=== PATIENT | male | born 1980 | race African-American/Black ===

== ENCOUNTER 2023-07-24 14:29 | Emergency (ER) | payer BC, SELFPAY ==
[2023-07-24] VITALS (12 sets, daily range): BP systolic 141–179; BP diastolic 85–114; PULSE 85–104; RESP 13–25; TEMP 37; O2SAT 91–99
--- NOTE | ~2023-07-24 | CT_ITS ---
EXAMINATION: CT abdomen pelvis w con DATE: 07/24/2023 15:36 INDICATION: Epigastric tenderness TECHNIQUE: Computed tomography (CT) of the abdomen and pelvis was performed with 100 mL Omnipaque-350 intravenous contrast. Automated exposure control and iterative reconstruction technique were employe d. The dose-length product was 1716.12 mGy-cm. COMPARISON: CT dated 10/09/2013 FINDINGS: Aside nodules in the right lower lobe along with calcified right hilar and mediastinal lymph nodes co nsistent with old granulomatous disease. Heart size is normal. No pericardial or pleural effusion. Li frank, gallbladder, spleen, pancreas, bilateral adrenal glands and kidneys are normal. Normal appendix. Postoperative change of interval ventral hernia repair. Multiple loops extend along the undulating c ontour of a likely mesh at the site of repair. A small loop of small bowel appears to extend to a res idual hernia to the left of midline at the site of prior repair, unclear whether this extends through a defect in the mass or at the margin of the mesh. No bowel obstruction. Bladder is normal. No free intraperitoneal gas or fluid. No pathologically enlarged abdominal or pelvic lymphadenopathy. Mild t horacic spondylosis. IMPRESSION: 1. Interval ventral hernia repair, likely with mesh persistent herniation of a nonobstructed small lo op of small bowel at the site of repair, unclear whether this is a defect in the mesh or peripheral t o the mass. Reviewed, dictated and finalized at location A. IMPRESSION: 1. Interval ventral hernia repair, likely with mesh persistent herniation of a nonobstructed small loop of small bowel at the site of repair, unclear whether this is a defect in the mesh or peripheral to the mass.
[2023-07-24 14:59] LABS: Basophils Absolute Auto 0.1 K/mm3 (0.0-0.1); Basophils Percent Auto 0.4 % (0.2-1.2); Eosinophils Absolute Auto 0.2 K/mm3 (0-0.3); Eosinophils Percent Auto 1.4 % (0-4.4); Hemoglobin 16.4 g/dL (14.0-18.0); Immature Granulocyte Absolute 0.05 K/mm3 (0.00-0.031); Immature Granulocyte Percent A 0.4 % (0-0.5); Lymphocytes Absolute Auto 4.75 K/mm3 (0.9-3.2); Mean Corpuscular HGB Conc 33.5 g/dl (32-36); Mean Corpuscular Hemoglobin 29.1 pg (26-34); Mean Corpuscular Volume 86.9 fl (80-100); Mean Platelet Volume 10.3 fl (7.4-10.4); Monocytes Absolute Auto 0.7 K/mm3 (0.1-0.6); Monocytes Percent Auto 5.6 % (2.6-8.5); Neutrophils Absolute Auto 6.5 K/mm3 (1.3-6.7); Neutrophils Percent Auto 53.2 % (45.5-73.1); Platelet Count Result 382 k/mm3 (150-375); Red Blood Count 5.64 M/mm3 (4.6-6.20); Red Cell Distribution Width 12.2 % (11.5-14.5); White Blood Count 12.2 K/mm3 (4.5-10.0)
[2023-07-24 15:05] LABS: Alanine Aminotransferase 28 U/L (6-50); Albumin Level 4.4 g/dL (3.5-5.1); Alkaline Phosphatase 95 U/L (38-126); Anion Gap 10 mmol/L (4-12); Aspartate Amino Transferase 26 U/L (17-59); Bilirubin,Total 0.6 mg/dL (0.2-1.3); Blood Urea Nitrogen 12 mg/dL (9-20); Calcium 9.3 mg/dL (8.4-10.2); Carbon Dioxide 25 mmol/L (22-30); Chloride 101 mmol/L (98-107); Estimated CRCL calculation 176 ml/min; Estimated Glomerular Filt Rate > 60; Glucose 384 mg/dL (65-110); Lipase 81 U/L (23-300); Potassium 4.1 mmol/L (3.4-5.0); Sodium 136 mmol/L (137-145)
--- NOTE | 2023-07-24 15:16 | ED.ABDPAIN ---
HPI - Abdominal Pain General Chief Complaint: Abdominal Pain Stated Complaint: abd pain Time Seen by Provider: 07/24/23 14:37 Source: patient Mode of arrival: ambulatory Limitations: no limitations History of Present Illness HPI narrative: this is a 43-year-old male who presents to the ED with chief complaint of abdominal pain ongoing for the past several weeks. It is intermittent in nature. Unsure of exact exacerbating factors but does note worsening with certain movements or positions. He also states sometimes food makes it worse. Located primarily in the epigastrium but has been described as diffuse as well. Reports history of multiple hernia repairs in the past. He has had SBO in the past but does not feel the same today. Endorses regular bowel movements and regular urination. Denies fevers, chills, nausea, vomiting Related Data Allergies Allergy/AdvReac Type Severity Reaction Status Date / Time No Known Allergies Allergy Verified 07/24/23 14:44 [facility] Social History Social History (System 06/24/20 @ 09:41 by Alan Grande) Smoking status: Never smoker Alcohol intake: never Course Vital Signs Vital signs: Vital Signs Temperature 98.6 F 07/24/23 14:33 Pulse Rate 95 07/24/23 14:33 Respiratory Rate 14 07/24/23 14:33 Blood Pressure 141/89 H 07/24/23 14:33 Pulse Oximetry 98 07/24/23 14:33 Oxygen Delivery Room Air 07/24/23 14:33 Temperature 98.6 F 07/24/23 14:33 Pulse Rate 89 07/24/23 16:37 Respiratory Rate 16 07/24/23 16:37 Blood Pressure 144/90 H 07/24/23 16:37 Pulse Oximetry 94 07/24/23 16:37 Oxygen Delivery Room Air 07/24/23 14:33 MDM - Abdominal Pain MDM Narrative Medical decision making narrative: This is a 43-year-old male who presents to the ED with chief complaint of generalized abdominal pain for the past month. Vitals are normal. Exam is remarkable for the above. No peritoneal signs. He is not toxic appearing. Lab work shows mildly elevated white count of 12.2, consistent with acute phase reaction. Glucose is 384. He has also had symptoms of diabetes And has only been taking metformin 500 once daily. Urinalysis unremarkable, aside from glucose CT abdomen and pelvis with IV contrast: IMPRESSION: 1. Interval ventral hernia repair, likely with mesh persistent herniation of a nonobstructed small loop of small bowel at the site of repair, unclear whether this is a defect in the mesh or peripheral to the mass.. Overall presentation is consistent with uncomplicated hernia. Pain is controlled here. Follow-up given for surgery. We also discussed that he needs to increase his metformin to twice daily and talk to his PCP about his elevated sugars. He was given 2 L of fluids here. Pt will be discharged in stable condition. Return precautions given and supportive measures discussed. Pt is understanding and agreeable with plan for discharge and follow-up with PCP. Lab Data 07/24/23 14:45 07/24/23 14:45 Labs: Lab Results 07/24/23 Range/Units 14:45 WBC 12.2 H (4.5-10.0) K/mm3 RBC 5.64 (4.6-6.20) M/mm3 Hgb 16.4 (14.0-18.0) g/dL Hct 49.0 (42.0-52.0) % MCV 86.9 (80-100) fl MCH 29.1 (26-34) pg MCHC 33.5 (32-36) g/dl RDW 12.2 (11.5-14.5) % Plt Count 382 H (150-375) k/mm3 MPV 10.3 (7.4-10.4) fl Immature Gran % (Auto) 0.4 (0-0.5) % Neut % (Auto) 53.2 (45.5-73.1) % Lymph % (Auto) 39.0 (18.3-44.2) % [place] % (Auto) 5.6 (2.6-8.5) % Eos % (Auto) 1.4 (0-4.4) % Baso % (Auto) 0.4 (0.2-1.2) % Lymph # (Auto) 4.75 H (0.9-3.2) K/mm3 [place] # (Auto) 0.7 H (0.1-0.6) K/mm3 Eos # (Auto) 0.2 (0-0.3) K/mm3 Baso # (Auto) 0.1 (0.0-0.1) K/mm3 Abs Immat Gran (auto) 0.05 H (0.00-0.031) K/mm3 Absolute Neuts (auto) 6.5 (1.3-6.7) K/mm3 Absolute Nucleated RBC 0.000 (0.0-0.012) K/mm3 Nucleated RBC % 0.0 (0.0-0.2) % Sodium 136 L (137-145) mmol/L Potassium 4.1 (3.4-5
[2023-07-24 15:26] LABS: Add Urine Microscopic? YES; Appearance Urine Clear (Clear); Bacteria Urine None Seen /hpf; Bilirubin Urine Negative (Negative); Blood Urine 1+ (Negative); Color Urine Yellow (Yellow); Glucose Urine UA 3+ mg/dL (Negative); Ketones Urine Negative (Negative); Leukocyte Esterase Ur Negative LEU/UL (Negative); Need Manual Microscopic Reviewed; Nitrate Urine Negative (Negative); Non Pathogenic Casts 0-2; Protein Urine Negative (Negative); RBC Urine 0-2 /hpf (0-2); Specific Grav Ur 1.038 (1.001-1.035); Squamous Epithelial Cell Urine None Seen /hpf (Few); Urobilinogen Urine 0.2 mg/dL (<2.0); pH Urine 5.5 (5.0-9.0)
--- NOTE | 2023-07-24 15:36 | PC.NURSE ---
Pt to CT scan via stretcher at this time.
[2023-07-24] MEDS: SODIUM CHLORIDE 0.9% IV 1,000 ML 999 ML IV CONT ×2 (15:42→15:43)
[2023-07-24] MEDS: ONDANSETRON INJ 4 MG/2 ML VIAL IV PUSH (15:43)
[2023-07-24] MEDS: MORPHINE SULFATE (*CRX) 4 MG/ML INJ IV PUSH (15:43)
== END 2023-07-24 16:55 | disposition home or self-care (01) ==
PROVIDERS: Emergency Medicine; Emergency Provider Physician Assistant; PCP Family Medicine
DX: K46.9 Unspecified abdominal hernia without obstruction or gangrene (principal); R73.9 Hyperglycemia, unspecified
CPT/HCPCS: 36415; 74177; 80053; 81001; 83690; 85025; 87086; 87088; 96361; 96374; 96375; 99284; J2270; J2405; J7030; Q9967

== ENCOUNTER 2024-10-27 11:06 | Inpatient (IN) | payer SELFPAY ==
[2024-10-27] VITALS (17 sets, daily range): BP systolic 125–187; BP diastolic 72–106; PULSE 127–144; RESP 21–49; TEMP 37.3–40.3; O2SAT 92–97; BMI 45.6
--- NOTE | ~2024-10-27 | CT_ITS ---
EXAMINATION: CT chest abdomen pelvis w con DATE: 10/27/2024 14:30 INDICATION: Sepsis. TECHNIQUE: Computed tomography (CT) of the chest, abdomen, and pelvis was performed with 100 mL Omnipaque 350 intravenous contrast. Automated exposure control and iterative reconstruction technique were employed. The dose-length product was 3955.72 mGy-cm. COMPARISON: CT abdomen and pelvis 07/24/2023 FINDINGS: CHEST CT: The lungs demonstrate mild atelectasis. Calcified right hilar lymph nodes are consistent with old granulomatous disease. No pleural effusion. The heart size is normal. No pericardial effusion. There is wall thickening of the esophagus. There is mild thoracic spondylosis. ABDOMEN/PELVIS CT: The liver, gallbladder, spleen, pancreas, adrenal glands, and kidneys are normal. There is a ventral hernia containing nonobstructed small and large bowel. The appendix is normal. There are no pathologically enlarged lymph nodes. There is no free intraperitoneal fluid. There is mild lumbar spondylosis. IMPRESSION: 1. Wall thickening of the esophagus, which may be edema or esophagitis. 2. Ventral hernia containing nonobstructed small and large bowel. Reviewed, dictated and finalized at location E.
--- NOTE | ~2024-10-27 | US_ITS ---
BILATERAL LOWER EXTREMITY VENOUS DUPLEX Clinical History: edema, immobility . Comparison: None. Technique: Grayscale, color, duplex/spectral Doppler sonography bilateral lower extremities. Findings: Bilateral common femoral, femoral, popliteal, and calf veins compressible and color Doppler patent. Normal augmentation with distal compression. No internal echoes. Bilateral Klein's cysts. IMPRESSION: 1. No DVT either leg. 2. Bilateral Klein's cysts. Reviewed, dictated and finalized at location R.
--- NOTE | ~2024-10-27 | XR_ITS ---
Examination: XR chest 2V Clinical History: weakness, SOB, NUMBNESS IN LEGS Comparison: None Technique: PA and Lateral Findings: Cardiomediastinal silhouette normal size and configuration. Lungs clear. No acute bony abnormality. IMPRESSION: 1. No acute cardiopulmonary findings. Reviewed, dictated and finalized at location R.
--- NOTE | ~2024-10-27 | CT_ITS ---
EXAMINATION: CT hip RT wo con DATE: 10/30/2024 11:58 INDICATION: Right hip pain TECHNIQUE: High resolution computed tomography (CT) of the right hip was performed without intravenous contrast. Additional sagittal and coronal reconstructions were performed. Automated exposure control and iterative reconstruction technique were employed. The dose-length product was 1055.12 mGy-cm. COMPARISON: 10/27/2024 FINDINGS: Alignment is normal. No fracture or suspected osteonecrosis. 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 There is anterior right acetabular over coverage which could predispose towards pincer-type femoral acetabular impingement. No right hip joint effusion or other abnormal fluid collections. Visualized portions of bowels including the appendix are normal. Minimal lower lumbar spondylosis. IMPRESSION: 1. Mild degenerative skeletal changes the right hip, bilateral sacralized joints and visualized lower lumbar spine. No acute osseous abnormality. Reviewed, dictated and finalized at location A. IMPRESSION: 1. Mild degenerative skeletal changes the right hip, bilateral sacralized joint s and visualized lower lumbar spine. No acute osseous abnormality.
--- NOTE | ~2024-10-27 | CT_ITS ---
EXAMINATION: CT cervical spine w con DATE: 10/28/2024 16:56 INDICATION: Bacteremia. Muscle weakness. TECHNIQUE: Computed tomography (CT) of the cervical spine was performed with 100 mL Omnipaque 350 intravenous contrast. Automated exposure control and iterative reconstruction technique were employed. The dose-length product was 570.44 mGy-cm. COMPARISON: None FINDINGS: There is kyphosis of cervical spine. There is 3 mm dextrocurvature of cervical spine. Vertebral body heights are normal. There is mildly decreased disc height at C4-C5 and C5-C6 and severely decreased disc height at C6-C7. The following disc levels are specifically discussed: C2-C3: There is mild right uncovertebral joint osteoarthritis. There is no facet joint osteoarthritis. There is no neural foraminal stenosis. There is no central canal stenosis. C3-C4: There is no uncovertebral joint osteoarthritis. There is no facet joint osteoarthritis. There is no neural foraminal stenosis. There is no central canal stenosis. C4-C5: There is no uncovertebral joint osteoarthritis. There is mild bilateral facet joint osteoarthritis. There is no neural foraminal stenosis. There is no central canal stenosis. C5-C6: There is mild bilateral uncovertebral joint osteoarthritis. There is mild bilateral facet joint osteoarthritis. There is mild bilateral neural foraminal stenosis. There is mild central canal stenosis. C6-C7: There is severe bilateral uncovertebral joint osteoarthritis. There is moderate right and mild left facet joint osteoarthritis. There is mild right neural foraminal stenosis. There is mild central canal stenosis. C7-T1: There is no uncovertebral joint osteoarthritis. There is no facet joint osteoarthritis. There is moderate bilateral neural foraminal stenosis. There is no central canal stenosis. IMPRESSION: 1. Severe cervical spondylosis. Reviewed, dictated and finalized at location E.
--- NOTE | ~2024-10-27 | CT_ITS ---
EXAMINATION: CT thoracic lumbar w con DATE: 10/28/2024 16:57 INDICATION: Bacteremia. Muscle weakness. TECHNIQUE: Computed tomography (CT) of the thoracic and lumbar spine was performed with 100 mL Omnipaque 350 intravenous contrast. Automated exposure control and iterative reconstruction technique were employed. The dose-length product was 2216.34 mGy-cm. COMPARISON: None FINDINGS: CT THORACIC SPINE: There is 5 degrees dextrocurvature of thoracic spine. Vertebral body heights are normal. There is mildly decreased disc height from T3-T4 through T6-T7 and at T9-T10. There is multilevel severe facet joint osteoarthritis. There is mild neural foraminal stenosis at multiple levels on either side. On the right, there is moderate neural foraminal stenosis at T1-T2. On the left, there is moderate neural foraminal stenosis at T6-T7. There is mild central canal stenosis at T4-T5 and T5-T6. CT LUMBAR SPINE: Alignment is normal. Vertebral body heights are normal. There is mildly decreased disc height at L4-L5. There is multilevel [id number] facet joint osteoarthritis. The discs are bulging from L3-L4 through L5-S1. There is mild bilateral neural foraminal stenosis from L3-L4 through L5-S1. There is mild central canal stenosis at the disc levels from L3-L4 through L5- S1. IMPRESSION: 1. Mild thoracic and lumbar spondylosis. Reviewed, dictated and finalized at location E.
--- NOTE | 2024-10-27 11:21 | ECG_ITS ---
Test Date: 2024-10-27 11:46:24 Measurements Intervals [place] Rate: 141 P: 63 KS: 144 QRS: 10 QRSD: 101 T: 15 QT: 276 QTc: 423 Interpretive Statements SINUS TACHYCARDIA LOW VOLTAGE POOR R-WAVE PROGRESSION ABNORMAL RHYTHM ECG No previous ECG available for comparison Electronically Signed On 10-27-2024 12:12:51 CDT by Umer Feliciano M.D.
[2024-10-27 12:27] LABS: Alanine Aminotransferase 41 U/L (6-50); Albumin Level 3.0 g/dL (3.5-5.1); Alkaline Phosphatase 254 U/L (38-126); Anion Gap 12 mmol/L (4-12); Aspartate Amino Transferase 52 U/L (17-59); Bilirubin,Total 1.9 mg/dL (0.2-1.3); Blood Urea Nitrogen 23 mg/dL (9-20); Calcium 9.4 mg/dL (8.4-10.2); Carbon Dioxide 20 mmol/L (22-30); Chloride 88 mmol/L (98-107); Estimated CRCL calculation 145 ml/min; Estimated Glomerular Filt Rate > 60; Glucose 348 mg/dL (65-110); Potassium 5.1 mmol/L (3.4-5.0); Sodium 120 mmol/L (137-145); Total Protein 8.0 g/dL (6.3-8.2)
[2024-10-27 12:30] LABS: Hematocrit 39.3 % (42.0-52.0); Hemoglobin 13.2 g/dL (14.0-18.0); Immature Granulocyte Percent A 2.8 % (0-0.5); Lymphocytes Absolute Auto 1.09 K/mm3 (0.9-3.2); Mean Corpuscular HGB Conc 33.6 g/dl (32-36); Mean Corpuscular Hemoglobin 28.9 pg (26-34); Mean Corpuscular Volume 86.0 fl (80-100); Nucleated Red Blood Cells Absolute Auto 0.000 K/mm3 (0.0-0.012); Nucleated Red Blood Cells Perc 0.0 % (0.0-0.2); Platelet Count Result 259 k/mm3 (150-375); Red Blood Count 4.57 M/mm3 (4.6-6.20); White Blood Count 23.6 K/mm3 (4.5-10.0)
[2024-10-27 12:47] LABS: Schistocytes None Seen
[2024-10-27 13:05] LABS: Influenza A QL RT-PCR Negative (Negative); Influenza B QL RT-PCR Negative (Negative); RSV RNA, RT-PCR Negative (Negative); SARS-CoV-2 RNA PCR Negative (Negative)
[2024-10-27 13:26] LABS: INR 1.8; Partial Thromboplastin Time 31.0 Seconds (22.3-36.8); Prothrombin Time 20.4 Seconds (11.1-14.7)
--- NOTE | 2024-10-27 13:30 | PC.NURSE ---
ICE BAGS PLACED TO AXILLA AND BEHIND NECK DUE TO NOTED ELEVATED TEMP
[2024-10-27 13:40] LABS: Troponin I < 0.012 ng/mL (0.000-0.034)
--- NOTE | 2024-10-27 13:43 | PC.NURSE ---
attempt to place FC without success. attempted straight cath without success. patient was incontinent of urine.
[2024-10-27] MEDS: SODIUM CHLORIDE 0.9% IV 1,000 ML 999 ML IV CONT ×2 (13:55→13:56)
[2024-10-27] MEDS: SODIUM CHLORIDE 0.9% IV 500 ML 999 ML IV CONT (13:56)
[2024-10-27 13:59] LABS: Add Urine Microscopic? YES; Appearance Urine Cloudy (Clear); Glucose Urine UA 3+ mg/dL (Negative); Leukocyte Esterase Ur Negative LEU/UL (Negative); Need Manual Microscopic Reviewed; Nitrate Urine Negative (Negative); Non Pathogenic Casts >20; Specific Grav Ur 1.028 (1.001-1.035)
[2024-10-27 14:04] LABS: CRP 42.4 mg/dL (<1.0)
--- OUTSIDE RECORDS SUMMARY | 2024-10-27 14:54 | XMS_ITS | Clinical Summary ---
Author Organization [facility] Address [address] [place] [address] Phone Care Team Providers Care Cctv Technician Name Role Phone Herrera Morse MD Primary Care Provider [phone] Social History Tobacco Use Types Packs/Day Years Used Date Smoking Tobacco: Never Assessed Sex and Gender Information Value Date Recorded Sex Assigned at Not on file Legal Sex Male 8:20 AM CDT Gender Identity Not on file Sexual Orientation Not on file Plan of Treatment Upcoming Encounters Date Type Department Care Team (Late st Contact Info) Description 11/23/2024 3:00 PM CDT Office Visit [facility] - Endocrinology [facility] [address] [place] [address] Carmelo Otero MD [address] [facility] [address] [address] Health Maintenance Due Date Last Done Comments Hepatitis C Virus (HCV) Screening 1982 Hepatitis B Immunization (1 of 3 - 19+ 3-dose series) 2001 Human Papillomavirus (HPV) Immunization (1 - 3-dose SCDM series) 2009 SARS-COV-2 Immunization ( season) 2023 04/25/2020 Influenza Immunization (#1) 2024 01/15/2024 Respiratory Syncytial Virus (RSV) Immunization (Adult) (1 - 1-dose 75+ series) 2057 TdaP Immunization Completed 10/18/2022 Meningococcal Immunization (ACWY) Aged Out No longer eligible based on patient's age to complete this topic Pneumococcal Immunization Combined Aged Out No longer eligible based on patient's age to complete this topic Rotavirus Immunization Aged Out No lo nger eligible based on patient's age to complete this topic Care Teams Cctv Technician Relationship Specialty Start Date End Date Herrera Morse MD [address] [id number] PCP - General Internal Medicine 09/04/24
[2024-10-27] MEDS: CEFEPIME 1 GM in SODIUM CHLORIDE 0.9% IV 50 ML 100 ML IVPB ×2 (15:21→18:46)
--- NOTE | 2024-10-27 15:22 | P.HP_ITS ---
H&P: HPI History of Present Illness Date/Time: 10/27/24 15:22 Chief Complaint: Weakness Narrative: 44-year-old male presents the hospital with complaints of weakness. Due to patient's severe tachypnea he is unable to talk in complete sentences and is unable to give any details. No soft tissue infection found. Scrotal irritation present however the patient has been urinating on himself. According to nursing patient has been sitting in a recliner for some time due to feeling extremely ill. Patient states that we can give his brother medical information. And that he would want to be intubated for respiratory distress. Patient has a temperature 104.5? the emergency room, heart rate 144, 32 respirations per minute pulse ox at 95, on room air blood pressure of 143/90. His lab work shows leukocytosis at 23.6 hemoglobin of 13.2, sodium of 120 potassium of 5.1, chloride of 88, carbon dioxide 20, him BUN of 23, glucose of 348, lactic acid 2.8 followed by 1.9, alkaline phos of 254, total bili of 1.9, troponin negative, CRP 42.2 UA is cloudy with 2+ bilirubin, 21-50 rbc's negative for leukocyte esterase, negative for nitrates, chest x-ray shows no acute cardiopulmonary process. CT chest abdomen and pelvis show thickening of the esophagus edema versus esophagitis and ventricle hernia containing nonobstructive small bowel and large bowel. EKG shows sinus tachycardia at 141. Blood cultures have been taken. However there is no definitive infective source will admit to ICU. Patient started on IV fluids and cefepime with repeat labs at 6:00 p.m.. Review of Systems Review of Systems: ROS unobtainable: Yes unobtainable due to medical condition [facility] Past Medical History Medical History Diabetes Surgical History Surgical History History of incisional hernia repair Laparoscopic w mesh-2012 Open w mesh-2013 Family History Family History (Updated 10/27/24 @ 17:11 by Brandi Nino RN) Other Unknown family medical history Social History Social History Smoking status: Never smoker Alcohol intake: never Lack of Transportation: No Lack of Food: Never True Current Housing: I Have Housing Concerned About Future Housing: No Difficulty Paying Gas/Electric Bills: No Difficulty Paying for Meds: No Currently Unemployed: No Education: Decline to Answer Difficulty w/ Childcare or Family Care: No Spiritual care concerns: No Meds Home Medications and Allergies Home Medications ?Medication ?Instructions ?Recorded ?Confirmed ?Type ibuprofen 200 mg tablet 200 mg PO Q6H PRN fever or p ain 07/30/23 10/27/24 History metformin 500 mg tablet 500 mg PO DAILY 07/30/23 History Allergies Allergy/AdvReac Type Severity Reaction Status Date / Time No Known Allergies Allergy Verified 10/27/24 13:22 Vital Signs Vital Signs - 24 hr 10/27/24 11:08 10/27/24 11:25 10/27/24 13:37 Temperature 99.9 F H Pulse Rate 143 H 132 H 140 H Respiratory Rate 38 H 28 H Blood Pressure 187/106 H Pulse Oximetry 97 Oxygen Delivery Room Air 10/27/24 13:46 10/27/24 14:34 Temperature 104.5 F H Pulse Rate 144 H 137 H Respiratory Rate 32 H 35 H Blood Pressure 143/90 H 146/85 H Pulse Oximetry 95 93 Oxygen Delivery Exam Narrative: General: Mild distress HEENT: normocephalic, atraumatic. Mucous membranes moist. EOMI, PERRLA, bilateral sclera anicteric, no conjunctival injection. Neck supple without JVD, lymphadenopathy, or bruit. Respiratory: Diminished, tachypneic Cardiovascular: Tachycardic, Regular rate and rhythm, normal S1-S2 upon ascultation. No murmurs, rubs, or clicks. PMI is nondisplaced, capillary refill less than 3 second. Abdomen: Soft, round, no pulsatile masses, nondistended and nontender. No rebound, no guarding. Bowel sounds present to all four quadrants. No high pitch or tinkling sounds, resonant to percussion. Extremities: No cyanosis, clubbing,. Pulses are palpable 2/2. Weak in all 4 extremities Neuro: Alert and orientated x 4. PERRLA. Cranial nerves 2-12 intact without focal deficit. Skin: Diaphoretic Psych: pleasant, cooperative, normal speech, normal affect, no hallucinations, no dysarthia H&P: Results Labs Labs: Short CBC 10/27/24 Range/Units 12:06 WBC 23.6 H (4.5-10.0) K/mm3 Hgb 13.2 L D (14.0-18.0) g/dL Hct 39.3 L (42.0-52.0) % Plt Count 259 (150-375) k/mm3 BMP 10/27/24 12:06 Sodium 120 L Potassium 5.1 H Chloride 88 L Carbon Dioxide 20 L BUN 23 H D Creatinine 0.89 Glucose 348 H Calcium 9.4 Cardiac Enzymes 10/27/24 Range/Units 12:06 Troponin I < 0.012 (0.000-0.034) ng/mL Liver Function 10/27/24 Range/Units 12:06 Total Bilirubin 1.9 H (0.2-1.3) mg/dL AST 52 (17-59) U/L ALT 41 (6-50) U/L Alkaline Phosphatase 254 H (38-126) U/L Albumin 3.0 L (3.5-5.1) g/dL Urine 10/27/24 Range/Units 13:42 Urine Color Dark yellow (Yellow) Urine Appearance Cloudy H (Clear) Urine pH 6.0 (5.0-9.0) Ur Specific [place] 1.028 (1.001-1.035) Urine Protein 2+ H (Negative) mg/dL Urine Glucose (UA) 3+ H (Negative) mg/dL Assessment and Plan Assessment and plan (1) Acute respiratory failure: Code(s): J96.00 - Acute respiratory failure, unspecified whether with hypoxia or hypercapnia Status: Acute Assessment and Plan: Patient is severely tachypneic 30-50 breaths per minute ABG Holding off on intubation for now per ICU attending (2) Sepsis: Qualifiers: Sepsis acute organ dysfunction status: without acute organ dysfunction Sepsis type: sepsis due to unspecified organism Qualified Code(s): A41.9 - Sepsis, unspecified organism Code(s): A41.9 - Sepsis, unspecified organism Status: Acute Assessment and Plan: Patient with leukocytosis, fever, tachypnea, tachycardia on presentation with elevated lactic acid UA negative for infection, CT abdomen pelvis negative for infection, no soft tissue infection found unknown source Blood cultures pending Repeat labs at 6 pm Cefepime Fluid bolus in IVF aggressive fluid hydration Urine drug screen (3) DKA (diabetic ketoacidosis): Code(s): E11.10 - Type 2 diabetes mellitus with ketoacidosis without coma Status: Acute Assessment and Plan: Insulin drip per protocol Accu-Cheks q.1 hour BMP q.4 IVF (4) Acute hyponatremia: Code(s): E87.1 - Hypo-osmolality and hyponatremia Status: Acute Assessment and Plan: Nephrology consult BMP q.4 (5) Diabetes: Code(s): E11.9 - Type 2 diabetes mellitus without complications Status: Acute Assessment and Plan: Hold home diabetic medications Plan Contact phone number for patient's brother is not working. Patient does not have his cell phone with him and does not know his mother's phone number. When asked if anybody knows that the patient is in the hospital. He states that he put it on is [employer] an several people like it. Will contact nursing and warehouse technician to find contact information for family. Was able to get a Hold brother and he was able to come up to the ICU Quality VTE Prophylaxis VTE prophylaxis: mechanical ordered and pharmacologic ordered Hospitalist [facility] Advance Care Plan I have confirmed that the patient's Advanced Care Plan is present, code status is documented, or surrogate decision maker is listed in patient medical record.: Yes Medication Reconciliation I have utilized all available resources to obtain, update and review the patients current medications (includes all prescriptions, OTC, herbals, cannabis, and nutritional supplements).: Yes
--- NOTE | 2024-10-27 15:27 | ED.GENADULT ---
HPI - General Adult General Chief complaint: Weakness Stated complaint: unable to ambulate Time Seen by Provider: 10/27/24 12:27 Source: patient Mode of arrival: EMS Limitations: no limitations History of Present Illness HPI narrative: A 44-year-old with a history of morbid obesity, diabetes was brought in from home by EMS with complaints of generalized weakness associated with lower extremity pain. As per the EMS patient is being sitting in his recliner for unknown period of time. Upon EMS arrival patient was found to be soaking in his urine. Patient states that he is unable to walk secondary to pain in his lower extremities. He denies any fall. No history of fever or chills. Denies any nausea, vomiting or diarrhea. Patient states that he has not been taking his medication as well. Denies alcohol use. Related Data Home Medications ?Medication ?Instructions ?Recorded ?Confirmed ?Last Taken ?Type ibuprofen 200 mg tablet 200 mg PO Q6H PRN 07/30/23 08/02/23 Unknown History metformin 500 mg tablet 500 mg PO DAILY 07/30/23 08/02/23 Unknown History Allergies Allergy/AdvReac Type Severity Reaction Status Date / Time No Known Allergies Allergy Verified 10/27/24 13:22 Review of Systems Review of Systems: All systems reviewed & are unremarkable except as noted in HPI and below Constitutional: Constitutional: Reports no additional constitutional complaints Eyes: Eyes: Reports no additional eye complaints ENT: Reports system reviewed and no additional complaints, except as documented Cardiovascular: Cardiovascular: Reports no additional cardiovascular complaints Respiratory: Respiratory: Reports no additional respiratory complaints Gastrointestinal: Gastrointestinal: Reports no additional gastrointestinal complaints Genitourinary: Genitourinary: Reports no additional male genitourinary complaints Musculoskeletal: Musculoskeletal: Reports as per HPI Neurologic: Reports system reviewed and no additional complaints, except as documented [facility] Past Medical History Medical History Diabetes Surgical History Surgical History History of incisional hernia repair Laparoscopic w mesh-2012 Open w mesh-2013 Social History Social History Smoking status: Never smoker Alcohol intake: never Exam Narrative: GENERAL: Ill appearing,morbidly obese HEAD: Normocephalic, atraumatic. EYES: PERRLA and EOMI. ENT: Nares clear, no rhinorrhea or epistaxis. Mucous membranes moist. NECK: Supple. CHEST: Clear to auscultation. No respiratory distress. HEART: Tachycardic No murmur heard. Normal peripheral pulses. ABDOMEN: Soft, nontender, nondistended, normal active bowel sounds. EXTREMITIES: Normal range of motion. No edema. SKIN: Warm, dry, no rash. NEURO: No focal deficits. Alert and oriented x3. PSYCH: Normal mood and affect. Course Course Emergency Course: Patient upon arrival with a. The extremely ill he had a dry oral mucosa, tachycardic, tachypneic. Did order a sepsis workup on him did give him 2.5 L of normal saline bolus. Obtained lab work and CT of chest abdomen and pelvis. He is found to have elevated WBC count, sodium of 120 and a sepsis lactate of 2.9. his till remained tachycardic even after hydration . Discussed the findings with Dr. Barney advised to hydrate , continue Cefepime and consult Nephro . Vital Signs Vital signs: Vital Signs Temperature 37.7 C H 10/27/24 11:08 Pulse Rate 143 H 10/27/24 11:08 Respiratory Rate 38 H 10/27/24 11:08 Blood Pressure 187/106 H 10/27/24 11:08 Pulse Oximetry 97 10/27/24 11:08 Oxygen Delivery Room Air 10/27/24 11:08 Temperature 40.3 C H 10/27/24 13:46 Pulse Rate 137 H 10/27/24 14:34 Respiratory Rate 35 H 10/27/24 14:34 Blood Pressure 146/85 H 10/27/24 14:34 Pulse Oximetry 93 10/27/24 14:34 Oxygen Delivery Room Air 10/27/24 11:08 Medical Decision Making MDM Narrative Medical decision making narrative: 44-year-old with morbid, measures area of pain just not feeling well, generalized weakness. Upon arrival he is tachypneic started will do septic workup. Differential Diagnosis Differential Diagnosis: sepsis, pneumonia , dehydration , DKA .electrolyte abnormality Medical Records Medical records reviewed: Yes I reviewed the external patient's medical records. Vital Signs Vital Signs: Vital Signs Temperature 37.7 C H 10/27/24 11:08 Pulse Rate 143 H 10/27/24 11:08 Respiratory Rate 38 H 10/27/24 11:08 Blood Pressure 187/106 H 10/27/24 11:08 Pulse Oximetry 97 10/27/24 11:08 Oxygen Delivery Room Air 10/27/24 11:08 Temperature 40.3 C H 10/27/24 13:46 Pulse Rate 137 H 10/27/24 14:34 Respiratory Rate 35 H 10/27/24 14:34 Blood Pressure 146/85 H 10/27/24 14:34 Pulse Oximetry 93 10/27/24 14:34 Oxygen Delivery Room Air 10/27/24 11:08 Lab Data Lab results reviewed: Yes I reviewed the patient's lab results. 10/27/24 12:06 10/27/24 12:06 Labs: Lab Results 10/27/24 10/27/24 10/27/24 Range/Units 12:06 12:09 13:42 WBC 23.6 H (4.5-10.0) K/mm3 RBC 4.57 L (4.6-6.20) M/mm3 Hgb 13.2 L D (14.0-18.0) g/dL Hct 39.3 L (42.0-52.0) % MCV 86.0 (80-100) fl MCH 28.9 (26-34) pg MCHC 33.6 (32-36) g/dl RDW 13.8 (11.5-14.5) % Plt Count 259 (150-375) k/mm3 MPV 9.8 (7.4-10.4) fl Immature Gran % (Auto) 2.8 H (0-0.5) % Neut % (Auto) 88.0 H (45.5-73.1) % Lymph % (Auto) 4.6 L (18.3-44.2) % [place] % (Auto) 4.0 (2.6-8.5) % Eos % (Auto) 0.0 (0-4.4) % Baso % (Auto) 0.6 (0.2-1.2) % Lymph # (Auto) 1.09 (0.9-3.2) K/mm3 [place] # (Auto) 0.9 H (0.1-0.6) K/mm3 Eos # (Auto) 0.0 (0-0.3) K/mm3 Baso # (Auto) 0.2 H (0.0-0.1) K/mm3 Abs Immat Gran (auto) 0.65 H (0.00-0.031) K/mm3 Absolute Neuts (auto) 20.8 H (1.3-6.7) K/mm3 Absolute Nucleated RBC 0.000 (0.0-0.012) K/mm3 Band Neutrophils % Not Reportable Nucleated RBC % 0.0 (0.0-0.2) % Platelet Estimate Adequate (Adequate) Large Platelets Present Schistocytes None seen PT 20.4 H (11.1-14.7) Seconds INR 1.8 APTT 31.0 (22.3-36.8) Seconds Sodium 120 L (137-145) mmol/L Potassium 5.1 H (3.4-5.0) mmol/L Chloride 88 L (98-107) mmol/L Carbon Dioxide 20 L (22-30) mmol/L Anion Gap 12 (4-12) mmol/L BUN 23 H D (9-20) mg/dL Creatinine 0.89 (0.7-1.3) mg/dL Estim Creat Clear Calc 145 ml/min Estimated GFR > 60 (59 - ) Glucose 348 H (65-110) mg/dL Lactic Acid 2.9 H (0.7-2.0) mmol/L Calcium 9.4 (8.4-10.2) mg/dL Total Bilirubin 1.9 H (0.2-1.3) mg/dL AST 52 (17-59) U/L ALT 41 (6-50) U/L Alkaline Phosphatase 254 H (38-126) U/L Troponin I < 0.012 (0.000-0.034) ng/mL C-Reactive Protein 42.4 H (<1.0) mg/dL Total Protein 8.0 (6.3-8.2) g/dL Albumin 3.0 L (3.5-5.1) g/dL Urine Color Dark yellow (Yellow) Urine Appearance Cloudy H (Clear) Urine pH 6.0 (5.0-9.0) Ur Specific [place] 1.028 (1.001-1.035) Urine Protein 2+ H (Negative) mg/dL Urine Glucose (UA) 3+ H (Negative) mg/dL Urine Ketones 2+ H (Negative) mg/dL Ur Blood (Man) 2+ H (Negative) Urine Nitrate Negative (Negative) Urine Bilirubin 2+ H (Negative) Urine Urobilinogen 4.0 H (<2.0) mg/dL Add Ur Microanalysis Reviewed Leukocyte Esterase Rfl Negative (Negative) LINDA/UL Urine RBC 21-50 H (0-2) /hpf Urine WBC 0-5 (0-3) /hpf Ur Squamous Epith Cells Few (Few) /hpf Urine Bacteria None seen /hpf Urine Casts >20 Granular Casts 1-2 H (None) /lpf Influenza A (RT-PCR) Negative (Negative) Influenza B (RT-PCR) Negative (Negative) RSV (RT-PCR) Negative (Negative) SARS-CoV-2 RNA (RT-PCR) Negative (Negative) 10/27/24 Range/Units 15:06 WBC (4.5-10.0) K/mm3 RBC (4.6-6.20) M/mm3 Hgb (14.0-18.0) g/dL Hct (42.0-52.0) % MCV (80-100) fl MCH (26-34) pg MCHC (32-36) g/dl RDW (11.5-14.5) % Plt Count (150-375) k/mm3 MPV (7.4-10.4) fl Immature Gran % (Auto) (0-0.5) % Neut % (Auto) (45.5-73.1) % Lymph % (Auto) (18.3-44.2) % [place] % (Auto) (2.6-8.5) % Eos % (Auto) (0-4.4) % Baso % (Auto) (0.2-1.2) % Lymph # (Auto) (0.9-3.2) K/mm3 [place] # (Auto) (0.1-0.6) K/mm3 Eos # (Auto) (0-0.3) K/mm3 Baso # (Auto) (0.0-0.1) K/mm3 Abs Immat Gran (auto) (0.00-0.031) K/mm3 Absolute Neuts (auto) (1.3-6.7) K/mm3 Absolute Nucleated RBC (0.0-0.012) K/mm3 Band Neutrophils % Nucleated RBC % (0.0-0.2) % Platelet Estimate (Adequate) Large Platelets Schistocytes PT (11.1-14.7) Seconds INR APTT (22.3-36.8) Seconds Sodium (137-145) mmol/L Potassium (3.4-5.0) mmol/L Chloride (98-107) mmol/L Carbon Dioxide (22-30) mmol/L Anion Gap (4-12) mmol/L BUN (9-20) mg/dL Creatinine (0.7-1.3) mg/dL Estim Creat Clear Calc ml/min Estimated GFR (59 - ) Glucose (65-110) mg/dL Lactic Acid 1.9 (0.7-2.0) mmol/L Calcium (8.4-10.2) mg/dL Total Bilirubin (0.2-1.3) mg/dL AST (17-59) U/L ALT (6-50) U/L Alkaline Phosphatase (38-126) U/L Troponin I (0.000-0.034) ng/mL C-Reactive Protein (<1.0) mg/dL Total Protein (6.3-8.2) g/dL Albumin (3.5-5.1) g/dL Urine Color (Yellow) Urine Appearance (Clear) Urine pH (5.0-9.0) Ur Specific [place] (1.001-1.035) Urine Protein (Negative) mg/dL Urine Glucose (UA) (Negative) mg/dL Urine Ketones (Negative) mg/dL Ur Blood (Man) (Negative) Urine Nitrate (Negative) Urine Bilirubin (Negative) Urine Urobilinogen (<2.0) mg/dL Add Ur Microanalysis Leukocyte Esterase Rfl (Negative) LINDA/UL Urine RBC (0-2) /hpf Urine WBC (0-3) /hpf Ur Squamous Epith Cells (Few) /hpf Urine Bacteria /hpf Urine Casts Granular Casts (None) /lpf Influenza A (RT-PCR) (Negative) Influenza B (RT-PCR) (Negative) RSV (RT-PCR) (Negative) SARS-CoV-2 RNA (RT-PCR) (Negative) ABG Data Attestation: I personally reviewed and interpreted this ABG as follows: Interpretation: Normal Imaging Data Radiologist's impression: ITS Impressions Chest X-Ray 10/27/24 12:54 IMPRESSION: 1. No acute cardiopulmonary findings. Chest/Abdomen/Pelvis CT 10/27/24 14:37 IMPRESSION: 1. Wall thickening of the esophagus, which may be edema or esophagitis. 2. Ventral hernia containing nonobstructed small and large bowel. ECG Data EKG #1: ECG completion date: 10/27/24 ECG completion time: 11:46 EKG Interpretation: tachycardia (141), no ST changes and normal QRS Critical Care Time Critical Care Time Total Critical Care Time: 60 Discharge Plan Discharge Clinical Impression: Acute hyponatremia, Morbid obesity with BMI of 45.0-49.9, adult Sepsis Qualifiers: Sepsis type: sepsis due to unspecified organism Sepsis acute organ dysfunction status: without acute organ dysfunction Qualified Code(s): A41.9 - Sepsis, unspecified organism Patient Disposition: Still a Patient Condition: Critical Time of Disposition: 15:29
[2024-10-27] MEDS: ONDANSETRON INJ 4 MG/2 ML VIAL IV PUSH (15:50)
[2024-10-27 16:11] LABS: Alveolar/Arterial O2 Gradient 57.1 mmHg; Fractional Inspired Oxygen 21 %; HCO3 ABG 19.1 mEq/l (22.0-26.0); Oxygen Content ABG 16.4 %vol (16.0-22.0); Oxygen Saturation ABG 91.0 % (95.0-100.0); PCO2 ABG 29.5 mmHg (35.0-45.0); PO2 ABG 57.3 mmHg (80.0-100.0); PO2 FiO2 Ratio Arterial Blood 2.73 %
[2024-10-27] MEDS: ACETAMINOPHEN 650 MG SUPPOSITORY RECTAL (16:11)
[2024-10-27 16:12] LABS: Modified Allen's Test Pass; Site Drawn RIGHT RADIAL
[2024-10-27 16:17] LABS: Procalcitonin 9.1 ng/mL
--- NOTE | 2024-10-27 16:38 | ADMGEN ---
This patient, Pillo Bullard, was admitted to Intensive Care Unit-7. Patient/family oriented to hospital policies and general routines including ID bracelet, bed and alarms, visiting hours, pain management, procedures, bathroom and other care routines, personal items, smoking policy, room service/diet, and visiting hours. Information on how to activate the Rapid Response Team has been discussed. Patient/Family are encouraged to report perceived risks to care and to ask questions if they do not understand what they are told or what they should do.
[2024-10-27 16:39] LABS: Thyroid Stimulating Hormone Reflex 0.478 uIU/mL (0.465-4.68)
[2024-10-27 17:06] LABS: MRSA (PCR) DETECTED (NOT DETECTE)
--- NOTE | 2024-10-27 17:21 | PCCCNOTE ---
Asked by the Heating Technician to attempt to contact family. Stated the pt does not have his cell phone to contact his brother. No current record noted in the pt's chart. Spoke with the pt's nurse in ICU and heard the pt give verbal permission to speak with the brother Alfredo Torres? Pt was unable to spell his last name. Called [employer] at [phone] and spoke with dispatch #[id number] and requested a wellness check to share the pt's status and have him please call the hospital in which they are agreeable to do so.-sierra
--- NOTE | 2024-10-27 17:25 | PC.NURSE ---
Called Maryan Bang, asked to come assess patient at bedside. Spoke to her about patient's respirations being anywhere from high 30's-50's. Stated patient is very sweaty and color is off. Patient is still tachycardiac but it is improving.
[2024-10-27 17:26] LABS: Hematocrit 37.0 % (42.0-52.0); Hemoglobin 12.4 g/dL (14.0-18.0); Immature Granulocyte Percent A 2.9 % (0-0.5); Lymphocytes Absolute Auto 0.84 K/mm3 (0.9-3.2); Mean Corpuscular HGB Conc 33.5 g/dl (32-36); Mean Corpuscular Hemoglobin 28.9 pg (26-34); Mean Corpuscular Volume 86.2 fl (80-100); Nucleated Red Blood Cells Absolute Auto 0.000 K/mm3 (0.0-0.012); Nucleated Red Blood Cells Perc 0.0 % (0.0-0.2); Platelet Count Result 214 k/mm3 (150-375); Red Blood Count 4.29 M/mm3 (4.6-6.20); White Blood Count 19.8 K/mm3 (4.5-10.0)
[2024-10-27 17:39] LABS: Alanine Aminotransferase 31 U/L (6-50); Albumin Level 2.6 g/dL (3.5-5.1); Alkaline Phosphatase 234 U/L (38-126); Anion Gap 9 mmol/L (4-12); Aspartate Amino Transferase 46 U/L (17-59); Bilirubin,Total 1.4 mg/dL (0.2-1.3); Blood Urea Nitrogen 26 mg/dL (9-20); Calcium 8.6 mg/dL (8.4-10.2); Carbon Dioxide 17 mmol/L (22-30); Chloride 95 mmol/L (98-107); Creatine Kinase 118 U/L (55-170); Estimated CRCL calculation 151 ml/min; Estimated Glomerular Filt Rate > 60; Glucose 325 mg/dL (65-110); Potassium 4.6 mmol/L (3.4-5.0); Sodium 121 mmol/L (137-145); Total Protein 6.6 g/dL (6.3-8.2)
[2024-10-27 17:44] LABS: Hemoglobin A1C 10.8 % (<5.7)
[2024-10-27 17:56] LABS: Beta-Hydroxybutyrate/Acetoace. 1.29 mmol/L (0.02-0.27)
[2024-10-27] MEDS: LACTATED RINGERS 1,000 ML 999 ML IV CONT (18:49)
[2024-10-27] MEDS: INSULIN HUMAN REGULAR (*BKC) 100 UNITS in SODIUM CHLORIDE 0.9% IV 99 ML 15 UNITS IV CONT (20:52)
[2024-10-27] MEDS: SODIUM CHLORIDE 0.9% IV 1,000 ML 150 ML IV CONT (20:52)
--- NOTE | 2024-10-27 21:10 | PC.NURSE ---
Spoke with patient's brother, Aflredo, over the phone. Alfredo does not have a phone, but will have the patient's phone to be contacted. Patient's number is [phone].
[2024-10-27] MEDS: KCL 20 MEQ/D5/0.45% SOD CHL 1,000 ML 150 ML IV CONT (22:05)
[2024-10-27 22:14] LABS: Anion Gap 11 mmol/L (4-12); Blood Urea Nitrogen 25 mg/dL (9-20); Calcium 8.7 mg/dL (8.4-10.2); Carbon Dioxide 16 mmol/L (22-30); Chloride 96 mmol/L (98-107); Estimated CRCL calculation 165 ml/min; Estimated Glomerular Filt Rate > 60; Glucose 331 mg/dL (65-110); Potassium 4.5 mmol/L (3.4-5.0); Sodium 123 mmol/L (137-145)
[2024-10-27 22:42] LABS: Alveolar/Arterial O2 Gradient 62.9 mmHg; Carboxyhemoglobin 0.9 % THb (0-2.0); Fractional Inspired Oxygen 24 %; HCO3 ABG 21.4 mEq/l (22.0-26.0); Methemoglobin ABG 0.1 %THb (0-1.5); Oxygen Content ABG 16.7 %vol (16.0-22.0); Oxygen Saturation ABG 93.7 % (95.0-100.0); PCO2 ABG 34.5 mmHg (35.0-45.0); PO2 ABG 67.2 mmHg (80.0-100.0); PO2 FiO2 Ratio Arterial Blood 2.80 %; Reduced Hemoglobin 6.6 %THb (0-5.0)
[2024-10-27 22:44] LABS: Site Drawn RIGHT RADIAL
[2024-10-27 22:45] LABS: Liters per Minute 1.0 LPM; Modified Allen's Test Pass
[2024-10-27] MEDS: CEFEPIME 2 GM in SODIUM CHLORIDE 0.9% IV 50 ML 100 ML IVPB (22:57)
[2024-10-27 23:31] LABS: Cannabinoid Screen Urine Negative (Negative)
[2024-10-27] MEDS: IBUPROFEN IV 800 MG/200 ML 800 MG/200 ML BAG 400 MG IVPB (23:35)
[2024-10-28] VITALS (19 sets, daily range): BP systolic 108–144; BP diastolic 69–110; PULSE 102–130; RESP 16–36; TEMP 36.4–38.8; O2SAT 90–100
--- NOTE | 2024-10-28 | ECHO_ITS ---
Patient Info Name: Pillo Bullard Age: 44 years : 1980 Gender: Male Ht: 72 in Wt: 337 lbs BSA: 2.86 m2 HR: 106 bpm BP: 144 / 87 mmHg Heart Rhythm: Sinus Rhythm Technical Quality: Good Exam Date: 10/28/2024 3:18 PM Patient Status: I Admit Date: 10/27/2024 Exam Type: CA echo dop color flow w con Complete two-dimensional, color flow and Doppler transthoracic echocardiogram is performed with contrast to opacify the left ventricle and to improve the deliniation of the left ventricle endocardial borders. Staff Referring Physician: Radha Rucker Collator Hand: Micheline Isbell Attending Provider: Radha Rucker Contrast/Agitated Saline Contrast/Ag. Saline: Definity Amount: 2.00 ml Summary 1. Left ventricular chamber dimension is normal. 2. Left ventricular systolic function is normal, estimated at 65-70. 3. There is moderately increased left ventricular wall thickness. 4. The left ventricular diastolic function is normal. 5. There is mild tricuspid valve regurgitation. 6. No vegetations are seen, but this is not a definitive study for analysis of endocarditis. Left Ventricle Left ventricular chamber dimension is normal. Left ventricular systolic function is normal, estimated at 65-70. There is moderately increased left ventricular wall thickness. The left ventricular diastolic function is normal. Right Ventricle Right ventricular chamber dimension is normal. Right ventricular systolic function is normal. Left Atria Left atrial chamber dimension is normal. Right Atria Right atrial chamber dimension is normal. Atrial Septum Intact interatrial septum visualized by color flow imaging. Aortic Valve The aortic valve is trileaflet. There is no aortic valve sclerosis. There is no aortic valve stenosis. There is trace aortic valve regurgitation. Pulmonic Valve The pulmonic valve is normal. There is no pulmonic valve stenosis. There is trace pulmonic regurgitation. Mitral Valve The mitral valve has normal leaflets. There is no mitral valve stenosis. There is trace mitral valve regurgitation. Tricuspid Valve The tricuspid valve leaflets are normal. There is no significant tricuspid valve stenosis. There is mild tricuspid valve regurgitation. No pulmonary hypertension, estimated pulmonary arterial systolic pressure is 29 mmHg. Pericardium/Pleural The pericardium appears normal. There is no pericardial effusion. Inferior Vena Cava Normal inferior vena cava with >50% collapse upon inspiration consistent with normal right atrial pressure, 5 mmHg. Aorta The aortic root size at the sinus of Valsalva is normal. Left Ventricular Outflow Tract Name Value Normal LVOT 2D LVOT Diameter 2.2 cm LVOT Doppler LVOT Peak Velocity 130 cm/s LVOT Peak Gradient 7 mmHg LVOT Mean Gradient 3 mmHg LVOT VTI 22 cm LVOT Stroke Volume 88 ml LVOT CO 9.3 l/min LVOT CI 3.2 l/min/m2 Pulmonic Valve Name Value Normal RVOT Doppler RVOT Peak Velocity 95 cm/s RVOT Peak Gradient 4 mmHg PV Doppler PV Peak Velocity 142 cm/s PV Peak Gradient 8 mmHg Mitral Valve Name Value Normal MV Diastolic Function MV E Peak Velocity 109 cm/s MV A Peak Velocity 106 cm/s MV E/A 1.0 MV Decel Time (PW) 163 ms MV Annular TDI MV E/e' (Septal) 7.2 MV E/e' (Lateral) 6.8 MV E/e' (Average) 7.0 Tricuspid Valve Name Value Normal Estimated PAP/RSVP RA Pressure 5 mmHg <=5 PA Systolic Pressure 29 mmHg <36 Aortic Valve Name Value Normal AV Doppler AV Peak Velocity 161 cm/s AV Peak Gradient 10 mmHg AV Area (Cont Eq Krishan) 3.2 cm2 AV DI (Krishan) 0.81 AV Regurgitation 2D LVOT Area 3.9 cm2 Ventricles Name Value Normal LV Dimensions 2D/MM IVS Diastolic Thickness (2D) 1.3 cm 0.6-1.0 LVID Diastole (2D) 5.0 cm 4.2-5.8 LVIW Diastolic Thickness (2D) 1.4 cm 0.6-1.0 LVID Systole (2D) 3.1 cm 2.5-4.0 LVOT Diameter 2.2 cm LV Mass (2D Cubed) 272.01 g 88.00-224.00 LV Mass Index (2D Cubed) 95 g/m2 49-115 Relative Wall Thickness (2D) 0.56 <=0.42 LV Fractional Shortening/Ejection Fraction 2D/MM LV Fractional Shortening (2D) 38 % 25-43 LV EF (2D Teichholz) 68 % LV Diastolic Volume (4C MOD) 124 ml LV EF (4C MOD) 69 % LV Diastolic Volume (2C MOD) 109 ml LV EF (2C MOD) 66 % LV Diastolic Volume (BP MOD) 121 ml 62-150 LV Diastolic Volume Index (BP MOD) 42 ml/m2 34-74 LV Systolic Volume (BP MOD) 37 ml 21-61 LV Systolic Volume Index (BP MOD) 13 ml/m2 11-31 LV EF (BP MOD) 69 % 52-72 LV Diastolic Length (4C) 8.9 cm LV Systolic Length (4C) 7.4 cm LV Stroke Volume (4C MOD) 86 ml Atria Name Value Normal LA Dimensions LA Volume (4C A-L) 62 ml LA Volume (BP A-L) 83 ml RA Dimensions RA Systolic Major [place] Length (4C) 5.0 cm 2.1-2.7 RA Area (4C) 14.0 cm2 <=18.0 Report Signatures
[2024-10-28 01:08] LABS: Anion Gap 7 mmol/L (4-12); Blood Urea Nitrogen 24 mg/dL (9-20); Calcium 8.8 mg/dL (8.4-10.2); Carbon Dioxide 20 mmol/L (22-30); Chloride 100 mmol/L (98-107); Estimated CRCL calculation 159 ml/min; Estimated Glomerular Filt Rate > 60; Glucose 182 mg/dL (65-110); Potassium 3.9 mmol/L (3.4-5.0); Sodium 127 mmol/L (137-145)
[2024-10-28] MEDS: KCL 20 MEQ/D5/0.45% SOD CHL 1,000 ML 150 ML IV CONT (04:47)
[2024-10-28] MEDS: CEFEPIME 2 GM in SODIUM CHLORIDE 0.9% IV 50 ML 100 ML IVPB ×3 (05:03→21:26)
[2024-10-28 05:10] LABS: Anion Gap 4 mmol/L (4-12); Blood Urea Nitrogen 27 mg/dL (9-20); Calcium 8.6 mg/dL (8.4-10.2); Carbon Dioxide 22 mmol/L (22-30); Chloride 101 mmol/L (98-107); Estimated CRCL calculation 165 ml/min; Estimated Glomerular Filt Rate > 60; Glucose 223 mg/dL (65-110); Potassium 4.2 mmol/L (3.4-5.0); Sodium 127 mmol/L (137-145)
[2024-10-28 07:11] LABS: Hematocrit 35.4 % (42.0-52.0); Hemoglobin 11.5 g/dL (14.0-18.0); Immature Granulocyte Percent A 4.3 % (0-0.5); Lymphocytes Absolute Auto 1.23 K/mm3 (0.9-3.2); Mean Corpuscular HGB Conc 32.5 g/dl (32-36); Mean Corpuscular Hemoglobin 29.0 pg (26-34); Mean Corpuscular Volume 89.2 fl (80-100); Nucleated Red Blood Cells Absolute Auto 0.000 K/mm3 (0.0-0.012); Nucleated Red Blood Cells Perc 0.0 % (0.0-0.2); Platelet Count Result 166 k/mm3 (150-375); Red Blood Count 3.97 M/mm3 (4.6-6.20); White Blood Count 18.9 K/mm3 (4.5-10.0)
[2024-10-28 07:34] LABS: Anion Gap 5 mmol/L (4-12); Blood Urea Nitrogen 26 mg/dL (9-20); Calcium 8.6 mg/dL (8.4-10.2); Carbon Dioxide 21 mmol/L (22-30); Chloride 100 mmol/L (98-107); Estimated CRCL calculation 193 ml/min; Estimated Glomerular Filt Rate > 60; Glucose 248 mg/dL (65-110); Potassium 4.3 mmol/L (3.4-5.0); Sodium 126 mmol/L (137-145)
[2024-10-28 07:50] LABS: Schistocytes None Seen
[2024-10-28] MEDS: INSULIN GLARGINE (*BKC) 100 UNITS/ML 20 UNITS SUB-Q (08:20)
[2024-10-28] MEDS: PANTOPRAZOLE SODIUM IV 40 MG VIAL IV PUSH (08:21)
[2024-10-28] MEDS: SODIUM CHLORIDE 0.45% 1,000 ML 75 ML IV CONT (08:22)
--- NOTE | 2024-10-28 09:26 | P.CONIN_ITS ---
Assessment and Plan Assessment and plan (1) DKA (diabetic ketoacidosis): Code(s): E11.10 - Type 2 diabetes mellitus with ketoacidosis without coma Status: Acute (2) Diabetes: Code(s): E11.9 - Type 2 diabetes mellitus without complications Status: Acute (3) Morbid obesity with BMI of 45.0-49.9, adult: Code(s): E66.01 - Morbid (severe) obesity due to excess calories; Z68.42 - Body mass index [BMI] 45.0-49.9, adult Status: Acute (4) Hyponatremia: Code(s): E87.1 - Hypo-osmolality and hyponatremia Status: Acute (5) Sepsis: Qualifiers: Sepsis acute organ dysfunction status: without acute organ dysfunction Sepsis type: sepsis due to unspecified organism Qualified Code(s): A41.9 - Sepsis, unspecified organism Code(s): A41.9 - Sepsis, unspecified organism Status: Acute (6) Metabolic acidosis: Code(s): E87.20 - Acidosis, unspecified Status: Acute (7) Hyperkalemia: Code(s): E87.5 - Hyperkalemia Status: Acute (8) UTI (urinary tract infection): Code(s): N39.0 - Urinary tract infection, site not specified Status: Acute Plan Patient presented with this picture of tachycardia tachypnea dehydration fever consistent with SIRS vs sepsis. He had mildly elevated lactic acidosis but elevated procalcitonin and WBC. He also had labs consistent with DKA. He had hyponatremia although not as severe after correction for elevated blood glucose. His imaging does not suggest any focus of infection except abnormal UA. Patient also complained of dysuria during history which would fit with UTI. Patient was started on DKA protocol. Symptoms have improved and his mental status has improved along with acidosis. I will transition him to subcutaneous insulin with Lantus and with meal insulin Start diabetic diet Consult dietitian and hard candy batch mixer Patient was started on cefepime which will be continued Blood and urine cultures have been sent and are pending His acidosis improving and renal function is stable His tachycardia has improved His UDS did test positive for cocaine which may have contributed to some of the symptoms although patient denied drug use to me With regard to hyponatremia patient sodium was low but after correction for glucose it was 126 and has improved to 130. Nephrology is following and managing. I will continue fluids at half-normal saline at 75 mL/hours for now Lovenox for DVT prophylaxis Incentive spirometry Consult PT OT Poultry Picking Machine Tender Consult Note Consult date: 10/28/24 Reason for consult: Sepsis, hyponatremia, DKA HPI: Pillo Bullard is a 44 year old male with past medical history of ? diabetes and hernia presented yesterday to ER with chief complaint of feeling sick and weak. Patient states that he thinks that he has hyper blood pressure and diabetes but has not sought any medical care. He is currently not on any treatment although he was supposed to be on metformin. From last few days he has been feeling sick with inability to eat. Feeling weak and tired and unable to get up. He was feeling dizzy on standing up. He denied any chest pain but felt short of breath. He denied any belly pain nausea vomiting but had diarrhea. He also had dysuria. He denies any hematuria hematochezia melena. He denies any blurred vision. All other systems were reviewed and were negative. In the ER patient was tachycardic afebrile and tachypneic. He was not very hypoxic and was maintaining his oxygenation on 2 L nasal cannula his blood pressure was elevated. Lab work showed leukocytosis at 23.6 hemoglobin of 13.2, sodium of 120 potassium of 5.1, chloride of 88, carbon dioxide 20, him BUN of 23, glucose of 348, lactic acid 2.8 followed by 1.9, alkaline phos of 254, total bili of 1.9, troponin negative, CRP 42.2 UA is cloudy with 2+ bilirubin, 21-50 rbc's negative for leukocyte esterase, negative for nitrates, chest x-ray shows no acute cardiopulmonary process. CT chest abdomen and pelvis show thickening of the esophagus edema versus esophagitis and ventricle hernia containing nonobstructive small bowel and large bowel. EKG shows sinus tachycardia at 141. Blood cultures were drawn. Patient was started on empiric broad-spectrum antibiotics and IV fluids. Patient was given IV fluid bolus and started infusion. Patient was admitted to ICU. Nephrology was consulted. On arrival to ICU I requested nurse to check a beta hydroxybutyrate which was elevated suggestive of mild DKA. His HbA1c was >10. Patient was started on DKA protocol. This morning when I see evaluate the patient he states he feels much better and denies any new complaints. He is now alert oriented x3. He is on a on insulin drip at 2 units along with IV fluids. His IV fluid rate with tested by manager molecular due to his sodium level. He denies any new complaints. He states he is hungry now and would like to eat food. Review of Systems 2 Review of Systems: All systems reviewed & are unremarkable except as noted in HPI and below (HPI) [facility] Past Medical History Medical History Diabetes Surgical History Surgical History History of incisional hernia repair Laparoscopic w mesh-2012 Open w mesh-2013 Family History Family History Other Unknown family medical history Social History Social History (Updated 10/28/24 @ 09:35 by Guzman Barney MD) Social History: Patient denies any smoking or drug use but admits to drinking 2 shots of vodka every day Smoking status: Never smoker Alcohol intake: never Lack of Transportation: No Lack of Food: Never True Current Housing: I Have Housing Concerned About Future Housing: No Difficulty Paying Gas/Electric Bills: No Difficulty Paying for Meds: No Currently Unemployed: No Education: Decline to Answer Difficulty w/ Childcare or Family Care: No Spiritual care concerns: No Meds Home Medications and Allergies Home Medications ?Medication ?Instructions ?Recorded ?Confirmed ?Type ibuprofen 200 mg tablet 200 mg PO Q6H PRN fever or p ain 07/30/23 10/27/24 History metformin 500 mg tablet 500 mg PO DAILY 07/30/23 History Allergies Allergy/AdvReac Type Severity Reaction Status Date / Time No Known Allergies Allergy Verified 10/27/24 13:22 Vital Signs Vital Signs - 24 hr 10/27/24 11:08 10/27/24 11:25 10/27/24 13:37 Temperature 37.7 C H Pulse Rate 143 H 132 H 140 H Respiratory Rate 38 H 28 H Blood Pressure 187/106 H Pulse Oximetry 97 Oxygen Delivery Room Air Oxygen Flow Rate 10/27/24 13:46 10/27/24 14:34 10/27/24 14:46 Temperature 40.3 C H Pulse Rate 144 H 137 H 139 H Respiratory Rate 32 H 35 H 31 H Blood Pressure 143/90 H 146/85 H 156/77 H Pulse Oximetry 95 93 96 Oxygen Delivery Oxygen Flow Rate 10/27/24 15:17 10/27/24 15:47 10/27/24 16:11 Temperature 38.8 C H Pulse Rate 139 H 139 H Respiratory Rate 49 H 30 H Blood Pressure 152/84 H 141/74 H Pulse Oximetry 95 96 Oxygen Delivery Oxygen Flow Rate 10/27/24 16:43 10/27/24 16:44 10/27/24 16:44 Temperature 37.7 C H Pulse Rate 138 H 140 H Respiratory Rate 44 H Blood Pressure 155/93 H Pulse Oximetry 94 Oxygen Delivery Room Air Oxygen Flow Rate 10/27/24 16:48 10/27/24 18:00 10/27/24 18:00 Temperature Pulse Rate 144 H 133 H 133 H Respiratory Rate 25 H 46 H Blood Pressure 125/72 Pulse Oximetry 96 93 Oxygen Delivery Oxygen Flow Rate 10/27/24 20:00 10/27/24 20:00 10/27/24 20:00 Temperature 37.3 C Pulse Rate 128 H 127 H Respiratory Rate 49 H Blood Pressure 142/85 H Pulse Oximetry 92 94 Oxygen Delivery Room Air Oxygen Flow Rate 10/27/24 22:00 10/27/24 22:00 10/27/24 22:46 Temperature Pulse Rate 129 H 129 H Respiratory Rate 21 H Blood Pressure 130/80 Pulse Oximetry 95 97 Oxygen Delivery Nasal Cannula Oxygen Flow Rate 3 10/27/24 23:24 10/27/24 23:35 10/28/24 00:00 Temperature 39.1 C H 39.1 C H Pulse Rate Respiratory Rate Blood Pressure Pulse Oximetry 98 Oxygen Delivery Nasal Cannula Oxygen Flow Rate 3 10/28/24 00:00 10/28/24 00:00 10/28/24 00:35 Temperature 37.3 C Pulse Rate 126 H 126 H Respiratory Rate 33 H Blood Pressure 131/73 Pulse Oximetry 97 Oxygen Delivery Oxygen Flow Rate 10/28/24 02:00 10/28/24 02:00 10/28/24 04:00 Temperature 37.2 C Pulse Rate 111 H 111 H 102 H Respiratory Rate 35 H 31 H Blood Pressure 116/76 121/69 Pulse Oximetry 96 97 Oxygen Delivery Oxygen Flow Rate 10/28/24 04:00 10/28/24 04:00 10/28/24 06:00 Temperature Pulse Rate 103 H 102 H Respiratory Rate Blood Pressure Pulse Oximetry 98 Oxygen Delivery Nasal Cannula Oxygen Flow Rate 3 10/28/24 06:00 10/28/24 08:00 10/28/24 08:00 Temperature 36.5 C Pulse Rate 102 H 107 H Respiratory Rate 30 H 29 H Blood Pressure 144/88 H 135/85 Pulse Oximetry 97 90 Oxygen Delivery Room Air Oxygen Flow Rate 10/28/24 08:00 10/28/24 08:20 10/28/24 08:40 Temperature Pulse Rate 105 H Respiratory Rate Blood Pressure Pulse Oximetry 100 90 Oxygen Delivery Nasal Cannula Oxygen Flow Rate 2 Exam 2 Narrative: General: Pt is alert awake and in NAD Lungs/Chest: Trachea central Clear BS B/L, No crackles or wheezing. Cardiac: RRR. Normal S1 S2. No murmurs Circulation: Pedal pulses are intact and symmetrical. Abdomen: Normal bowel sounds. Obese. Soft. NT. ND. Extremities: No clubbing, cyanosis or edema. Warm : Nick in place Neurologic: Follows commands. Moves all 4 extremities, he appears generalized weak but his strength is symmetric in all 4 extremities. No facial asymmetry. Cranial nerves2- 12 intact, extraocular muscles intact, PERRL AO x3, sensation to touch intact Skin: No Rash Results Labs 10/28/24 07:05 10/28/24 12:06 Labs: Short CBC 10/27/24 10/27/24 10/28/24 Range/Units 12:06 17:18 07:05 WBC 23.6 H 19.8 H 18.9 H (4.5-10.0) K/mm3 Hgb 13.2 L D 12.4 L 11.5 L (14.0-18.0) g/dL Hct 39.3 L 37.0 L 35.4 L (42.0-52.0) % Plt Count 259 214 166 (150-375) k/mm3 BMP 10/27/24 10/27/24 10/27/24 12:06 17:18 21:08 Sodium 120 L 121 L 123 L Potassium 5.1 H 4.6 4.5 Chloride 88 L 95 L 96 L Carbon Dioxide 20 L 17 L 16 L BUN 23 H D 26 H 25 H Creatinine 0.89 0.85 0.77 Glucose 348 H 325 H 331 H Calcium 9.4 8.6 8.7 10/28/24 10/28/24 10/28/24 00:51 04:50 07:05 Sodium 127 L 127 L 126 L Potassium 3.9 4.2 4.3 Chloride 100 101 100 Carbon Dioxide 20 L 22 21 L BUN 24 H 27 H 26 H Creatinine 0.80 0.77 0.65 L Glucose 182 H 223 H 248 H Calcium 8.8 8.6 8.6 Cardiac Enzymes 10/27/24 10/27/24 Range/Units 12:06 17:18 Total Creatine Kinase 118 (55-170) U/L Troponin I < 0.012 (0.000-0.034) ng/mL Liver Function 10/27/24 10/27/24 Range/Units 12:06 17:18 Total Bilirubin 1.9 H 1.4 H (0.2-1.3) mg/dL AST 52 46 (17-59) U/L ALT 41 31 (6-50) U/L Alkaline Phosphatase 254 H 234 H (38-126) U/L Albumin 3.0 L 2.6 L (3.5-5.1) g/dL Urine 10/27/24 Range/Units 13:42 Urine Color Dark yellow (Yellow) Urine Appearance Cloudy H (Clear) Urine pH 6.0 (5.0-9.0) Ur Specific [place] 1.028 (1.001-1.035) Urine Protein 2+ H (Negative) mg/dL Urine Glucose (UA) 3+ H (Negative) mg/dL Quality VTE Prophylaxis VTE prophylaxis: pharmacologic ordered Hospitalist MIPS Advance Care Plan I have confirmed that the patient's Advanced Care Plan is present, code status is documented, or surrogate decision maker is listed in patient medical record.: Yes Medication Reconciliation I have utilized all available resources to obtain, update and review the patients current medications (includes all prescriptions, OTC, herbals, cannabis, and nutritional supplements).: Yes
[2024-10-28] MEDS: INSULIN ASPART (*BKC) 100 UNITS/ML SUB-Q ×4 (09:53→20:22)
[2024-10-28 12:57] LABS: Anion Gap 3 mmol/L (4-12); Blood Urea Nitrogen 20 mg/dL (9-20); Calcium 8.7 mg/dL (8.4-10.2); Carbon Dioxide 28 mmol/L (22-30); Chloride 97 mmol/L (98-107); Estimated CRCL calculation 205 ml/min; Estimated Glomerular Filt Rate > 60; Glucose 227 mg/dL (65-110); Potassium 4.0 mmol/L (3.4-5.0); Sodium 128 mmol/L (137-145)
[2024-10-28] MEDS: SODIUM CHLORIDE 0.9% IV 1,000 ML 75 ML IV CONT (13:12)
--- NOTE | 2024-10-28 13:50 | P.CONNP_ITS ---
Assessment and Plan Assessment and plan (1) Hyponatremia: Code(s): E87.1 - Hypo-osmolality and hyponatremia Status: Acute Assessment and Plan: * acute versus acute on chronic versus chronic?? * last labs available are from July 2023 -- sodium 136mmol/L at that time * suspect hyperglycemia more to blame with regard to hyponatremia * corrected sodium on admission (with glucose of 348) is closer to 126mmol/L * most recent sodium of 128mmol/L corrects to 131mmol/L * hence. suspicion is he probably has chronic hyponatremia related to hyperglycemia/poor controlled diabetes * however, shilo had a contributing component of volume depletion/dehdyration on admission (prerenal with urine sodium < 5) * however, for completeness, check TSH, cortisol, SPEP, UPEP, and serum/urine osmolality * narcotics contributing?? -- urine drug screen + for cocaine * follow the trend of sodiums (in relation to blood sugars) (2) DKA (diabetic ketoacidosis): Code(s): E11.10 - Type 2 diabetes mellitus with ketoacidosis without coma Status: Acute Assessment and Plan: * resolving * plan transition to Lantus and SSI from insulin gtt * s/p aggressive IVF resuscitation (3) Sepsis: Qualifiers: Sepsis acute organ dysfunction status: without acute organ dysfunction Sepsis type: sepsis due to unspecified organism Qualified Code(s): A41.9 - Sepsis, unspecified organism Code(s): A41.9 - Sepsis, unspecified organism Status: Acute Assessment and Plan: * suggested by tachycardia, tachypnea, leukocytosis, lactic acidosis and elevated procalcitonin * only potential source = possible UTI * follow culture data * on antibiotics (4) Hypertension: Code(s): I10 - Essential (primary) hypertension Status: Acute Assessment and Plan: * elevated on admission * however, better control at this time * follow trend of hemodynamics (5) Weakness: Code(s): R53.1 - Weakness Status: Acute Assessment and Plan: * due to acute illness, deconditioning, and poor ambulation prior to admission * PT/OT evaluation (6) Diabetes: Code(s): E11.9 - Type 2 diabetes mellitus without complications Status: Acute Assessment and Plan: * poor control at baseline * HgbA1c 10.8 * glycemic control per field hockey and lacrosse coach/hospitalist I will continue to follow the patient with you while he remains hospitalized and make further recommendations as deemed necessary. Thank you for allowing me to participate in the care of this patient. L History of Present Illness Reason for Consult Consult date: 10/28/24 Reason for consult: hyponatremia Chief Complaint Chief complaint: Sepsis hyponatremia History of Present Illness Narrative: The patient is a 44-year-old male with a past medical history as outlined below who was transferred to [facility] Emergency Room via EMS from home due to complaints of generalized weakness and feeling sick. Apparently, according to EMS documentation, the patient has been seen in his recliner for a significant but unknown period of time. for last few days, he reports inability to eat or drink and a generalized sensation of feeling sick. Associated symptoms include generalized weakness and fatigue and inability to ambulate much less get up from his recliner. He is so C8-6 attempts at trying to get out of his recliner with dizziness resulting in him sitting back down in his recliner. There was no reported chest pain but he did admit some mild shortness of breath. No associated nausea, vomiting, or abdominal pain but there has been issues with diarrhea. Furthermore, he reports dysuria but no evidence of hematuria, hematochezia, or melena. He denies any palpitations, blurry vision, headaches, or syncope. By the time of EMS arrival, they found the patient sitting in his recliner soaked in urine. Because of the above symptoms, he apparently has not been taking any of his medications although on further assessment, the patient is not entirely clear on what medications he should be taking for his chronic medical issues/ problems as he has not seen any physician with regard to his reported history of hypertension diabetes for a significant period of time. Workup and evaluation emergency room demonstrated the patient to be tachycardic, tachypneic, and hypertensive but afebrile. Routine labs were done which were noteworthy for a white blood cell count of 23.6, hemoglobin 13.2, platelet count of 259, sodium 120, potassium 5.1, chloride 88, bicarb 20, BUN 23, creatinine 0.89, glucose 348, lactic acid 2.8, alkaline phosphatase 254, total bilirubin 1.9, negative troponin, and C reactive protein 42.2. His urinalysis was cloudy with 2+ protein, 3+ glucose, 2+ ketones, 2+ blood, 2+ bilirubin, 21-50 red blood cells, but negative nitrate and leukocyte esterase. Viral testing for influenza, RSV, and COVID were negative as well. Imaging included chest x-ray which demonstrated no acute cardiopulmonary process, and a CT scan of the chest/abdomen/pelvis showing thickening of the wall of the esophagus which may be edema or esophagitis as well as a ventral hernia containing nonobstructive small and large bowel. Due to concerns for sepsis, he received aggressive IV fluid resuscitation and was continued on maintenance IV fluids and after appropriate cultures were obtained, initiated on broad-spectrum antibiotic therapy. He was subsequently transferred to the intensive care unit for further evaluation and therapy. \44 year old male with past medical history of ? diabetes and hernia presented yesterday to ER with chief complaint of feeling sick and weak. Patient states that he thinks that he has hyper blood pressure and diabetes but has not sought any medical care. He is currently not on any treatment although he was supposed to be on metformin. From last few days he has been feeling sick with inability to eat. Feeling weak and tired and unable to get up. He was feeling dizzy on standing up. He denied any chest pain but felt short of breath. He denied any belly pain nausea vomiting but had diarrhea. He also had dysuria. He denies any hematuria hematochezia melena. He denies any blurred vision. All other systems were reviewed and were negative. Upon transfer to the ICU, a beta hydroxybutyrate level was checked which was elevated consistent/ concerning for mild diabetic ketoacidosis. He was started on DKA protocol with IV fluids, insulin drip, and serial chemistries. His insulin drip has been slowly weaned off since his anion gap has closed but he remains on IV fluids. Renal consultation was requested due to his hyponatremia on presentation. Since admission to the ICU, his sodium level has been slowly improving with ongoing interventions/therapy to date but his IV fluids have been adjusted to avoid over-correction. Upon further discussion with the patient, he does not recall ever being told that he ever had any issues or problems with hyponatremia in the past, but as already mentioned, he has not seen a physician for a significant period of time with regard to his chronic medical issues and problems much less any recent blood work done either. The last sodium level I have available to me is from about a year ago in July of 2023 where his sodium level was slightly low at 136 millimoles per L. it is difficult to say if his hyponatremia on presentation was causing any of the symptoms that he had on presentation to the ER but the suspicion is it was likely at least a contributing component. Currently, at the time my evaluation, the patient states he feels significantly better and is without acute complaints. Review of Systems 2 Review of Systems: As per HPI. [facility] Past Medical History Medical History Diabetes Surgical History Surgical History History of incisional hernia repair Laparoscopic w mesh-2012 Open w mesh-2013 Family History Family History Other Unknown family medical history Social History Social History (Updated 10/28/24 @ 09:35 by Guzman Barney MD) Social History: Patient denies any smoking or drug use but admits to drinking 2 shots of vodka every day Smoking status: Never smoker Alcohol intake: never Lack of Transportation: No Lack of Food: Never True Current Housing: I Have Housing Concerned About Future Housing: No Difficulty Paying Gas/Electric Bills: No Difficulty Paying for Meds: No Currently Unemployed: No Education: Decline to Answer Difficulty w/ Childcare or Family Care: No Spiritual care concerns: No Meds Home Medications and Allergies Home Medications ?Medication ?Instructions ?Recorded ?Confirmed ?Type ibuprofen 200 mg tablet 200 mg PO Q6H PRN fever or p ain 07/30/23 10/27/24 History metformin 500 mg tablet 500 mg PO DAILY 07/30/23 History Allergies Allergy/AdvReac Type Severity Reaction Status Date / Time No Known Allergies Allergy Verified 10/27/24 13:22 Vital Signs Vital Signs Temp Pulse Resp BP Pulse Ox O2 Del Method O2 Flow Rate 10/28/24 12:00 97.6 F 111 H 28 H 144/87 H 100 10/28/24 12:00 Room Air 10/28/24 10:00 106 H 25 H 126/94 H 100 10/28/24 10:00 106 H 10/28/24 08:40 90 10/28/24 08:20 100 Nasal Cannula 2 10/28/24 08:00 105 H 10/28/24 08:00 Room Air 10/28/24 08:00 97.7 F 107 H 29 H 135/85 90 10/28/24 06:00 102 H 30 H 144/88 H 97 10/28/24 06:00 102 H 10/28/24 04:00 103 H 10/28/24 04:00 98 Nasal Cannula 3 10/28/24 04:00 98.9 F 102 H 31 H 121/69 97 10/28/24 02:00 111 H 35 H 116/76 96 10/28/24 02:00 111 H Exam 2 Narrative: GENERAL APPEARANCE: large and well developed well nourished male in no acute distress HEENT: normocephalic, atraumatic, normal conjunctiva and sclera, nares patient NECK: no lymphadenopathy, thyromegaly, or JVD MOUTH: normal lips, teeth, and gums CARDIOVASCULAR: RRR, normal S1 and S2, no rub detected RESPIRATORY: clear to auscultation ABDOMEN: obese but soft, nontender, nondistended, positive bowel sounds present EXTREMITIES: no evidence of cyanosis, clubbing, or edema NEUROLOGICAL: alert and oriented x 3; CN II - XII intact bilaterally; + generalized weakness Results Lab Results 10/31/24 04:18 10/31/24 04:18 Lab results: Most recent lab results ABG pH 7.411 (7.350-7.450) 10/27/24 22:33 ABG pCO2 34.5 mmHg (35.0-45.0) L 10/27/24 22:33 ABG pO2 67.2 mmHg (80.0-100.0) L 10/27/24 22:33 ABG HCO3 21.4 mEq/l (22.0-26.0) L 10/27/24 22:33 ABG O2 Saturation 93.7 % (95.0-100.0) L 10/27/24 22:33 Calcium 8.5 mg/dL (8.4-10.2) 10/28/24 23:43
--- NOTE | 2024-10-28 14:06 | PCCDE ---
DM Consult Received 10/27/24 - attempted to see pt today. Providers in with patient - Admitted Sepsis, Hyponatremia, presents with tachypnea + MRSA Per RN pt is poor historian. H/O Type 2 DM - A1C: 0.8 ( ) Glu 348 POC: 10/27: [phone]- 10/28: [phone] - Home Meds: Metformin 500 mg/day - (reportedly not taking) Inpatient Meds: Lantus 20 U QAM (as of 10/28 @ 08:20) Novolog Correction 4-8 U TIDwm, + 2-4 U HS DC'd Human Insulin R IV Cont. - Social: Pt lives with brother - Pt currently with provider with various complaints, work up in progress. I will re-attempt Saturday. (per discussion with RN/MD RECOMMEND: Monitor POC's for potential insulin titration needs. (Discussed with RN) If fasting glu remains >200 Increase Lantus by 20% - > 24 U
[2024-10-28] MEDS: VANCOMYCIN 1,250 MG/NS 250 ML 1,250 MG/250 ML BAG 166.67 MG IVPB ×2 (14:37→17:19)
--- NOTE | 2024-10-28 15:28 | PCPTNOTE ---
PT consulted with nurse prior to going in the room for evaluation, per Nurse, MD ordered CAT scan and given instruction to hold PT at this time. -RR
[2024-10-28] MEDS: PERFLUTREN LIPID MICROSPHERES 1.5 ML VIAL DILUTED TO 10 ML TOTAL VOLUME IV PUSH (15:42)
--- NOTE | 2024-10-28 15:42 | IVDEFINITY ---
Prior to administration of IV Definity the patient was educated on the risks and benefits of the imaging enhancing agent including potential adverse side effects. The patient verbalized understanding. Allergies were verified. No exclusion criteria were identified and at least one of the following inclusion criteria were met: 1) physician request, 2) patient technically difficult to image (per the [place] [employer] guidelines of two or more segments not discernable within the apical view), or 3) questionable left ventricular function. ?
[2024-10-28 16:47] LABS: MRSA (PCR) DETECTED (NOT DETECTE)
[2024-10-28 18:09] LABS: Anion Gap 5 mmol/L (4-12); Blood Urea Nitrogen 16 mg/dL (9-20); Calcium 8.4 mg/dL (8.4-10.2); Carbon Dioxide 24 mmol/L (22-30); Chloride 95 mmol/L (98-107); Estimated CRCL calculation 221 ml/min; Estimated Glomerular Filt Rate > 60; Glucose 248 mg/dL (65-110); Potassium 4.3 mmol/L (3.4-5.0); Sodium 124 mmol/L (137-145)
--- NOTE | 2024-10-28 18:30 | PC.NURSE ---
Discussed current Na [address] Dent. Order received to d/c IVF, recheck BMP in am. Notified Dr. Rucker that CT scans were obtained, current Na level, and orders from Dr. Dent. Decision made to leave pt ICU overnight as scans have not been read and pt's HR is 130.
[2024-10-28] MEDS: ACETAMINOPHEN 325 MG TABLET 650 MG PO (18:53)
--- NOTE | 2024-10-28 22:46 | PM.IMPN ---
Progress Note: A&P Assessment and Plan (1) Non-insulin dependent diabetes mellitus: Status: Acute (2) Acidosis: Code(s): E87.20 - Acidosis, unspecified Status: Acute (3) Hyponatremia: Code(s): E87.1 - Hypo-osmolality and hyponatremia Status: Acute (4) Weakness: Code(s): R53.1 - Weakness Status: Acute (5) Sepsis: Qualifiers: Sepsis acute organ dysfunction status: without acute organ dysfunction Sepsis type: sepsis due to unspecified organism Qualified Code(s): A41.9 - Sepsis, unspecified organism Code(s): A41.9 - Sepsis, unspecified organism Status: Acute Plan he is a pleasan. he lives with his younger brother. reports for 4 weeks now he has felt ill with weakness and pain all over his body. denies diarrhea, cough, rash. presents with fever and acidosis with increased beta hydroxybutrate. he stopped taking his metformin months ago, states some insurance issues. 4 days prior to admission his pain was so bad he reports his younger brother crushed tylenol and oxycodone pills (4 of them) into water and added iqugmiut juice for flavor for him. when asked about cocaine found in his urine he reports his brother must have done it? he reports 2 hard liquor shots per week? it is quite unclear and his answer isn't clear continue cefepime and vancomycin. pending blood cultures. at this time we don't have a source of infection. he has no neck pain or stiffness. CT spine does not reveal osteo or diskitis. acidosis improved, DKA vs starvation ketosis or both. continue insuling regimen with sliding scale. hyponatremia is stable, likely dehydration or SIADH due to pain or both. nephrology managing currently. nancyx full code pt/ot for weakness Subjective Date/time seen: 10/28/24 22:46 Interval history: pt is very weak, can barely life his LEs. he reports being weak for 2-4 weeks now. has pain all over his body, achy whenever he tries to move. feels generally ill Review of Systems Review of Systems: All systems reviewed & are unremarkable except as noted in HPI and below (subjective) Exam Const: General: comfortable and no acute distress Other: obese, diaphoretic, fatigued. HENMT: Mouth: Yes moist mucous membranes Eyes: Sclera: sclerae normal Pupils: Equal, round and reactive pupils present Neck: Neck: supple Resp: Effort & Inspection: normal respiratory effort Auscultation: clear to auscultation bilaterally Cardio: Rate: regular rate Rhythm: regular rhythm Heart sounds: no murmurs GI: Inspection: non-distended GI Palp: Yes Soft to palpation Neuro: Other: generalized weakness Extrem: General: no edema Objective Data Vital Signs Vital Signs: Vital Signs - 24 hr 10/27/24 23:24 10/27/24 23:35 10/28/24 00:00 Temperature 102.4 F H 102.4 F H Pulse Rate Respiratory Rate Blood Pressure Pulse Oximetry 98 Oxygen Delivery Nasal Cannula Oxygen Flow Rate 3 10/28/24 00:00 10/28/24 00:00 10/28/24 00:35 Temperature 99.1 F Pulse Rate 126 H 126 H Respiratory Rate 33 H Blood Pressure 131/73 Pulse Oximetry 97 Oxygen Delivery Oxygen Flow Rate 10/28/24 02:00 10/28/24 02:00 10/28/24 04:00 Temperature 98.9 F Pulse Rate 111 H 111 H 102 H Respiratory Rate 35 H 31 H Blood Pressure 116/76 121/69 Pulse Oximetry 96 97 Oxygen Delivery Oxygen Flow Rate 10/28/24 04:00 10/28/24 04:00 10/28/24 06:00 Temperature Pulse Rate 103 H 102 H Respiratory Rate Blood Pressure Pulse Oximetry 98 Oxygen Delivery Nasal Cannula Oxygen Flow Rate 3 10/28/24 06:00 10/28/24 08:00 10/28/24 08:00 Temperature 97.7 F Pulse Rate 102 H 107 H Respiratory Rate 30 H 29 H Blood Pressure 144/88 H 135/85 Pulse Oximetry 97 90 Oxygen Delivery Room Air Oxygen Flow Rate 10/28/24 08:00 10/28/24 08:20 10/28/24 08:40 Temperature Pulse Rate 105 H Respiratory Rate Blood Pressure Pulse Oximetry 100 90 Oxygen Delivery Nasal Cannula Oxygen Flow Rate 2 10/28/24 10:00 10/28/24 10:00 10/28/24 12:00 Temperature Pulse Rate 106 H 106 H Respiratory Rate 25 H Blood Pressure 126/94 H Pulse Oximetry 100 Oxygen Delivery Room Air Oxygen Flow Rate 10/28/24 12:00 10/28/24 12:00 10/28/24 14:00 Temperature 97.6 F Pulse Rate 111 H 113 H 115 H Respiratory Rate 28 H Blood Pressure 144/87 H Pulse Oximetry 100 Oxygen Delivery Oxygen Flow Rate 10/28/24 14:00 10/28/24 16:00 10/28/24 16:00 Temperature Pulse Rate 115 H 114 H Respiratory Rate 36 H Blood Pressure 132/79 Pulse Oximetry 96 Oxygen Delivery Room Air Oxygen Flow Rate 10/28/24 16:00 10/28/24 18:00 10/28/24 18:00 Temperature 98.8 F Pulse Rate 116 H 127 H 127 H Respiratory Rate 28 H 35 H Blood Pressure 140/82 134/110 H Pulse Oximetry 98 98 Oxygen Delivery Oxygen Flow Rate 10/28/24 18:52 10/28/24 18:53 10/28/24 18:53 Temperature 101.6 F H 101.9 F H 101.9 F H Pulse Rate Respiratory Rate Blood Pressure Pulse Oximetry Oxygen Delivery Oxygen Flow Rate 10/28/24 19:53 10/28/24 20:00 10/28/24 20:00 Temperature 98.9 F 98.9 F Pulse Rate 130 H Respiratory Rate 30 H Blood Pressure 108/76 Pulse Oximetry 96 97 Oxygen Delivery Room Air Oxygen Flow Rate 10/28/24 20:00 10/28/24 20:27 10/28/24 22:00 Temperature Pulse Rate 126 H 125 H 118 H Respiratory Rate 20 Blood Pressure Pulse Oximetry 94 Oxygen Delivery Oxygen Flow Rate 10/28/24 22:00 Temperature Pulse Rate 118 H Respiratory Rate 16 Blood Pressure 144/80 H Pulse Oximetry 96 Oxygen Delivery Oxygen Flow Rate Intake/Output Intake/Output: Intake & Output 10/25/24 10/26/24 10/27/24 10/28/24 23:59 23:59 23:59 23:59 Intake Total 3880.0 5322.4 Output Total 300 3275 Balance 3580.0 2047.4 Meds/Results Medications: Active Medications Generic Name Dose Route Start Last Admin Trade Name Freq PRN Reason Stop Dose Admin Acetaminophen 650 mg 10/27/24 15:29 10/28/24 18:53 Acetaminophen 325 Mg Tablet PO 650 mg Q4H PRN Administration Mild Pain (1-3) or Fever Acetaminophen 650 mg 10/27/24 16:03 Acetaminophen 650 Mg Suppository RECTAL Q6H PRN Mild Pain (1-3) or Fever Dextrose 12.5 gm 09/16/25 15:32 Dextrose 50% 25 Gm/50 Ml Syringe IV PUSH PRN PRN Hypoglycemia Protocol Enoxaparin Sodium 40 mg 10/29/24 09:00 Enoxaparin 40 Mg/0.4 Ml Syringe SUB-Q DAILY RASHARD Glucagon 1 mg 10/27/24 15:32 Glucagon For Inj 1 Mg Vial IM PRN PRN Hypoglycemia Protocol Glucose 15 gm 10/27/24 15:32 Glucose Oral Gel 15 Gm Of Glucse In 37.5 Gm Tube PO PRN PRN Hypoglycemia Protocol Cefepime HCl 2 gm/ Sodium 50 mls @ 100 mls/hr 10/27/24 22:00 10/28/24 21:26 Chloride IVPB 100 mls/hr Q8H RASHARD Administration Dextrose 1,000 mls @ 100 mls/hr 10/27/24 15:32 Dextrose 5% 1,000 Ml IVPB PRN PRN Hypoglycemia Protocol Ibuprofen 800 mg in 200 mls @ 400 mls/hr 10/27/24 23:19 10/28/24 00:05 Caldolor 800 Mg/200 Ml IVPB Infused Q6H PRN Infusion Fever >101 Vancomycin HCl 1,500 mg in 500 mls @ 250 mls/hr 10/29/24 03:00 Vancomycin 1,500 Mg/Ns 500 Ml IVPB Q12H [facility] Insulin Aspart 2 - 4 units 10/28/24 21:00 10/28/24 20:22 Insulin Aspart (*Bkc) 100 Units/Ml SUB-Q 2 units HS [facility] Administration Protocol Insulin Aspart 4 - 8 units 10/28/24 09:50 10/28/24 17:19 Insulin Aspart (*Bkc) 100 Units/Ml SUB-Q 4 units TIDWM [facility] Administration Protocol Insulin Glargine 20 units 10/28/24 08:00 10/28/24 08:20 Insulin Glargine (*Bkc) 100 Units/Ml SUB-Q 20 units QAM [facility] Administration Labetalol HCl 20 mg 10/28/24 07:58 Labetalol Hcl Inj 100 Mg/20 Ml Vial IV PUSH Q4H PRN SBP > 160 and HR> 60 -1st choice Ondansetron HCl 4 mg 10/27/24 15:29 Ondansetron Inj 4 Mg/2 Ml Vial IV PUSH Q4H PRN Nausea Pantoprazole Sodium 40 mg 10/28/24 09:00 10/28/24 08:21 Pantoprazole Sodium Iv 40 Mg Vial IV PUSH 40 mg QAM RASHARD Administration Radiology Results: ITS Impressions Chest X-Ray 10/27/24 12:54 IMPRESSION: 1. No acute cardiopulmonary findings. Chest/Abdomen/Pelvis CT 10/27/24 14:37 IMPRESSION: 1. Wall thickening of the esophagus, which may be edema or esophagitis. 2. Ventral hernia containing nonobstructed small and large bowel. Cervical Spine CT 10/28/24 20:19 IMPRESSION: 1. Severe cervical spondylosis. Thoracic/Lumbar Spine CT 10/28/24 20:23 IMPRESSION: 1. Mild thoracic and lumbar spondylosis. Labs Labs: Laboratory Results - last 24 hr 10/27/24 10/27/24 10/28/24 22:58 23:03 00:16 WBC RBC Hgb Hct MCV MCH MCHC RDW Plt Count MPV Immature Gran % (Auto) Neut % (Auto) Lymph % (Auto) [place] % (Auto) Eos % (Auto) Baso % (Auto) Lymph # (Auto) [place] # (Auto) Eos # (Auto) Baso # (Auto) Abs Immat Gran (auto) Absolute Neuts (auto) Absolute Nucleated RBC Band Neutrophils % Nucleated RBC % Platelet Estimate Clumped Platelets Large Platelets Schistocytes Sodium Potassium Chloride Carbon Dioxide Anion Gap BUN Creatinine Estim Creat Clear Calc Estimated GFR Glucose POC Capillary Glucose 262 H 204 H Calcium Nasal MRSA (PCR) Urine Opiates Screen Negative Urine Methadone Screen Negative Ur Barbiturates Screen Negative Ur Phencyclidine Scrn Negative Ur Amphetamine Screen Negative U Benzodiazepines Scrn Negative Urine Cocaine Screen Positive A U Cannabinoids Screen Negative 10/28/24 10/28/24 10/28/24 00:51 01:00 02:07 WBC RBC Hgb Hct MCV MCH MCHC RDW Plt Count MPV Immature Gran % (Auto) Neut % (Auto) Lymph % (Auto) [place] % (Auto) Eos % (Auto) Baso % (Auto) Lymph # (Auto) [place] # (Auto) Eos # (Auto) Baso # (Auto) Abs Immat Gran (auto) Absolute Neuts (auto) Absolute Nucleated RBC Band Neutrophils % Nucleated RBC % Platelet Estimate Clumped Platelets Large Platelets Schistocytes Sodium 127 L Potassium 3.9 Chloride 100 Carbon Dioxide 20 L Anion Gap 7 BUN 24 H Creatinine 0.80 Estim Creat Clear Calc 159 Estimated GFR > 60 Glucose 182 H POC Capillary Glucose 186 H 144 H Calcium 8.8 Nasal MRSA (PCR) Urine Opiates Screen Urine Methadone Screen Ur Barbiturates Screen Ur Phencyclidine Scrn Ur Amphetamine Screen U Benzodiazepines Scrn Urine Cocaine Screen U Cannabinoids Screen 10/28/24 10/28/24 10/28/24 03:01 04:04 04:50 WBC RBC Hgb Hct MCV MCH MCHC RDW Plt Count MPV Immature Gran % (Auto) Neut % (Auto) Lymph % (Auto) [place] % (Auto) Eos % (Auto) Baso % (Auto) Lymph # (Auto) [place] # (Auto) Eos # (Auto) Baso # (Auto) Abs Immat Gran (auto) Absolute Neuts (auto) Absolute Nucleated RBC Band Neutrophils % Nucleated RBC % Platelet Estimate Clumped Platelets Large Platelets Schistocytes Sodium 127 L Potassium 4.2 Chloride 101 Carbon Dioxide 22 Anion Gap 4 BUN 27 H Creatinine 0.77 Estim Creat Clear Calc 165 Estimated GFR > 60 Glucose 223 H POC Capillary Glucose 194 H 217 H Calcium 8.6 Nasal MRSA (PCR) Urine Opiates Screen Urine Methadone Screen Ur Barbiturates Screen Ur Phencyclidine Scrn Ur Amphetamine Screen U Benzodiazepines Scrn Urine Cocaine Screen U Cannabinoids Screen 10/28/24 10/28/24 10/28/24 05:00 06:05 07:05 WBC 18.9 H RBC 3.97 L Hgb 11.5 L Hct 35.4 L MCV 89.2 MCH 29.0 MCHC 32.5 RDW 14.0 Plt Count 166 MPV 10.5 H Immature Gran % (Auto) 4.3 H Neut % (Auto) 82.5 H Lymph % (Auto) 6.5 L [place] % (Auto) 6.1 Eos % (Auto) 0.1 Baso % (Auto) 0.5 Lymph # (Auto) 1.23 [place] # (Auto) 1.2 H Eos # (Auto) 0.0 Baso # (Auto) 0.1 Abs Immat Gran (auto) 0.81 H Absolute Neuts (auto) 15.6 H Absolute Nucleated RBC 0.000 Band Neutrophils % Not Reportable Nucleated RBC % 0.0 Platelet Estimate Slightly decreased Clumped Platelets Present Large Platelets Present Schistocytes None seen Sodium 126 L Potassium 4.3 Chloride 100 Carbon Dioxide 21 L Anion Gap 5 BUN 26 H Creatinine 0.65 L Estim Creat Clear Calc 193 Estimated GFR > 60 Glucose 248 H POC Capillary Glucose 223 H 257 H Calcium 8.6 Nasal MRSA (PCR) Urine Opiates Screen Urine Methadone Screen Ur Barbiturates Screen Ur Phencyclidine Scrn Ur Amphetamine Screen U Benzodiazepines Scrn Urine Cocaine Screen U Cannabinoids Screen 10/28/24 10/28/24 10/28/24 07:07 08:17 09:21 WBC RBC Hgb Hct MCV MCH MCHC RDW Plt Count MPV Immature Gran % (Auto) Neut % (Auto) Lymph % (Auto) [place] % (Auto) Eos % (Auto) Baso % (Auto) Lymph # (Auto) [place] # (Auto) Eos # (Auto) Baso # (Auto) Abs Immat Gran (auto) Absolute Neuts (auto) Absolute Nucleated RBC Band Neutrophils % Nucleated RBC % Platelet Estimate Clumped Platelets Large Platelets Schistocytes Sodium Potassium Chloride Carbon Dioxide Anion Gap BUN Creatinine Estim Creat Clear Calc Estimated GFR Glucose POC Capillary Glucose 228 H 270 H 250 H Calcium Nasal MRSA (PCR) Urine Opiates Screen Urine Methadone Screen Ur Barbiturates Screen Ur Phencyclidine Scrn Ur Amphetamine Screen U Benzodiazepines Scrn Urine Cocaine Screen U Cannabinoids Screen 10/28/24 10/28/24 10/28/24 11:34 12:06 15:36 WBC RBC Hgb Hct MCV MCH MCHC RDW Plt Count MPV Immature Gran % (Auto) Neut % (Auto) Lymph % (Auto) [place] % (Auto) Eos % (Auto) Baso % (Auto) Lymph # (Auto) [place] # (Auto) Eos # (Auto) Baso # (Auto) Abs Immat Gran (auto) Absolute Neuts (auto) Absolute Nucleated RBC Band Neutrophils % Nucleated RBC % Platelet Estimate Clumped Platelets Large Platelets Schistocytes Sodium 128 L Potassium 4.0 Chloride 97 L Carbon Dioxide 28 Anion Gap 3 L BUN 20 Creatinine 0.61 L Estim Creat Clear Calc 205 Estimated GFR > 60 Glucose 227 H POC Capillary Glucose 232 H Calcium 8.7 Nasal MRSA (PCR) Detected A* Urine Opiates Screen Urine Methadone Screen Ur Barbiturates Screen Ur Phencyclidine Scrn Ur Amphetamine Screen U Benzodiazepines Scrn Urine Cocaine Screen U Cannabinoids Screen 10/28/24 10/28/24 10/28/24 17:15 17:50 20:22 WBC RBC Hgb Hct MCV MCH MCHC RDW Plt Count MPV Immature Gran % (Auto) Neut % (Auto) Lymph % (Auto) [place] % (Auto) Eos % (Auto) Baso % (Auto) Lymph # (Auto) [place] # (Auto) Eos # (Auto) Baso # (Auto) Abs Immat Gran (auto) Absolute Neuts (auto) Absolute Nucleated RBC Band Neutrophils % Nucleated RBC % Platelet Estimate Clumped Platelets Large Platelets Schistocytes Sodium 124 L Potassium 4.3 Chloride 95 L Carbon Dioxide 24 Anion Gap 5 BUN 16 Creatinine 0.56 L Estim Creat Clear Calc 221 Estimated GFR > 60 Glucose 248 H POC Capillary Glucose 233 H 279 H Calcium 8.4 Nasal MRSA (PCR) Urine Opiates Screen Urine Methadone Screen Ur Barbiturates Screen Ur Phencyclidine Scrn Ur Amphetamine Screen U Benzodiazepines Scrn Urine Cocaine Screen U Cannabinoids Screen
[2024-10-28 23:59] LABS: Anion Gap 6 mmol/L (4-12); Blood Urea Nitrogen 16 mg/dL (9-20); Calcium 8.5 mg/dL (8.4-10.2); Carbon Dioxide 22 mmol/L (22-30); Chloride 95 mmol/L (98-107); Estimated CRCL calculation 211 ml/min; Estimated Glomerular Filt Rate > 60; Glucose 285 mg/dL (65-110); Potassium 4.1 mmol/L (3.4-5.0); Sodium 123 mmol/L (137-145)
[2024-10-29] VITALS (14 sets, daily range): BP systolic 114–158; BP diastolic 65–93; PULSE 104–117; RESP 20–38; TEMP 36.6–37.2; O2SAT 90–100
[2024-10-29] MEDS: VANCOMYCIN 1,500 MG/NS 500 ML 1,500 MG/500 ML BAG 250 MG IVPB ×2 (03:00→15:14)
[2024-10-29 03:55] LABS: Hematocrit 34.5 % (42.0-52.0); Hemoglobin 11.0 g/dL (14.0-18.0); Mean Corpuscular HGB Conc 31.9 g/dl (32-36); Mean Corpuscular Hemoglobin 28.5 pg (26-34); Mean Corpuscular Volume 89.4 fl (80-100); Platelet Count Result 187 k/mm3 (150-375); Red Blood Count 3.86 M/mm3 (4.6-6.20); White Blood Count 15.4 K/mm3 (4.5-10.0)
[2024-10-29 04:21] LABS: Alanine Aminotransferase 33 U/L (6-50); Albumin Level 2.4 g/dL (3.5-5.1); Alkaline Phosphatase 208 U/L (38-126); Anion Gap 7 mmol/L (4-12); Aspartate Amino Transferase 71 U/L (17-59); Bilirubin,Total 1.1 mg/dL (0.2-1.3); Blood Urea Nitrogen 15 mg/dL (9-20); Calcium 8.4 mg/dL (8.4-10.2); Carbon Dioxide 22 mmol/L (22-30); Chloride 94 mmol/L (98-107); Estimated CRCL calculation 225 ml/min; Estimated Glomerular Filt Rate > 60; Glucose 284 mg/dL (65-110); Magnesium 2.0 mg/dL (1.6-2.3); Potassium 4.2 mmol/L (3.4-5.0); Sodium 123 mmol/L (137-145); Total Protein 6.3 g/dL (6.3-8.2)
[2024-10-29 04:52] LABS: Thyroid Stimulating Hormone 1.150 uIU/mL (0.465-4.680)
[2024-10-29] MEDS: ENOXAPARIN 40 MG/0.4 ML SYRINGE SUB-Q (08:03)
[2024-10-29] MEDS: PANTOPRAZOLE SODIUM IV 40 MG VIAL IV PUSH (08:03)
[2024-10-29] MEDS: SODIUM CHLORIDE 1 GM TABLET PO ×2 (08:04→16:58)
[2024-10-29] MEDS: INSULIN ASPART (*BKC) 100 UNITS/ML SUB-Q ×6 (08:04→20:52)
[2024-10-29] MEDS: ACETAMINOPHEN 325 MG TABLET 650 MG PO ×2 (08:04→13:54)
[2024-10-29] MEDS: CEFEPIME 2 GM in SODIUM CHLORIDE 0.9% IV 50 ML 100 ML IVPB ×3 (08:05→21:00)
[2024-10-29] MEDS: INSULIN GLARGINE (*BKC) 100 UNITS/ML 20 UNITS SUB-Q (08:05)
--- NOTE | 2024-10-29 08:10 | WPDINTPN ---
Progress Note: A&P Assessment and Plan (1) DKA (diabetic ketoacidosis): Code(s): E11.10 - Type 2 diabetes mellitus with ketoacidosis without coma Status: Acute (2) Diabetes: Code(s): E11.9 - Type 2 diabetes mellitus without complications Status: Acute (3) Morbid obesity with BMI of 45.0-49.9, adult: Code(s): E66.01 - Morbid (severe) obesity due to excess calories; Z68.42 - Body mass index [BMI] 45.0-49.9, adult Status: Acute (4) Hyponatremia: Code(s): E87.1 - Hypo-osmolality and hyponatremia Status: Acute (5) Sepsis: Qualifiers: Sepsis acute organ dysfunction status: without acute organ dysfunction Sepsis type: sepsis due to unspecified organism Qualified Code(s): A41.9 - Sepsis, unspecified organism Code(s): A41.9 - Sepsis, unspecified organism Status: Acute (6) Metabolic acidosis: Code(s): E87.20 - Acidosis, unspecified Status: Acute (7) Hyperkalemia: Code(s): E87.5 - Hyperkalemia Status: Acute (8) UTI (urinary tract infection): Code(s): N39.0 - Urinary tract infection, site not specified Status: Acute (9) Bacteremia: Code(s): R78.81 - Bacteremia Status: Acute Plan Patient presented with this picture of tachycardia tachypnea dehydration fever consistent with SIRS vs sepsis. He had mildly elevated lactic acidosis but elevated procalcitonin and WBC. He also had labs consistent with DKA. He had hyponatremia although not as severe after correction for elevated blood glucose. His imaging does not suggest any focus of infection except abnormal UA. Patient also complained of dysuria during history which would fit with UTI. Patient was started on DKA protocol. Symptoms have improved and his mental status has improved along with acidosis. I will transition him to subcutaneous insulin with Lantus and with meal insulin Patient started on diabetic diet Continue Lantus sliding scale and I will add with meal insulin of 5 units subQ t.i.d. Consult for dietitian and family life educator is pending Patient was started on cefepime which will be continued. His blood cultures are growing Gram-positive cocci. I have added vancomycin TTE was done and does not show any evidence of endocarditis CT of cervical and thoracic lumbar spine was also done which only showed severe cervical spondylosis and mild thoraco lumbar His acidosis improving and renal function is stable His tachycardia has improved His UDS did test positive for cocaine which may have contributed to some of the symptoms although patient denied drug use to me For hypertension I will start him on lisinopril With regard to hyponatremia patient sodium was low but after correction for glucose it was 126 and has improved to 130 initially but now again decreased to 123. Nephrology is following and managing. He is off of fluids and now on sodium chloride tablet Lovenox for DVT prophylaxis Incentive spirometry Consult PT OT today Transfer out of ICU Subjective Date/time seen: 10/29/24 He states that Overall feels better but still has pain in his joints. He complains of pain in his knees hips and shoulders specially at movement. He states he feels weak and unable to get out of bed because of pain. He denies any chest pain shortness a breath fever cough nausea vomiting abdominal pain diarrhea constipation. No chills or rigors. No dizziness lightheadedness. No paresthesia. All other systems were reviewed and were negative. Blood pressure is elevated. He is on room air. Afebrile overnight. Tolerating PO Diet Review of Systems Review of Systems: All systems reviewed & are unremarkable except as noted in HPI and below (HPI) Exam Narrative: General: Pt is alert awake and in NAD Lungs/Chest: Trachea central Clear BS B/L, No crackles or wheezing. Cardiac: RRR. Normal S1 S2. No murmurs Circulation: Pedal pulses are intact and symmetrical. Abdomen: Normal bowel sounds. Obese. Soft. NT. ND. Extremities: No clubbing, cyanosis or edema. Warm : Nick in place Neurologic: Follows commands. Moves all 4 extremities, he appears generalized weak but his strength is symmetric in all 4 extremities he is unable to lift both of his legs on the bed and states that he hurts in his hips and knees when he tries to do it. No facial asymmetry. Cranial nerves2- 12 intact, extraocular muscles intact, PERRL AO x3, sensation to touch intact Skin: No Rash MSK: no knee or ankle swelling or redness, no swelling or redness on either of elbows or shoulders Objective Data Vital Signs Vital Signs: Vital Signs - 24 hr 10/28/24 08:20 10/28/24 08:40 10/28/24 10:00 Temperature Pulse Rate 106 H Respiratory Rate Blood Pressure Pulse Oximetry 100 90 Oxygen Delivery Nasal Cannula Oxygen Flow Rate 2 10/28/24 10:00 10/28/24 12:00 10/28/24 12:00 Temperature 36.4 C Pulse Rate 106 H 111 H Respiratory Rate 25 H 28 H Blood Pressure 126/94 H 144/87 H Pulse Oximetry 100 100 Oxygen Delivery Room Air Oxygen Flow Rate 10/28/24 12:00 10/28/24 14:00 10/28/24 14:00 Temperature Pulse Rate 113 H 115 H 115 H Respiratory Rate 36 H Blood Pressure 132/79 Pulse Oximetry 96 Oxygen Delivery Oxygen Flow Rate 10/28/24 16:00 10/28/24 16:00 10/28/24 16:00 Temperature 37.1 C Pulse Rate 114 H 116 H Respiratory Rate 28 H Blood Pressure 140/82 Pulse Oximetry 98 Oxygen Delivery Room Air Oxygen Flow Rate 10/28/24 18:00 10/28/24 18:00 10/28/24 18:52 Temperature 38.7 C H Pulse Rate 127 H 127 H Respiratory Rate 35 H Blood Pressure 134/110 H Pulse Oximetry 98 Oxygen Delivery Oxygen Flow Rate 10/28/24 18:53 10/28/24 18:53 10/28/24 19:53 Temperature 38.8 C H 38.8 C H 37.2 C Pulse Rate Respiratory Rate Blood Pressure Pulse Oximetry Oxygen Delivery Oxygen Flow Rate 10/28/24 20:00 10/28/24 20:00 10/28/24 20:00 Temperature 37.2 C Pulse Rate 130 H 126 H Respiratory Rate 30 H Blood Pressure 108/76 Pulse Oximetry 96 97 Oxygen Delivery Room Air Oxygen Flow Rate 10/28/24 20:27 10/28/24 22:00 10/28/24 22:00 Temperature Pulse Rate 125 H 118 H 118 H Respiratory Rate 20 16 Blood Pressure 144/80 H Pulse Oximetry 94 96 Oxygen Delivery Oxygen Flow Rate 10/29/24 00:00 10/29/24 00:00 10/29/24 00:00 Temperature 36.7 C Pulse Rate 115 H 115 H Respiratory Rate 35 H Blood Pressure 152/80 H Pulse Oximetry 90 90 Oxygen Delivery Room Air Oxygen Flow Rate 10/29/24 02:00 10/29/24 02:00 10/29/24 04:00 Temperature 37.1 C Pulse Rate 114 H 114 H 113 H Respiratory Rate 37 H 32 H Blood Pressure 155/93 H 152/89 H Pulse Oximetry 95 94 Oxygen Delivery Oxygen Flow Rate 10/29/24 04:00 10/29/24 04:00 10/29/24 06:00 Temperature Pulse Rate 112 H 111 H Respiratory Rate Blood Pressure Pulse Oximetry 94 Oxygen Delivery Room Air Oxygen Flow Rate 10/29/24 06:00 10/29/24 07:56 Temperature 36.6 C 37.1 C Pulse Rate 111 H 110 H Respiratory Rate 38 H 25 H Blood Pressure 148/91 H 158/90 H Pulse Oximetry 97 100 Oxygen Delivery Oxygen Flow Rate Intake/Output Intake/Output: Intake & Output 10/26/24 10/27/24 10/28/24 10/29/24 23:59 23:59 23:59 23:59 Intake Total 3880.0 5372.4 1890 Output Total 300 3275 950 Balance 3580.0 2097.4 940 Meds/Results Medications: Active Medications Generic Name Dose Route Start Last Admin Trade Name Freq PRN Reason Stop Dose Admin Acetaminophen 650 mg 10/27/24 15:29 10/28/24 18:53 Acetaminophen 325 Mg Tablet PO 650 mg Q4H PRN Administration Mild Pain (1-3) or Fever Acetaminophen 650 mg 10/27/24 16:03 Acetaminophen 650 Mg Suppository RECTAL Q6H PRN Mild Pain (1-3) or Fever Dextrose 12.5 gm 10/27/24 15:32 Dextrose 50% 25 Gm/50 Ml Syringe IV PUSH PRN PRN Hypoglycemia Protocol Enoxaparin Sodium 40 mg 10/29/24 09:00 Enoxaparin 40 Mg/0.4 Ml Syringe SUB-Q DAILY RASHARD Glucagon 1 mg 10/27/24 15:32 Glucagon For Inj 1 Mg Vial IM PRN PRN Hypoglycemia Protocol Glucose 15 gm 10/27/24 15:32 Glucose Oral Gel 15 Gm Of Glucse In 37.5 Gm Tube PO PRN PRN Hypoglycemia Protocol Cefepime HCl 2 gm/ Sodium 50 mls @ 100 mls/hr 10/27/24 22:00 10/28/24 21:56 Chloride IVPB Infused Q8H RASHARD Infusion Dextrose 1,000 mls @ 100 mls/hr 10/27/24 15:32 Dextrose 5% 1,000 Ml IVPB PRN PRN Hypoglycemia Protocol Ibuprofen 800 mg in 200 mls @ 400 mls/hr 10/27/24 23:19 10/28/24 00:05 Caldolor 800 Mg/200 Ml IVPB Infused Q6H PRN Infusion Fever >101 Vancomycin HCl 1,500 mg in 500 mls @ 250 mls/hr 10/29/24 03:00 10/29/24 03:00 Vancomycin 1,500 Mg/Ns 500 Ml IVPB 250 mls/hr Q12H RASHARD Administration Insulin Aspart 2 - 4 units 10/28/24 21:00 10/28/24 20:22 Insulin Aspart (*Bkc) 100 Units/Ml SUB-Q 2 units HS RASHARD Administration Protocol Insulin Aspart 4 - 8 units 10/28/24 09:50 10/28/24 17:19 Insulin Aspart (*Bkc) 100 Units/Ml SUB-Q 4 units TIDWM RASHARD Administration Protocol Insulin Aspart 5 units 10/29/24 12:00 Insulin Aspart (*Bkc) 100 Units/Ml SUB-Q TIDWM RASHARD Insulin Glargine 20 units 10/28/24 08:00 10/28/24 08:20 Insulin Glargine (*Bkc) 100 Units/Ml SUB-Q 20 units QAM RASHARD Administration Labetalol HCl 20 mg 10/28/24 07:58 Labetalol Hcl Inj 100 Mg/20 Ml Vial IV PUSH Q4H PRN SBP > 160 and HR> 60 -1st choice Ondansetron HCl 4 mg 10/27/24 15:29 Ondansetron Inj 4 Mg/2 Ml Vial IV PUSH Q4H PRN Nausea Pantoprazole Sodium 40 mg 10/28/24 09:00 10/28/24 08:21 Pantoprazole Sodium Iv 40 Mg Vial IV PUSH 40 mg QAM [facility] Administration Sodium Chloride 1 gm 10/29/24 09:00 Sodium Chloride 1 Gm Tablet PO BID [facility] Radiology Results: ITS Impressions Chest X-Ray 10/27/24 12:54 IMPRESSION: 1. No acute cardiopulmonary findings. Chest/Abdomen/Pelvis CT 10/27/24 14:37 IMPRESSION: 1. Wall thickening of the esophagus, which may be edema or esophagitis. 2. Ventral hernia containing nonobstructed small and large bowel. Cervical Spine CT 09/17/25 20:19 IMPRESSION: 1. Severe cervical spondylosis. Thoracic/Lumbar Spine CT 10/28/24 20:23 IMPRESSION: 1. Mild thoracic and lumbar spondylosis. Labs Labs: Laboratory Results - last 24 hr 10/28/24 10/28/24 10/28/24 08:17 09:21 11:34 WBC RBC Hgb Hct MCV MCH MCHC RDW Plt Count MPV Sodium Potassium Chloride Carbon Dioxide Anion Gap BUN Creatinine Estim Creat Clear Calc Estimated GFR Glucose POC Capillary Glucose 270 H 250 H 232 H Calcium Phosphorus Magnesium Total Bilirubin AST ALT Alkaline Phosphatase Total Protein Albumin TSH Random Cortisol Nasal MRSA (PCR) 10/28/24 10/28/24 10/28/24 12:06 15:36 17:15 WBC RBC Hgb Hct MCV MCH MCHC RDW Plt Count MPV Sodium 128 L Potassium 4.0 Chloride 97 L Carbon Dioxide 28 Anion Gap 3 L BUN 20 Creatinine 0.61 L Estim Creat Clear Calc 205 Estimated GFR > 60 Glucose 227 H POC Capillary Glucose 233 H Calcium 8.7 Phosphorus Magnesium Total Bilirubin AST ALT Alkaline Phosphatase Total Protein Albumin TSH Random Cortisol Nasal MRSA (PCR) Detected A* 10/28/24 10/28/24 10/28/24 17:50 20:22 23:43 WBC RBC Hgb Hct MCV MCH MCHC RDW Plt Count MPV Sodium 124 L 123 L Potassium 4.3 4.1 Chloride 95 L 95 L Carbon Dioxide 24 22 Anion Gap 5 6 BUN 16 16 Creatinine 0.56 L 0.59 L Estim Creat Clear Calc 221 211 Estimated GFR > 60 > 60 Glucose 248 H 285 H POC Capillary Glucose 279 H Calcium 8.4 8.5 Phosphorus Magnesium Total Bilirubin AST ALT Alkaline Phosphatase Total Protein Albumin TSH Random Cortisol Nasal MRSA (PCR) 10/29/24 10/29/24 03:50 07:49 WBC 15.4 H RBC 3.86 L Hgb 11.0 L Hct 34.5 L MCV 89.4 MCH 28.5 MCHC 31.9 L RDW 14.2 Plt Count 187 MPV 11.0 H Sodium 123 L Potassium 4.2 Chloride 94 L Carbon Dioxide 22 Anion Gap 7 BUN 15 Creatinine 0.55 L Estim Creat Clear Calc 225 Estimated GFR > 60 Glucose 284 H POC Capillary Glucose 277 H Calcium 8.4 Phosphorus 3.3 Magnesium 2.0 Total Bilirubin 1.1 AST 71 H ALT 33 Alkaline Phosphatase 208 H Total Protein 6.3 Albumin 2.4 L TSH 1.150 Random Cortisol 25.00 Nasal MRSA (PCR) Quality VTE Prophylaxis VTE prophylaxis: pharmacologic ordered
--- NOTE | 2024-10-29 11:01 | PCFNICU ---
ICU Rounding Note: Pt current nutrition is DBCC. Last recorded weight is 156.5 kg, up from 155.3 kg on admit. Bowel Motility: No BM reported. Labs Reviewed: Glu 284, Cr 0.55, Alb 2.4, Na 123 Meds Noted:Lantus, NovoLog, Protonix Skin: WNL Additional Notes: Patient is tolerating DBCC diet with adequate intake. Nutritional Teaching 10/28 and patient instruction attached for additional diet information. Following daily in ICU rounds.
[2024-10-29 12:32] LABS: Sodium 124 mmol/L (137-145)
--- NOTE | 2024-10-29 13:22 | P.PNNP_ITS ---
Progress Note: A&P Assessment and Plan (1) Hyponatremia: Code(s): E87.1 - Hypo-osmolality and hyponatremia Status: Acute Assessment and Plan: * fluctuating * acute versus acute on chronic versus chronic?? * last labs available are from July 2023 -- sodium 136mmol/L at that time * suspect hyperglycemia more to blame with regard to hyponatremia * corrected sodium on admission (with glucose of 348) is closer to 126mmol/L * most recent sodium of 128mmol/L corrects to 131mmol/L * hence. suspicion is he probably has chronic hyponatremia related to hyperglycemia/poor controlled diabetes * however, likely had a contributing component of volume depletion/dehdyration on admission (prerenal with urine sodium < 5) * narcotics contributing?? -- urine drug screen + for cocaine * evaluation to date noted: * normal TSH * cortisol okay * SPEP/UPEP pending * serum/urine osmo pending * follow the trend of sodiums (in relation to blood sugars) (2) Bacteremia: Code(s): R78.81 - Bacteremia Status: Acute Assessment and Plan: * presumed etiology of sepsis/SIRS symptoms/findings (tachycardia, tachypnea, leukocytosis, lactic acidosis and elevated procalcitonin) on admission * blood culture results noted: * 10/27 - Gram positive cocci * source of infection? * follow repeat cultures * on antibiotics (3) DKA (diabetic ketoacidosis): Code(s): E11.10 - Type 2 diabetes mellitus with ketoacidosis without coma Status: Acute Assessment and Plan: * resolved * transitioned to Lantus and SSI * see #6 (4) Hypertension: Code(s): I10 - Essential (primary) hypertension Status: Acute Assessment and Plan: * BP rising * started on lisinopril * follow trend of hemodynamics (5) Weakness: Code(s): R53.1 - Weakness Status: Acute Assessment and Plan: * due to acute illness, deconditioning, and poor ambulation prior to admission * imaging noted to date (CT cervical/thoracic/lumbar spine): * severe cervical spondylosis * mild thoracic and lumbar spondylosis * no evidence of infection * ongoing PT/OT as tolerated (6) Diabetes: Code(s): E11.9 - Type 2 diabetes mellitus without complications Status: Acute Assessment and Plan: * poor control at baseline * HgbA1c 10.8 * glycemic control per medical office technician/hospitalist Will continue to follow. L Subjective Date/time seen: 10/29/24 13:22 Interval history: Follow-up for hyponatremia. Sodium continues to fluctuate (although corrected sodium levels are better when hyperglycemia taken into account); still on complaining on pain in his joints and lower extremities making it difficult for him to get out of bed; blood pressure running higher today and started on antihypertensive medication (lisinopril). Exam 2 Narrative: General: large WD/WN male in NAD Heart: normal S1 and S2; no rub Lungs: clear to auscultation Abdomen: soft, nontender, nondistended, positive bowel sounds Extremities: no cyanosis or clubbing; no edema Skin: warm and dry Objective Data Vital Signs Vital Signs: Vital Signs Temp Pulse Resp BP Pulse Ox O2 Del Method 10/29/24 12:00 111 H 10/29/24 11:56 Room Air 10/29/24 11:55 98.3 F 117 H 20 136/90 97 10/29/24 11:11 Room Air 10/29/24 10:00 110 H 10/29/24 08:03 Room Air 10/29/24 08:00 110 H 10/29/24 08:00 Room Air 10/29/24 07:56 98.7 F 110 H 25 H 158/90 H 100 10/29/24 06:00 97.9 F 111 H 38 H 148/91 H 97 10/29/24 06:00 111 H 10/29/24 04:00 112 H 10/29/24 04:00 94 Room Air 10/29/24 04:00 98.7 F 113 H 32 H 152/89 H 94 10/29/24 02:00 114 H 37 H 155/93 H 95 10/29/24 02:00 114 H 10/29/24 00:00 98.1 F 115 H 35 H 152/80 H 90 10/29/24 00:00 115 H 10/29/24 00:00 90 Room Air 10/28/24 22:00 118 H 16 144/80 H 96 10/28/24 22:00 118 H 10/28/24 20:27 125 H 20 94 10/28/24 20:00 126 H 10/28/24 20:00 97 Room Air 10/28/24 20:00 98.9 F 130 H 30 H 108/76 96 10/28/24 19:53 98.9 F 10/28/24 18:53 101.9 F H 10/28/24 18:53 101.9 F H 10/28/24 18:52 101.6 F H 10/28/24 18:00 127 H 35 H 134/110 H 98 10/28/24 18:00 127 H Intake/Output Intake/Output: Intake & Output 10/26/24 10/27/24 10/28/24 10/29/24 23:59 23:59 23:59 23:59 Intake Total 3880.0 5372.4 4640 Output Total 300 3275 1300 Balance 3580.0 2097.4 3340 Meds/Results Medications: Active Medications Generic Name Dose Route Start Last Admin Trade Name Freq PRN Reason Stop Dose Admin Acetaminophen 650 mg 10/27/24 15:29 10/29/24 13:54 Acetaminophen 325 Mg Tablet PO 650 mg Q4H PRN Administration Mild Pain (1-3) or Fever Acetaminophen 650 mg 10/27/24 16:03 Acetaminophen 650 Mg Suppository RECTAL Q6H PRN Mild Pain (1-3) or Fever Dextrose 12.5 gm 10/27/24 15:32 Dextrose 50% 25 Gm/50 Ml Syringe IV PUSH PRN PRN Hypoglycemia Protocol Enoxaparin Sodium 40 mg 10/29/24 09:00 10/29/24 08:03 Enoxaparin 40 Mg/0.4 Ml Syringe SUB-Q 40 mg DAILY RASHARD Administration Glucagon 1 mg 10/27/24 15:32 Glucagon For Inj 1 Mg Vial IM PRN PRN Hypoglycemia Protocol Glucose 15 gm 10/27/24 15:32 Glucose Oral Gel 15 Gm Of Glucse In 37.5 Gm Tube PO PRN PRN Hypoglycemia Protocol Cefepime HCl 2 gm/ Sodium 50 mls @ 100 mls/hr 10/27/24 22:00 10/29/24 15:22 Chloride IVPB Infused Q8H RASHARD Infusion Dextrose 1,000 mls @ 100 mls/hr 10/27/24 15:32 Dextrose 5% 1,000 Ml IVPB PRN PRN Hypoglycemia Protocol Ibuprofen 800 mg in 200 mls @ 400 mls/hr 10/27/24 23:19 10/28/24 00:05 Caldolor 800 Mg/200 Ml IVPB Infused Q6H PRN Infusion Fever >101 Vancomycin HCl 1,500 mg in 500 mls @ 250 mls/hr 10/29/24 03:00 10/29/24 15:14 Vancomycin 1,500 Mg/Ns 500 Ml IVPB 250 mls/hr Q12H RASHARD Administration Insulin Aspart 2 - 4 units 10/28/24 21:00 10/28/24 20:22 Insulin Aspart (*Bkc) 100 Units/Ml SUB-Q 2 units HS RASHARD Administration Protocol Insulin Aspart 4 - 8 units 10/28/24 09:50 10/29/24 16:59 Insulin Aspart (*Bkc) 100 Units/Ml SUB-Q 6 units TIDWM RASHARD Administration Protocol Insulin Aspart 5 units 10/29/24 12:00 10/29/24 16:59 Insulin Aspart (*Bkc) 100 Units/Ml SUB-Q 5 units TIDWM RASHARD Administration Insulin Glargine 20 units 10/28/24 08:00 10/29/24 08:05 Insulin Glargine (*Bkc) 100 Units/Ml SUB-Q 20 units QAM RASHARD Administration Labetalol HCl 20 mg 10/28/24 07:58 Labetalol Hcl Inj 100 Mg/20 Ml Vial IV PUSH Q4H PRN SBP > 160 and HR> 60 -1st choice Lisinopril 20 mg 10/29/24 09:00 10/29/24 09:52 Lisinopril 20 Mg Tablet PO 20 mg QAM RASHARD Administration Ondansetron HCl 4 mg 10/27/24 15:29 Ondansetron Inj 4 Mg/2 Ml Vial IV PUSH Q4H PRN Nausea Pantoprazole Sodium 40 mg 10/28/24 09:00 10/29/24 08:03 Pantoprazole Sodium Iv 40 Mg Vial IV PUSH 40 mg QAM [facility] Administration Sodium Chloride 1 gm 10/29/24 09:00 10/29/24 16:58 Sodium Chloride 1 Gm Tablet PO 1 gm BID RASHARD Administration Radiology Results: ITS Impressions Chest X-Ray 10/27/24 12:54 IMPRESSION: 1. No acute cardiopulmonary findings. Chest/Abdomen/Pelvis CT 10/27/24 14:37 IMPRESSION: 1. Wall thickening of the esophagus, which may be edema or esophagitis. 2. Ventral hernia containing nonobstructed small and large bowel. Cervical Spine CT 10/28/24 20:19 IMPRESSION: 1. Severe cervical spondylosis. Thoracic/Lumbar Spine CT 10/28/24 20:23 IMPRESSION: 1. Mild thoracic and lumbar spondylosis. Labs Labs: Laboratory Tests 10/29/24 03:50 10/29/24 12:11 10/29/24 03:50 Sodium 123 L Potassium 4.2 Chloride 94 L Carbon Dioxide 22 Anion Gap 7 BUN 15 Creatinine 0.55 L Estim Creat Clear Calc 225 Estimated GFR > 60 Glucose 284 H Calcium 8.4 Phosphorus 3.3 Magnesium 2.0 Total Bilirubin 1.1 AST 71 H ALT 33 Alkaline Phosphatase 208 H Total Protein 6.3 Albumin 2.4 L Microbiology 10/27/24 12:19 Blood Blood Culture - Preliminary 10/27/24 12:06 Blood Blood Culture - Preliminary
[2024-10-29 18:49] LABS: Sodium 120 mmol/L (137-145)
--- NOTE | 2024-10-29 21:49 | P.PNIM_ITS ---
Progress Note: A&P Assessment and Plan (1) Non-insulin dependent diabetes mellitus: Status: Acute (2) Acidosis: Code(s): E87.20 - Acidosis, unspecified Status: Acute (3) Hyponatremia: Code(s): E87.1 - Hypo-osmolality and hyponatremia Status: Acute (4) Weakness: Code(s): R53.1 - Weakness Status: Acute (5) Sepsis: Qualifiers: Sepsis acute organ dysfunction status: without acute organ dysfunction Sepsis type: sepsis due to unspecified organism Qualified Code(s): A41.9 - Sepsis, unspecified organism Code(s): A41.9 - Sepsis, unspecified organism Status: Acute Plan he lives with his younger brother. reports for 4 weeks now he has felt ill with weakness and pain all over his body. denies diarrhea, cough, rash. presents with fever and acidosis with increased beta hydroxybutrate. he stopped taking his metformin months ago, states some insurance issues. 4 days prior to admission his pain was so bad he reports his younger brother crushed tylenol and oxycodone pills (4 of them) into water and added [place] juice for flavor for him. when asked about cocaine found in his urine he reports his brother must have done it? he reports 2 hard liquor shots per week? it is quite unclear and his answer isn't clear continue cefepime and vancomycin. pending blood cultures. at this time we don't have a source of infection. he has no neck pain or stiffness. CT spine does not reveal osteo or diskitis. acidosis improved, DKA vs starvation ketosis or both. continue insuling regimen with sliding scale. hyponatremia is stable, likely dehydration or SIADH due to pain or both. nephrology managing currently. ----- persistent hyponatremia, nephrology to manage. fluids discontinued. has LE edema R>L. check venous dopplers. leukocytosis improving, sinus tachycardia but hemodynamically stable otherwise. blood cultures in 2 bottles growing gram positive cocci. continue cefepime and vancomycin. tailor abx deescalation when sensitives return. may need NEHEMIAS based on organism and other factors. reviewed blood sugars. elevated/uncontrolled. 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 low threshold to increase regimen as long as he is eating. lovenox full code pt/ot for weakness, improving, but still guarded, requiring multidisciplinary care Time Spent With Patient Time with patient: Greater than 35 minutes Subjective Date/time seen: 10/29/24 21:49 Interval history: pt feels markedly improved. less ill and diaphoretic. still appears week. he has pivoted to the chair with therapist with serguerdaady. pt reports pain is improved in b/l LEs. denies SOB, cough, fever, chest pain, abdominal pain, diarrhea. tolerating diet. Review of Systems Review of Systems: All systems reviewed & are unremarkable except as noted in HPI and below (subjective) Exam Const: General: comfortable and no acute distress Other: obese, appears generally weak. HENMT: Mouth: Yes moist mucous membranes Eyes: Sclera: sclerae normal Pupils: Equal, round and reactive pupils present Neck: Neck: supple Resp: Effort & Inspection: normal respiratory effort Auscultation: clear to auscultation bilaterally Cardio: Rate: regular rate Rhythm: regular rhythm Heart sounds: no murmurs GI: Inspection: non-distended GI Palp: Yes Soft to palpation Neuro: Other: generalized weakness, symmetric although Extrem: Other: trace pitting edema LLE, 1-2+ RLE edema Psych: Mental Status: mental status grossly normal Objective Data Vital Signs Vital Signs: Vital Signs - 24 hr 10/28/24 22:00 10/28/24 22:00 10/29/24 00:00 Temperature Pulse Rate 118 H 118 H Respiratory Rate 16 Blood Pressure 144/80 H Pulse Oximetry 96 90 Oxygen Delivery Room Air 10/29/24 00:00 10/29/24 00:00 10/29/24 02:00 Temperature 98.1 F Pulse Rate 115 H 115 H 114 H Respiratory Rate 35 H Blood Pressure 152/80 H Pulse Oximetry 90 Oxygen Delivery 10/29/24 02:00 10/29/24 04:00 10/29/24 04:00 Temperature 98.7 F Pulse Rate 114 H 113 H Respiratory Rate 37 H 32 H Blood Pressure 155/93 H 152/89 H Pulse Oximetry 95 94 94 Oxygen Delivery Room Air 10/29/24 04:00 10/29/24 06:00 10/29/24 06:00 Temperature 97.9 F Pulse Rate 112 H 111 H 111 H Respiratory Rate 38 H Blood Pressure 148/91 H Pulse Oximetry 97 Oxygen Delivery 10/29/24 07:56 10/29/24 08:00 10/29/24 08:00 Temperature 98.7 F Pulse Rate 110 H 110 H Respiratory Rate 25 H Blood Pressure 158/90 H Pulse Oximetry 100 Oxygen Delivery Room Air 10/29/24 08:03 10/29/24 10:00 10/29/24 11:11 Temperature Pulse Rate 110 H Respiratory Rate Blood Pressure Pulse Oximetry Oxygen Delivery Room Air Room Air 10/29/24 11:55 10/29/24 11:56 10/29/24 12:00 Temperature 98.3 F Pulse Rate 117 H 111 H Respiratory Rate 20 Blood Pressure 136/90 Pulse Oximetry 97 Oxygen Delivery Room Air 10/29/24 14:00 10/29/24 16:00 10/29/24 16:00 Temperature Pulse Rate 114 H 113 H Respiratory Rate Blood Pressure Pulse Oximetry Oxygen Delivery Room Air 10/29/24 16:00 10/29/24 18:00 10/29/24 20:00 Temperature 98.9 F Pulse Rate 112 H 104 H Respiratory Rate 24 H Blood Pressure 122/65 Pulse Oximetry 95 98 Oxygen Delivery Room Air 10/29/24 20:00 10/29/24 20:00 Temperature 98.5 F Pulse Rate 105 H 107 H Respiratory Rate 21 H Blood Pressure 114/91 H Pulse Oximetry 95 Oxygen Delivery Intake/Output Intake/Output: Intake & Output 10/26/24 10/27/24 10/28/24 10/29/24 23:59 23:59 23:59 23:59 Intake Total 3880.0 5372.4 4640 Output Total 300 3275 1300 Balance 3580.0 2097.4 3340 Meds/Results Medications: Active Medications Generic Name Dose Route Start Last Admin Trade Name Freq PRN Reason Stop Dose Admin Acetaminophen 650 mg 10/27/24 15:29 10/29/24 13:54 Acetaminophen 325 Mg Tablet PO 650 mg Q4H PRN Administration Mild Pain (1-3) or Fever Acetaminophen 650 mg 10/27/24 16:03 Acetaminophen 650 Mg Suppository RECTAL Q6H PRN Mild Pain (1-3) or Fever Dextrose 12.5 gm 10/27/24 15:32 Dextrose 50% 25 Gm/50 Ml Syringe IV PUSH PRN PRN Hypoglycemia Protocol Enoxaparin Sodium 40 mg 10/29/24 09:00 10/29/24 08:03 Enoxaparin 40 Mg/0.4 Ml Syringe SUB-Q 40 mg DAILY RASHARD Administration Glucagon 1 mg 10/27/24 15:32 Glucagon For Inj 1 Mg Vial IM PRN PRN Hypoglycemia Protocol Glucose 15 gm 10/27/24 15:32 Glucose Oral Gel 15 Gm Of Glucse In 37.5 Gm Tube PO PRN PRN Hypoglycemia Protocol Cefepime HCl 2 gm/ Sodium 50 mls @ 100 mls/hr 10/27/24 22:00 10/29/24 21:00 Chloride IVPB 100 mls/hr Q8H RASHARD Administration Dextrose 1,000 mls @ 100 mls/hr 10/27/24 15:32 Dextrose 5% 1,000 Ml IVPB PRN PRN Hypoglycemia Protocol Ibuprofen 800 mg in 200 mls @ 400 mls/hr 10/27/24 23:19 10/28/24 00:05 Caldolor 800 Mg/200 Ml IVPB Infused Q6H PRN Infusion Fever >101 Vancomycin HCl 1,500 mg in 500 mls @ 250 mls/hr 10/29/24 03:00 10/29/24 15:14 Vancomycin 1,500 Mg/Ns 500 Ml IVPB 250 mls/hr Q12H RASHARD Administration Insulin Aspart 2 - 4 units 10/28/24 21:00 10/29/24 20:52 Insulin Aspart (*Bkc) 100 Units/Ml SUB-Q 3 units HS RASHARD Administration Protocol Insulin Aspart 4 - 8 units 10/28/24 09:50 10/29/24 16:59 Insulin Aspart (*Bkc) 100 Units/Ml SUB-Q 6 units TIDWM RASHARD Administration Protocol Insulin Aspart 5 units 10/29/24 12:00 10/29/24 16:59 Insulin Aspart (*Bkc) 100 Units/Ml SUB-Q 5 units TIDWM RASHARD Administration Insulin Glargine 20 units 10/28/24 08:00 10/29/24 08:05 Insulin Glargine (*Bkc) 100 Units/Ml SUB-Q 20 units QAM RASHARD Administration Labetalol HCl 20 mg 10/28/24 07:58 Labetalol Hcl Inj 100 Mg/20 Ml Vial IV PUSH Q4H PRN SBP > 160 and HR> 60 -1st choice Lisinopril 20 mg 10/29/24 09:00 10/29/24 09:52 Lisinopril 20 Mg Tablet PO 20 mg QAM RASHARD Administration Ondansetron HCl 4 mg 10/27/24 15:29 Ondansetron Inj 4 Mg/2 Ml Vial IV PUSH Q4H PRN Nausea Pantoprazole Sodium 40 mg 10/28/24 09:00 10/29/24 08:03 Pantoprazole Sodium Iv 40 Mg Vial IV PUSH 40 mg QAM RASHARD Administration Sodium Chloride 1 gm 10/29/24 09:00 10/29/24 16:58 Sodium Chloride 1 Gm Tablet PO 1 gm BID RASHARD Administration Radiology Results: ITS Impressions Chest X-Ray 10/27/24 12:54 IMPRESSION: 1. No acute cardiopulmonary findings. Chest/Abdomen/Pelvis CT 10/27/24 14:37 IMPRESSION: 1. Wall thickening of the esophagus, which may be edema or esophagitis. 2. Ventral hernia containing nonobstructed small and large bowel. Cervical Spine CT 10/28/24 20:19 IMPRESSION: 1. Severe cervical spondylosis. Thoracic/Lumbar Spine CT 10/28/24 20:23 IMPRESSION: 1. Mild thoracic and lumbar spondylosis. Labs Labs: Laboratory Results - last 24 hr 10/28/24 10/29/24 10/29/24 23:43 03:50 07:49 WBC 15.4 H RBC 3.86 L Hgb 11.0 L Hct 34.5 L MCV 89.4 MCH 28.5 MCHC 31.9 L RDW 14.2 Plt Count 187 MPV 11.0 H Sodium 123 L 123 L Potassium 4.1 4.2 Chloride 95 L 94 L Carbon Dioxide 22 22 Anion Gap 6 7 BUN 16 15 Creatinine 0.59 L 0.55 L Estim Creat Clear Calc 211 225 Estimated GFR > 60 > 60 Glucose 285 H 284 H POC Capillary Glucose 277 H Calcium 8.5 8.4 Phosphorus 3.3 Magnesium 2.0 Total Bilirubin 1.1 AST 71 H ALT 33 Alkaline Phosphatase 208 H Total Protein 6.3 Albumin 2.4 L TSH 1.150 Random Cortisol 25.00 10/29/24 10/29/24 10/29/24 11:22 12:11 16:55 WBC RBC Hgb Hct MCV MCH MCHC RDW Plt Count MPV Sodium 124 L Potassium Chloride Carbon Dioxide Anion Gap BUN Creatinine Estim Creat Clear Calc Estimated GFR Glucose POC Capillary Glucose 283 H 316 H Calcium Phosphorus Magnesium Total Bilirubin AST ALT Alkaline Phosphatase Total Protein Albumin TSH Random Cortisol 10/29/24 10/29/24 18:32 20:50 WBC RBC Hgb Hct MCV MCH MCHC RDW Plt Count MPV Sodium 120 L Potassium Chloride Carbon Dioxide Anion Gap BUN Creatinine Estim Creat Clear Calc Estimated GFR Glucose POC Capillary Glucose 311 H Calcium Phosphorus Magnesium Total Bilirubin AST ALT Alkaline Phosphatase Total Protein Albumin TSH Random Cortisol
[2024-10-30] VITALS (14 sets, daily range): BP systolic 130–146; BP diastolic 63–80; PULSE 72–116; RESP 16–31; TEMP 36.8–37.4; O2SAT 91–96; BMI 46.7
[2024-10-30 01:02] LABS: Alanine Aminotransferase 37 U/L (6-50); Albumin Level 2.4 g/dL (3.5-5.1); Alkaline Phosphatase 187 U/L (38-126); Anion Gap 6 mmol/L (4-12); Aspartate Amino Transferase 61 U/L (17-59); Bilirubin,Total 0.9 mg/dL (0.2-1.3); Blood Urea Nitrogen 15 mg/dL (9-20); Calcium 8.4 mg/dL (8.4-10.2); Carbon Dioxide 24 mmol/L (22-30); Chloride 94 mmol/L (98-107); Estimated CRCL calculation 217 ml/min; Estimated Glomerular Filt Rate > 60; Glucose 278 mg/dL (65-110); Potassium 3.9 mmol/L (3.4-5.0); Sodium 124 mmol/L (137-145); Total Protein 6.6 g/dL (6.3-8.2)
[2024-10-30 03:58] LABS: Hematocrit 32.6 % (42.0-52.0); Hemoglobin 10.8 g/dL (14.0-18.0); Mean Corpuscular HGB Conc 33.1 g/dl (32-36); Mean Corpuscular Hemoglobin 28.7 pg (26-34); Mean Corpuscular Volume 86.7 fl (80-100); Platelet Count Result 282 k/mm3 (150-375); Red Blood Count 3.76 M/mm3 (4.6-6.20); White Blood Count 13.0 K/mm3 (4.5-10.0)
[2024-10-30 04:12] LABS: Alanine Aminotransferase 37 U/L (6-50); Albumin Level 2.5 g/dL (3.5-5.1); Alkaline Phosphatase 180 U/L (38-126); Anion Gap 3 mmol/L (4-12); Aspartate Amino Transferase 59 U/L (17-59); Bilirubin,Total 1.0 mg/dL (0.2-1.3); Blood Urea Nitrogen 15 mg/dL (9-20); Calcium 8.5 mg/dL (8.4-10.2); Carbon Dioxide 26 mmol/L (22-30); Chloride 94 mmol/L (98-107); Estimated CRCL calculation 228 ml/min; Estimated Glomerular Filt Rate > 60; Glucose 266 mg/dL (65-110); Magnesium 2.0 mg/dL (1.6-2.3); Potassium 3.9 mmol/L (3.4-5.0); Sodium 123 mmol/L (137-145); Total Protein 6.7 g/dL (6.3-8.2)
[2024-10-30] MEDS: VANCOMYCIN 2,000 MG/NS 500 ML 2,000 MG/500 ML BAG 250 MG IVPB (05:01)
[2024-10-30] MEDS: CEFEPIME 2 GM in SODIUM CHLORIDE 0.9% IV 50 ML 100 ML IVPB (05:02)
--- NOTE | 2024-10-30 06:42 | PC.NURSE ---
This patient, Pillo Bullard, was transferred to [facility]– [place] on 10/30/24 at 0642. Personal belongings sent with patient. Report given to day RN. Appropriate documentation sent with patient. Family contacted.
[2024-10-30] MEDS: ACETAMINOPHEN 325 MG TABLET 650 MG PO ×3 (09:25→18:01)
[2024-10-30] MEDS: PANTOPRAZOLE SODIUM IV 40 MG VIAL IV PUSH (09:26)
[2024-10-30] MEDS: ENOXAPARIN 40 MG/0.4 ML SYRINGE SUB-Q (09:26)
[2024-10-30] MEDS: INSULIN GLARGINE (*BKC) 100 UNITS/ML 20 UNITS SUB-Q (09:26)
[2024-10-30] MEDS: INSULIN ASPART (*BKC) 100 UNITS/ML SUB-Q ×5 (09:26→20:35)
[2024-10-30] MEDS: SODIUM CHLORIDE 1 GM TABLET PO ×2 (09:27→16:24)
[2024-10-30 10:13] LABS: Sodium 125 mmol/L (137-145)
--- NOTE | 2024-10-30 11:35 | P.PNNP_ITS ---
Progress Note: A&P Assessment and Plan (1) Hyponatremia: Code(s): E87.1 - Hypo-osmolality and hyponatremia Status: Acute Assessment and Plan: * fluctuating * acute versus acute on chronic versus chronic?? * last labs available are from July 2023 -- sodium 136mmol/L at that time * suspect hyperglycemia more to blame with regard to hyponatremia * corrected sodium on admission (with glucose of 348) is closer to 126mmol/L * most recent sodium of 128mmol/L corrects to 131mmol/L * hence. suspicion is he probably has chronic hyponatremia related to hyperglycemia/poor controlled diabetes * however, likely had a contributing component of volume depletion/dehydration on admission (prerenal with urine sodium < 5) * narcotics contributing?? -- urine drug screen + for cocaine * pain also playing a role as well * evaluation to date noted: * normal TSH * cortisol okay * SPEP/UPEP pending * serum/urine osmo pending * optimize glycemic control * follow the trend of sodiums (in relation to blood sugars) (2) Bacteremia: Code(s): R78.81 - Bacteremia Status: Acute Assessment and Plan: * presumed etiology of sepsis/SIRS symptoms/findings (tachycardia, tachypnea, leukocytosis, lactic acidosis and elevated procalcitonin) on admission * blood culture results noted: * 10/27 - Streptococcus agalactiae * source of infection? * TTE negative for endocarditis * CT cervical/thoracic/lumbar spine without discitis/osteomyelitis * further imaging needed? * follow repeat cultures * on antibiotics (3) DKA (diabetic ketoacidosis): Code(s): E11.10 - Type 2 diabetes mellitus with ketoacidosis without coma Status: Acute Assessment and Plan: * resolved * transitioned to Lantus and SSI * see #6 (4) Hypertension: Code(s): I10 - Essential (primary) hypertension Status: Acute Assessment and Plan: * BP rising * started on lisinopril * follow trend of hemodynamics (5) Weakness: Code(s): R53.1 - Weakness Status: Acute Assessment and Plan: * due to acute illness, deconditioning, and poor ambulation prior to admission * imaging noted to date (CT cervical/thoracic/lumbar spine): * severe cervical spondylosis * mild thoracic and lumbar spondylosis * no evidence of infection * ongoing PT/OT as tolerated (6) Diabetes: Code(s): E11.9 - Type 2 diabetes mellitus without complications Status: Acute Assessment and Plan: * poor control at baseline * HgbA1c 10.8 * glycemic control per mems integration engineer/hospitalist Will continue to follow. L Subjective Date/time seen: 10/30/24 11:35 Interval history: Follow-up for hyponatremia (acute versus acute on chronic?). Sodium continues to fluctuate as noted by trend of sodium levels but is asymptomatic with regard to this issue; transferred out of ICU earlier this morning; still with generalized pain but more motivated to work with therapy; no other apparent complaints voiced. Exam 2 Narrative: General: large WD/WN male in NAD Heart: normal S1 and S2; no rub Lungs: clear to auscultation Abdomen: soft, nontender, nondistended, positive bowel sounds Extremities: no cyanosis or clubbing; no edema Skin: warm and intact Objective Data Vital Signs Vital Signs: Vital Signs Temp Pulse Resp BP Pulse Ox O2 Del Method 10/30/24 10:00 99.4 F 72 16 142/80 H 93 10/30/24 08:00 96 Room Air 10/30/24 08:00 108 H 10/30/24 08:00 98.4 F 109 H 16 140/75 95 10/30/24 06:00 108 H 10/30/24 04:00 108 H 10/30/24 04:00 98.3 F 111 H 29 H 130/70 92 10/30/24 04:00 92 Room Air 10/30/24 02:00 111 H 10/30/24 00:00 98.3 F 109 H 31 H 135/73 91 10/30/24 00:00 91 Room Air 10/30/24 00:00 110 H 10/29/24 22:00 110 H 10/29/24 20:00 98.5 F 107 H 21 H 114/91 H 95 10/29/24 20:00 105 H 10/29/24 20:00 98 Room Air 10/29/24 18:00 104 H Intake/Output Intake/Output: Intake & Output 10/27/24 10/28/24 10/29/24 10/30/24 23:59 23:59 23:59 23:59 Intake Total 3880.0 5372.4 4690 770 Output Total 300 3275 1300 2350 Balance 3580.0 2097.4 5170 -7703 Meds/Results Medications: Active Medications Generic Name Dose Route Start Last Admin Trade Name Freq PRN Reason Stop Dose Admin Acetaminophen 650 mg 10/27/24 15:29 10/30/24 14:34 Acetaminophen 325 Mg Tablet PO 650 mg Q4H PRN Administration Mild Pain (1-3) or Fever Acetaminophen 650 mg 10/27/24 16:03 Acetaminophen 650 Mg Suppository RECTAL Q6H PRN Mild Pain (1-3) or Fever Dextrose 12.5 gm 10/27/24 15:32 Dextrose 50% 25 Gm/50 Ml Syringe IV PUSH PRN PRN Hypoglycemia Protocol Enoxaparin Sodium 40 mg 10/29/24 09:00 10/30/24 09:26 Enoxaparin 40 Mg/0.4 Ml Syringe SUB-Q 40 mg DAILY RAHSARD Administration Glucagon 1 mg 10/27/24 15:32 Glucagon For Inj 1 Mg Vial IM PRN PRN Hypoglycemia Protocol Glucose 15 gm 10/27/24 15:32 Glucose Oral Gel 15 Gm Of Glucse In 37.5 Gm Tube PO PRN PRN Hypoglycemia Protocol Dextrose 1,000 mls @ 100 mls/hr 10/27/24 15:32 Dextrose 5% 1,000 Ml IVPB PRN PRN Hypoglycemia Protocol Ibuprofen 800 mg in 200 mls @ 400 mls/hr 10/27/24 23:19 10/28/24 00:05 Caldolor 800 Mg/200 Ml IVPB Infused Q6H PRN Infusion Fever >101 Ceftriaxone Sodium 2 gm/ 100 mls @ 200 mls/hr 10/30/24 14:00 10/30/24 15:04 Sodium Chloride IVPB Infused Q24H RASHARD Infusion Insulin Aspart 2 - 4 units 10/28/24 21:00 10/29/24 20:52 Insulin Aspart (*Bkc) 100 Units/Ml SUB-Q 3 units HS RASHARD Administration Protocol Insulin Aspart 4 - 8 units 10/28/24 09:50 10/30/24 12:39 Insulin Aspart (*Bkc) 100 Units/Ml SUB-Q 6 units TIDWM RASHARD Administration Protocol Insulin Aspart 8 units 10/30/24 12:00 10/30/24 12:39 Insulin Aspart (*Bkc) 100 Units/Ml SUB-Q 8 units TIDWM RASHARD Administration Insulin Glargine 24 units 10/31/24 09:00 Insulin Glargine (*Bkc) 100 Units/Ml SUB-Q QAM RASHARD Labetalol HCl 20 mg 10/28/24 07:58 Labetalol Hcl Inj 100 Mg/20 Ml Vial IV PUSH Q4H PRN SBP > 160 and HR> 60 -1st choice Lisinopril 20 mg 10/29/24 09:00 10/30/24 09:27 Lisinopril 20 Mg Tablet PO 20 mg QAM RASHARD Administration Ondansetron HCl 4 mg 10/27/24 15:29 Ondansetron Inj 4 Mg/2 Ml Vial IV PUSH Q4H PRN Nausea Pantoprazole Sodium 40 mg 10/28/24 09:00 10/30/24 09:26 Pantoprazole Sodium Iv 40 Mg Vial IV PUSH 40 mg QAM RASHARD Administration Sodium Chloride 1 gm 10/29/24 09:00 10/30/24 16:24 Sodium Chloride 1 Gm Tablet PO 1 gm BID RASHARD Administration Radiology Results: ITS Impressions Chest X-Ray 10/27/24 12:54 IMPRESSION: 1. No acute cardiopulmonary findings. Chest/Abdomen/Pelvis CT 10/27/24 14:37 IMPRESSION: 1. Wall thickening of the esophagus, which may be edema or esophagitis. 2. Ventral hernia containing nonobstructed small and large bowel. Cervical Spine CT 10/28/24 20:19 IMPRESSION: 1. Severe cervical spondylosis. Thoracic/Lumbar Spine CT 10/28/24 20:23 IMPRESSION: 1. Mild thoracic and lumbar spondylosis. Venous Doppler Study 10/30/24 10:43 IMPRESSION: 1. No DVT either leg. 2. Bilateral Klein's cysts. Hip CT 10/30/24 12:05 IMPRESSION: 1. Mild degenerative skeletal changes the right hip, bilateral sacralized joints and visualized lower lumbar spine. No acute osseous abnormality. Labs Labs: Laboratory Tests 10/30/24 03:41 10/30/24 09:53 10/30/24 03:41 Sodium 123 L Potassium 3.9 Chloride 94 L Carbon Dioxide 26 Anion Gap 3 L BUN 15 Creatinine 0.55 L Estim Creat Clear Calc 228 Estimated GFR > 60 Glucose 266 H Calcium 8.5 Phosphorus 3.6 Magnesium 2.0 Total Bilirubin 1.0 AST 59 ALT 37 Alkaline Phosphatase 180 H Total Protein 6.7 Albumin 2.5 L Microbiology 10/27/24 12:19 Blood Blood Culture - Final Streptococcus agalactiae 10/27/24 12:06 Blood Blood Culture - Final Streptococcus agalactiae
[2024-10-30] MEDS: INSULIN ASPART (*BKC) 100 UNITS/ML 8 UNITS SUB-Q ×2 (12:39→18:01)
[2024-10-30 13:09] LABS: Albumin 1.5 g/dL (2.9-4.4); Alpha-1-Globulin 0.5 g/dL (0.0-0.4); Alpha-2-Globulin 1.4 g/dL (0.4-1.0); Gamma Globulin 1.3 g/dL (0.4-1.8)
[2024-10-30] MEDS: cefTRIAXone 2 GM in SODIUM CHLORIDE 0.9% IV 100 ML 200 ML IVPB (14:34)
--- NOTE | 2024-10-30 14:49 | CONS_ITS ---
Report was recreated on 11/11/24. Original report was signed by Mattie Villeda APRN on 10/30/24 at 1459. Assessment and Plan Assessment and plan (1) Bacteremia: Code(s): R78.81 - Bacteremia Status: Acute Assessment and Plan: Patient presented with fever and weakness He has been noted to have blood cultures positive for strep agalactiae ID is following and have requested NEHEMIAS to r/o endocarditis His surface echo demonstrates a normal EF and no obvious vegetations noted Have reviewed NEHEMIAS risk/benefits with patient and underastanding verbalized. Patient wishes to proceed Will plan for NEHEMIAS on Saturday (2) Hyponatremia: Code(s): E87.1 - Hypo-osmolality and hyponatremia Status: Acute Assessment and Plan: Persistent hyponatremia in setting of poorly controlled glucose Management as per primary team (3) Non-insulin dependent diabetes mellitus: Status: Acute Assessment and Plan: Poorly controlled Patient non-compliant with OP medications Glycemic control per primary team (4) Morbid obesity with BMI of 45.0-49.9, adult: Code(s): E66.01 - Morbid (severe) obesity due to excess calories; Z68.42 - Body mass index [BMI] 45.0-49.9, adult Status: Acute Assessment and Plan: Weight loss encouraged. Plan Gram positive bacteremia-will plan for NEHEMIAS on Saturday will need to be NPO after MN on Saturday History of Present Illness History of Present Illness Consult date/time: 10/30/24 14:49 Requesting physician: Radha Rucker MD Consult reason: Other (NEHEMIAS r/o endocarditis ) Reason For Visit: Sepsis hyponatremia Narrative: Pillo Bullard is a 44 y.o. male who presented to the hospital on 10/27/24 with reports of weakness and fever. Patient reports prior to admission he had felt unwell for over a week. He was admitted to ICU with sepsis. He has been treated with antibiotics and IV hydration. Today lying in bed working with physical therapy. He reports he still feels weak. He c/o abdominal bloating and indigestion. No chest pain or pressure. No shortness of breath. No dizziness or palpitations. We were asked to see as he has had positive blood cultures and NEHEMIAS has been requested to r/o endocarditis. Review of Systems 2 Review of Systems: All systems reviewed & are unremarkable except as noted in HPI and below (in HPI ) [facility] Past Medical History Medical History Diabetes Surgical History Surgical History History of incisional hernia repair Laparoscopic w mesh-2012 Open w mesh-2013 Family History Family History Other Unknown family medical history Social History Social History (Updated 10/28/24 @ 09:35 by Guzman Barney MD) Social History: Patient denies any smoking or drug use but admits to drinking 2 shots of vodka every day Smoking status: Never smoker Alcohol intake: never Lack of Transportation: No Lack of Food: Never True Current Housing: I Have Housing Concerned About Future Housing: No Difficulty Paying Gas/Electric Bills: No Difficulty Paying for Meds: No Currently Unemployed: No Education: Decline to Answer Difficulty w/ Childcare or Family Care: No Spiritual care concerns: No Meds Home Medications and Allergies Home Medications ?Medication ?Instructions ?Recorded ?Confirmed ?Type ibuprofen 200 mg tablet 200 mg PO Q6H PRN fever or pain 07/30/23 10/27/24 History metformin 500 mg tablet 500 mg PO DAILY 07/30/23 10/27/24 Histor y Allergies Allergy/AdvReac Type Severity Reaction Status Date / Time No Known Allergies Allergy Verified 10/27/24 13:22 Vital Signs Vital Signs - 24 hr 10/29/24 16:00 10/29/24 16:00 10/29/24 16:00 Temperature 37.2 C Pulse Rate 113 H 112 H Respiratory Rate 24 H Blood Pressure 122/65 Pulse Oximetry 95 Oxygen Delivery Room Air 10/29/24 18:00 10/29/24 20:00 10/29/24 20:00 Temperature Pulse Rate 104 H 105 H Respiratory Rate Blood Pressure Pulse Oximetry 98 Oxygen Delivery Room Air 10/29/24 20:00 10/29/24 22:00 10/30/24 00:00 Temperature 36.9 C Pulse Rate 107 H 110 H 110 H Respiratory Rate 21 H Blood Pressure 114/91 H Pulse Oximetry 95 Oxygen Delivery 10/30/24 00:00 10/30/24 00:00 10/30/24 02:00 Temperature 36.8 C Pulse Rate 109 H 111 H Respiratory Rate 31 H Blood Pressure 135/73 Pulse Oximetry 91 91 Oxygen Delivery Room Air 10/30/24 04:00 10/30/24 04:00 10/30/24 04:00 Temperature 36.8 C Pulse Rate 111 H 108 H Respiratory Rate 29 H Blood Pressure 130/70 Pulse Oximetry 92 92 Oxygen Delivery Room Air 10/30/24 06:00 10/30/24 08:00 10/30/24 08:00 Temperature 36.9 C Pulse Rate 108 H 109 H 108 H Respiratory Rate 16 Blood Pressure 140/75 Pulse Oximetry 95 Oxygen Delivery 10/30/24 10:00 10/30/24 12:00 10/30/24 12:00 Temperature 37.4 C Pulse Rate 112 H 72 113 H Respiratory Rate 16 Blood Pressure 142/80 H Pulse Oximetry 93 Oxygen Delivery 10/30/24 14:00 Temperature Pulse Rate 109 H Respiratory Rate Blood Pressure Pulse Oximetry Oxygen Delivery Exam 2 Const: General: comfortable and no acute distress Neck: Neck: supple and no JVD Resp: Effort & Inspection: normal respiratory effort Auscultation: clear to auscultation bilaterally Cardio: Rate: tachycardic Rhythm: regular rhythm Skin: General skin exam: normal color Neuro: Speech: normal speech Extrem: General: normal to inspection Psych: Mental Status: mental status grossly normal Results Labs and Meds 10/30/24 03:41 10/30/24 09:53 Lab results: Cardiac Enzymes 10/30/24 10/30/24 Range/Units 00:45 03:41 AST 61 H 59 (17-59) U/L CBC 10/30/24 Range/Units 03:41 WBC 13.0 H (4.5-10.0) K/mm3 RBC 3.76 L (4.6-6.20) M/mm3 Hgb 10.8 L (14.0-18.0) g/dL Hct 32.6 L (42.0-52.0) % Plt Count 282 D (150-375) k/mm3 Comprehensive Metabolic Panel 10/29/24 10/30/24 10/30/24 Range/Units 18:32 00:45 03:41 Sodium 120 L 124 L 123 L (137-145) mmol/L Potassium 3.9 3.9 (3.4-5.0) mmol/L Chloride 94 L 94 L (98-107) mmol/L Carbon Dioxide 24 26 (22-30) mmol/L BUN 15 15 (9-20) mg/dL Creatinine 0.58 L 0.55 L (0.7-1.3) mg/dL Glucose 278 H 266 H (65-110) mg/dL Calcium 8.4 8.5 (8.4-10.2) mg/dL AST 61 H 59 (17-59) U/L ALT 37 37 (6-50) U/L Alkaline Phosphatase 187 H 180 H (38-126) U/L Total Protein 6.6 6.7 (6.3-8.2) g/dL Albumin 2.4 L 2.5 L (3.5-5.1) g/dL 10/30/24 Range/Units 09:53 Sodium 125 L (137-145) mmol/L Potassium (3.4-5.0) mmol/L Chloride (98-107) mmol/L Carbon Dioxide (22-30) mmol/L BUN (9-20) mg/dL Creatinine (0.7-1.3) mg/dL Glucose (65-110) mg/dL Calcium (8.4-10.2) mg/dL AST (17-59) U/L ALT (6-50) U/L Alkaline Phosphatase (38-126) U/L Total Protein (6.3-8.2) g/dL Albumin (3.5-5.1) g/dL Intake and Output 10/29/24 10/30/24 10/30/24 23:59 07:59 15:59 Intake Total 250 550 120 Output Total 350 1600 750 Balance -100 -2695 -841 Intake: IV 50 50 Cefepime 2 gm In Sodium 50 50 Chloride 0.9% IV 50 ml @ 100 mls/hr IVPB Q8H [facility] Rx#: [id number] Oral 200 500 120 Output: Urine 750 Catheter Urine 350 1600 External/Condom 350 1600 Please be advised this is a medical document. It is intended for [id number] communication. It is written in medical language and may contain unfamiliar abbreviations or verbiage. Medical documents are intended to carry relevant information, facts as evident, and the clinical opinion of the practitioner at the time of the encounter. This report may have been done utilizing a voice recognition system. Attempts have been made to correct errors. However, there may be uncorrected grammatical, spelling, and recognition errors present. The file time of this note does not necessarily represent the time the patient was seen. Report Initialized date/time: 6810/30/24 1450 Electronically signed by: [id number]/30/24 [id number] Herrera Reyna MD 10/31/24 0806
--- NOTE | 2024-10-30 18:37 | PM.IMPN ---
Progress Note: A&P Assessment and Plan (1) Non-insulin dependent diabetes mellitus: Status: Acute (2) Acidosis: Code(s): E87.20 - Acidosis, unspecified Status: Acute (3) Hyponatremia: Code(s): E87.1 - Hypo-osmolality and hyponatremia Status: Acute (4) Weakness: Code(s): R53.1 - Weakness Status: Acute (5) Sepsis: Qualifiers: Sepsis acute organ dysfunction status: without acute organ dysfunction Sepsis type: sepsis due to unspecified organism Qualified Code(s): A41.9 - Sepsis, unspecified organism Code(s): A41.9 - Sepsis, unspecified organism Status: Acute Plan he lives with his younger brother. reports for 4 weeks now he has felt ill with weakness and pain all over his body. denies diarrhea, cough, rash. presents with fever and acidosis with increased beta hydroxybutrate. he stopped taking his metformin months ago, states some insurance issues. 4 days prior to admission his pain was so bad he reports his younger brother crushed tylenol and oxycodone pills (4 of them) into water and added [place] juice for flavor for him. when asked about cocaine found in his urine he reports his brother must have done it? he reports 2 hard liquor shots per week? it is quite unclear and his answer isn't clear continue cefepime and vancomycin. pending blood cultures. at this time we don't have a source of infection. he has no neck pain or stiffness. CT spine does not reveal osteo or diskitis. acidosis improved, DKA vs starvation ketosis or both. continue insuling regimen with sliding scale. hyponatremia is stable, likely dehydration or SIADH due to pain or both. nephrology managing currently. ----- persistent hyponatremia, nephrology to manage. fluids discontinued. Now on sodium bicarb 1 g p.o. b.i.d., fluid restriction. Records being obtained. Repeat BMP at 9:00 p.m., follow Nephrology recommendations. Patient still complains of generalized pain. has LE edema R>L. check venous dopplers. Is now more symmetric, venous Dopplers negative for DVT. leukocytosis improving, sinus tachycardia intermittently but hemodynamically stable otherwise. blood cultures in 2 bottles growing gram positive cocci. Group B strep. Discontinue cefepime and vancomycin, continue with the ceftriaxone. Repeat blood cultures today. Santo requested, no source of infection identified. Planning for SANTO on Saturday. reviewed blood sugars. elevated/uncontrolled. charge entry has added short acting bolus dosing TID 5 units. low threshold to increase regimen as long as he is eating. 10/29/2024, blood sugars continue to be uncontrolled. Increasing basal/bolus dosing at a gradual rate. Greater than 55 minutes spent on valuation, discussion with specialist, coordination of care and patient Education. lovenox full code pt/ot for weakness, improving, but still guarded, requiring multidisciplinary care Subjective Date/time seen: 10/30/24 18:37 Interval history: No major acute overnight events. Patient reports continuing to feel improvement. He is no longer diaphoretic. Slightly stronger however still overall very weak, he is motivated to work with therapy. Eating well without no issue, having bowel movements, no fever. Review of Systems Review of Systems: All systems reviewed & are unremarkable except as noted in HPI and below (subjective) Exam Const: General: comfortable and no acute distress Other: obese, appears generally weak. HENMT: Mouth: Yes moist mucous membranes Eyes: Sclera: sclerae normal Pupils: Equal, round and reactive pupils present Neck: Neck: supple Resp: Effort & Inspection: normal respiratory effort Auscultation: clear to auscultation bilaterally Cardio: Rate: regular rate Rhythm: regular rhythm Heart sounds: no murmurs GI: Inspection: non-distended GI Palp: Yes Soft to palpation Neuro: Other: generalized weakness, symmetric although Extrem: Other: 1+ bilateral lower extremity edema Psych: Mental Status: mental status grossly normal Objective Data Vital Signs Vital Signs: Vital Signs - 24 hr 10/29/24 20:00 10/29/24 20:00 10/29/24 20:00 Temperature 98.5 F Pulse Rate 105 H 107 H Respiratory Rate 21 H Blood Pressure 114/91 H Pulse Oximetry 98 95 Oxygen Delivery Room Air 10/29/24 22:00 10/30/24 00:00 10/30/24 00:00 Temperature Pulse Rate 110 H 110 H Respiratory Rate Blood Pressure Pulse Oximetry 91 Oxygen Delivery Room Air 10/30/24 00:00 10/30/24 02:00 10/30/24 04:00 Temperature 98.3 F Pulse Rate 109 H 111 H Respiratory Rate 31 H Blood Pressure 135/73 Pulse Oximetry 91 92 Oxygen Delivery Room Air 10/30/24 04:00 10/30/24 04:00 10/30/24 06:00 Temperature 98.3 F Pulse Rate 111 H 108 H 108 H Respiratory Rate 29 H Blood Pressure 130/70 Pulse Oximetry 92 Oxygen Delivery 10/30/24 08:00 10/30/24 08:00 10/30/24 08:00 Temperature 98.4 F Pulse Rate 109 H 108 H Respiratory Rate 16 Blood Pressure 140/75 Pulse Oximetry 95 96 Oxygen Delivery Room Air 10/30/24 10:00 10/30/24 12:00 10/30/24 12:00 Temperature 99.4 F Pulse Rate 112 H 72 113 H Respiratory Rate 16 Blood Pressure 142/80 H Pulse Oximetry 93 Oxygen Delivery 10/30/24 12:00 10/30/24 14:00 10/30/24 15:52 Temperature 98.7 F Pulse Rate 109 H 110 H Respiratory Rate 20 Blood Pressure 134/63 Pulse Oximetry 96 96 Oxygen Delivery Room Air 10/30/24 16:00 10/30/24 16:00 10/30/24 18:00 Temperature Pulse Rate 109 H 108 H Respiratory Rate Blood Pressure Pulse Oximetry 96 Oxygen Delivery Room Air Intake/Output Intake/Output: Intake & Output 10/27/24 10/28/24 10/29/24 10/30/24 23:59 23:59 23:59 23:59 Intake Total 3880.0 5372.4 4690 890 Output Total 300 3275 1300 2800 Balance 3580.0 2097.4 3390 -1910 Meds/Results Medications: Active Medications Generic Name Dose Route Start Last Admin Trade Name Freq PRN Reason Stop Dose Admin Acetaminophen 650 mg 10/27/24 15:29 10/30/24 18:01 Acetaminophen 325 Mg Tablet PO 650 mg Q4H PRN Administration Mild Pain (1-3) or Fever Acetaminophen 650 mg 10/27/24 16:03 Acetaminophen 650 Mg Suppository RECTAL Q6H PRN Mild Pain (1-3) or Fever Dextrose 12.5 gm 10/27/24 15:32 Dextrose 50% 25 Gm/50 Ml Syringe IV PUSH PRN PRN Hypoglycemia Protocol Enoxaparin Sodium 40 mg 10/29/24 09:00 10/30/24 09:26 Enoxaparin 40 Mg/0.4 Ml Syringe SUB-Q 40 mg DAILY RASHARD Administration Glucagon 1 mg 10/27/24 15:32 Glucagon For Inj 1 Mg Vial IM PRN PRN Hypoglycemia Protocol Glucose 15 gm 10/27/24 15:32 Glucose Oral Gel 15 Gm Of Glucse In 37.5 Gm Tube PO PRN PRN Hypoglycemia Protocol Dextrose 1,000 mls @ 100 mls/hr 10/27/24 15:32 Dextrose 5% 1,000 Ml IVPB PRN PRN Hypoglycemia Protocol Ibuprofen 800 mg in 200 mls @ 400 mls/hr 10/27/24 23:19 10/28/24 00:05 Caldolor 800 Mg/200 Ml IVPB Infused Q6H PRN Infusion Fever >101 Ceftriaxone Sodium 2 gm/ 100 mls @ 200 mls/hr 10/30/24 14:00 10/30/24 15:04 Sodium Chloride IVPB Infused Q24H RASHARD Infusion Insulin Aspart 2 - 4 units 10/28/24 21:00 10/29/24 20:52 Insulin Aspart (*Bkc) 100 Units/Ml SUB-Q 3 units HS RASHARD Administration Protocol Insulin Aspart 4 - 8 units 10/28/24 09:50 10/30/24 18:01 Insulin Aspart (*Bkc) 100 Units/Ml SUB-Q 6 units TIDWM RASHARD Administration Protocol Insulin Aspart 8 units 10/30/24 12:00 10/30/24 18:01 Insulin Aspart (*Bkc) 100 Units/Ml SUB-Q 8 units TIDWM RASHARD Administration Insulin Glargine 24 units 10/31/24 09:00 Insulin Glargine (*Bkc) 100 Units/Ml SUB-Q QAM RASHARD Labetalol HCl 20 mg 10/28/24 07:58 Labetalol Hcl Inj 100 Mg/20 Ml Vial IV PUSH Q4H PRN SBP > 160 and HR> 60 -1st choice Lisinopril 20 mg 10/29/24 09:00 10/30/24 09:27 Lisinopril 20 Mg Tablet PO 20 mg QAM RASHARD Administration Ondansetron HCl 4 mg 10/27/24 15:29 Ondansetron Inj 4 Mg/2 Ml Vial IV PUSH Q4H PRN Nausea Pantoprazole Sodium 40 mg 10/28/24 09:00 10/30/24 09:26 Pantoprazole Sodium Iv 40 Mg Vial IV PUSH 40 mg QAM RASHARD Administration Sodium Chloride 1 gm 10/29/24 09:00 10/30/24 16:24 Sodium Chloride 1 Gm Tablet PO 1 gm BID RASHARD Administration Radiology Results: ITS Impressions Chest X-Ray 10/27/24 12:54 IMPRESSION: 1. No acute cardiopulmonary findings. Chest/Abdomen/Pelvis CT 10/27/24 14:37 IMPRESSION: 1. Wall thickening of the esophagus, which may be edema or esophagitis. 2. Ventral hernia containing nonobstructed small and large bowel. Cervical Spine CT 10/28/24 20:19 IMPRESSION: 1. Severe cervical spondylosis. Thoracic/Lumbar Spine CT 10/28/24 20:23 IMPRESSION: 1. Mild thoracic and lumbar spondylosis. Venous Doppler Study 10/30/24 10:43 IMPRESSION: 1. No DVT either leg. 2. Bilateral Klein's cysts. Hip CT 10/30/24 12:05 IMPRESSION: 1. Mild degenerative skeletal changes the right hip, bilateral sacralized joints and visualized lower lumbar spine. No acute osseous abnormality. Labs Labs: Laboratory Results - last 24 hr 10/29/24 10/29/24 10/29/24 03:50 18:32 20:50 WBC RBC Hgb Hct MCV MCH MCHC RDW Plt Count MPV Sodium 120 L Potassium Chloride Carbon Dioxide Anion Gap BUN Creatinine Estim Creat Clear Calc Estimated GFR Glucose POC Capillary Glucose 311 H Calcium Phosphorus Magnesium Total Bilirubin AST ALT Alkaline Phosphatase Total Protein Total Protein (PEP) 5.5 L Albumin Albumin (PEP) 1.5 L Globulin (PEP) 4.0 H Albumin/Globulin Ratio 0.4 L Smbuu-6-Dfskikasb 0.5 H Deomq-4-Befpymlxa 1.4 H Beta Globulins 0.8 Gamma Globulins 1.3 PEP Comment Comment Vancomycin Trough Pr Electrophoresis MSpike Not observed 10/30/24 10/30/24 10/30/24 00:45 02:00 03:41 WBC 13.0 H RBC 3.76 L Hgb 10.8 L Hct 32.6 L MCV 86.7 MCH 28.7 MCHC 33.1 RDW 14.0 Plt Count 282 D MPV 10.4 Sodium 124 L 123 L Potassium 3.9 3.9 Chloride 94 L 94 L Carbon Dioxide 24 26 Anion Gap 6 3 L BUN 15 15 Creatinine 0.58 L 0.55 L Estim Creat Clear Calc 217 228 Estimated GFR > 60 > 60 Glucose 278 H 266 H POC Capillary Glucose Calcium 8.4 8.5 Phosphorus 3.6 Magnesium 2.0 Total Bilirubin 0.9 1.0 AST 61 H 59 ALT 37 37 Alkaline Phosphatase 187 H 180 H Total Protein 6.6 6.7 Total Protein (PEP) Albumin 2.4 L 2.5 L Albumin (PEP) Globulin (PEP) Albumin/Globulin Ratio Vicng-8-Nudlgnsno Tdhvr-4-Xumfutdiq Beta Globulins Gamma Globulins PEP Comment Vancomycin Trough 6.4 L Pr Electrophoresis [facility] 10/30/24 10/30/24 10/30/24 07:22 09:53 10:23 WBC RBC Hgb Hct MCV MCH MCHC RDW Plt Count MPV Sodium 125 L Potassium Chloride Carbon Dioxide Anion Gap BUN Creatinine Estim Creat Clear Calc Estimated GFR Glucose POC Capillary Glucose 266 H 299 H Calcium Phosphorus Magnesium Total Bilirubin AST ALT Alkaline Phosphatase Total Protein Total Protein (PEP) Albumin Albumin (PEP) Globulin (PEP) Albumin/Globulin Ratio Kzver-2-Rrofuvzqb Mxwdj-3-Dczyfznfw Beta Globulins Gamma Globulins PEP Comment Vancomycin Trough Pr Electrophoresis [facility] 10/30/24 10/30/24 11:31 16:34 WBC RBC Hgb Hct MCV MCH MCHC RDW Plt Count MPV Sodium Potassium Chloride Carbon Dioxide Anion Gap BUN Creatinine Estim Creat Clear Calc Estimated GFR Glucose POC Capillary Glucose 308 H 313 H Calcium Phosphorus Magnesium Total Bilirubin AST ALT Alkaline Phosphatase Total Protein Total Protein (PEP) Albumin Albumin (PEP) Globulin (PEP) Albumin/Globulin Ratio Kizin-6-Njcvqwifh Zrikv-1-Tqbqjjaak Beta Globulins Gamma Globulins PEP Comment Vancomycin Trough Pr Electrophoresis [facility]
[2024-10-30 20:29] LABS: Anion Gap 4 mmol/L (4-12); Blood Urea Nitrogen 13 mg/dL (9-20); Calcium 8.4 mg/dL (8.4-10.2); Carbon Dioxide 27 mmol/L (22-30); Chloride 96 mmol/L (98-107); Estimated CRCL calculation 228 ml/min; Estimated Glomerular Filt Rate > 60; Glucose 274 mg/dL (65-110); Potassium 3.7 mmol/L (3.4-5.0); Sodium 127 mmol/L (137-145)
[2024-10-31] VITALS (12 sets, daily range): BP systolic 111–143; BP diastolic 59–71; PULSE 96–109; RESP 14–22; TEMP 36.6–37.3; O2SAT 94–98
[2024-10-31] MEDS: ACETAMINOPHEN 325 MG TABLET 650 MG PO ×3 (03:48→15:09)
[2024-10-31 04:37] LABS: Hematocrit 32.7 % (42.0-52.0); Hemoglobin 10.3 g/dL (14.0-18.0); Mean Corpuscular HGB Conc 31.5 g/dl (32-36); Mean Corpuscular Hemoglobin 28.5 pg (26-34); Mean Corpuscular Volume 90.3 fl (80-100); Platelet Count Result 402 k/mm3 (150-375); Red Blood Count 3.62 M/mm3 (4.6-6.20); White Blood Count 11.9 K/mm3 (4.5-10.0)
[2024-10-31 04:54] LABS: Alanine Aminotransferase 32 U/L (6-50); Albumin Level 2.5 g/dL (3.5-5.1); Alkaline Phosphatase 151 U/L (38-126); Anion Gap 5 mmol/L (4-12); Aspartate Amino Transferase 41 U/L (17-59); Bilirubin,Total 0.7 mg/dL (0.2-1.3); Blood Urea Nitrogen 11 mg/dL (9-20); Calcium 8.4 mg/dL (8.4-10.2); Carbon Dioxide 27 mmol/L (22-30); Chloride 95 mmol/L (98-107); Estimated CRCL calculation 231 ml/min; Estimated Glomerular Filt Rate > 60; Glucose 262 mg/dL (65-110); Magnesium 1.9 mg/dL (1.6-2.3); Potassium 4.0 mmol/L (3.4-5.0); Sodium 127 mmol/L (137-145); Total Protein 6.8 g/dL (6.3-8.2)
--- NOTE | 2024-10-31 07:49 | P.PNIM_ITS ---
Progress Note: A&P Assessment and Plan (1) Non-insulin dependent diabetes mellitus: Status: Acute (2) Acidosis: Code(s): E87.20 - Acidosis, unspecified Status: Acute (3) Hyponatremia: Code(s): E87.1 - Hypo-osmolality and hyponatremia Status: Acute (4) Weakness: Code(s): R53.1 - Weakness Status: Acute (5) Sepsis: Qualifiers: Sepsis acute organ dysfunction status: without acute organ dysfunction Sepsis type: sepsis due to unspecified organism Qualified Code(s): A41.9 - Sepsis, unspecified organism Code(s): A41.9 - Sepsis, unspecified organism Status: Acute (6) Bacteremia: Code(s): R78.81 - Bacteremia Status: Acute (7) Hypertension: Code(s): I10 - Essential (primary) hypertension Status: Acute (8) Morbid obesity with BMI of 45.0-49.9, adult: Code(s): E66.01 - Morbid (severe) obesity due to excess calories; Z68.42 - Body mass index [BMI] 45.0-49.9, adult Status: Acute Plan 44-year-old male with PMH diabetes without current long-term use of insulin with noncompliance, alcohol use, questionable cocaine use.José Miguel marshall lives with his younger brother. reports for 4 weeks now he has felt ill with weakness and pain all over his body. denies diarrhea, cough, rash. presents with fever and acidosis with increased beta hydroxybutrate. Has had a very poor appetite. He stopped taking his metformin months ago, states some insurance issues. 4 days prior to admission his pain was so bad he reports his younger brother crushed tylenol and oxycodone pills (4 of them) into water and added nightmute juice for flavor for him. when asked about cocaine reported in his urine he reports his brother must have done it? he reports 2 hard liquor shots per week? it is quite unclear and his answer isn't clear. Presents to [facility] on 10/27/2024 complaining of worsening weakness. ----- Initially treated for DKA with insulin protocol in the ICU. He was transferred out on 10/30/2024. He likely had starvation ketosis as well. His A1c on admission 10.8%. We have been up titrating his insulin now at Lantus 28 units q.a.m., lispro 10 units t.i.d. with meals. Continue Accu-Cheks with hypoglycemia protocol in adjust insulin as necessary. The patient is eating now and regaining his strength. The patient has had weakness for at least a month, he is slowly improving, PT/OT evaluations ongoing. Continue fall precautions/ambulate with assistance. Care coordination arranging for SNF on discharge. He presented with leukocytosis, tachycardia, appearing very ill and diaphoretic. That is all improving. Found to have bacteremia on 10/27/2024 blood cultures. Strep agalactiae x2, pansensitive. On 10/30/2024 cefepime and vancomycin switched to ceftriaxone 2 g Q 24 hours. Briefly discussed with infectious disease independent beauty consultant, no source of infection found therefore NEHEMIAS requested from Cardiology. Anticipate this to be done on Saturday11/02/2024. Repeat blood cultures pending on 10/30/2024. Hyponatremia present on admission initially thought to be due to hyperglycemia, blood sugar still elevated. Sodium ranges between 120 and 127. Nephrology managing, records have been requested. He is on fluid restriction, sodium bicar bonate tabs 1 g p.o. b.i.d.. He still does complain of generalized body aches. Normocytic anemia: Check iron panel and ferritin, B12/folate and reticulocytes. Stable. Lisinopril started for elevated blood pressures. Continue to monitor. ----- Stable in IMU, transfer to medical floor with telemetry. Patient lives at home with the younger brother prior to admission, previously independent. Patient wishes to be full code. last BM 10/30/24 Lovenox 40 mg subQ q.day. PT/OT for weakness, improving however still requiring multi disciplinary care. Protonix discontinued Time Spent With Patient Time with patient: Greater than 35 minutes Subjective Date/time seen: 10/31/24 07:49 Interval history: No major acute overnight events. He reports generalized pain which is consistent however strength is improving. Had 1 mushy bowel movement lastly. Feels his mouth is dry due to fluid restriction. Review of Systems Review of Systems: All systems reviewed & are unremarkable except as noted in HPI and below (Subjective) Exam Const: General: comfortable and no acute distress HENMT: Mouth: Yes moist mucous membranes Eyes: Pupils: Equal, round and reactive pupils present Neck: Neck: supple Resp: Effort & Inspection: normal respiratory effort Auscultation: clear to auscultation bilaterally Cardio: Rate: tachycardic Rhythm: regular rhythm GI: Inspection: non-distended GI Palp: Yes Soft to palpation Neuro: Other: Generalized weakness Extrem: Other: 1+ pitting edema bilateral lower extremi ty below the knees Psych: Mental Status: mental status grossly normal Objective Data Vital Signs Vital Signs: Vital Signs - 24 hr 10/30/24 08:00 10/30/24 08:00 10/30/24 08:00 Temperature 98.4 F Pulse Rate 109 H 108 H Respiratory Rate 16 Blood Pressure 140/75 Pulse Oximetry 95 96 Oxygen Delivery Room Air 10/30/24 10:00 10/30/24 12:00 10/30/24 12:00 Temperature 99.4 F Pulse Rate 112 H 72 113 H Respiratory Rate 16 Blood Pressure 142/80 H Pulse Oximetry 93 Oxygen Delivery 10/30/24 12:00 10/30/24 14:00 10/30/24 15:52 Temperature 98.7 F Pulse Rate 109 H 110 H Respiratory Rate 20 Blood Pressure 134/63 Pulse Oximetry 96 96 Oxygen Delivery Room Air 10/30/24 16:00 10/30/24 16:00 10/30/24 18:00 Temperature Pulse Rate 109 H 108 H Respiratory Rate Blood Pressure Pulse Oximetry 96 Oxygen Delivery Room Air 10/30/24 20:00 10/30/24 20:00 10/30/24 20:00 Temperature 99 F Pulse Rate 116 H 108 H Respiratory Rate 20 Blood Pressure 146/78 H Pulse Oximetry 96 Oxygen Delivery Room Air 10/30/24 21:40 10/30/24 23:32 10/31/24 00:00 Temperature 98.6 F Pulse Rate 103 H 105 H Respiratory Rate 18 Blood Pressure 146/72 H Pulse Oximetry 96 Oxygen Delivery Room Air 10/31/24 00:00 10/31/24 02:00 10/31/24 04:00 Temperature Pulse Rate 107 H 108 H Respiratory Rate Blood Pressure Pulse Oximetry Oxygen Delivery Room Air 10/31/24 04:00 10/31/24 04:00 10/31/24 05:53 Temperature 98 F Pulse Rate 108 H 108 H 108 H Respiratory Rate 18 Blood Pressure 143/71 H Pulse Oximetry 94 Oxygen Delivery Intake/Output Intake/Output: Intake & Output 10/28/24 10/29/24 10/30/24 10/31/24 23:59 23:59 23:59 23:59 Intake Total 5372.4 4690 950 500 Output Total 3275 1300 2800 700 Balance 2097.4 1366 -0946 -330 Meds/Results Medications: Active Medications Generic Name Dose Route Start Last Admin Trade Name Freq PRN Reason Stop Dose Admin Acetaminophen 650 mg 10/27/24 15:29 10/31/24 03:48 Acetaminophen 325 Mg Tablet PO 650 mg Q4H PRN Administration Mild Pain (1-3) or Fever Acetaminophen 650 mg 10/27/24 16:03 Acetaminophen 650 Mg Suppository RECTAL Q6H PRN Mild Pain (1-3) or Fever Dextrose 12.5 gm 10/27/24 15:32 Dextrose 50% 25 Gm/50 Ml Syringe IV PUSH PRN PRN Hypoglycemia Protocol Enoxaparin Sodium 40 mg 10/29/24 09:00 10/30/24 09:26 Enoxaparin 40 Mg/0.4 Ml Syringe SUB-Q 40 mg DAILY RASHARD Administration Glucagon 1 mg 10/27/24 15:32 Glucagon For Inj 1 Mg Vial IM PRN PRN Hypoglycemia Protocol Glucose 15 gm 10/27/24 15:32 Glucose Oral Gel 15 Gm Of Glucse In 37.5 Gm Tube PO PRN PRN Hypoglycemia Protocol Dextrose 1,000 mls @ 100 mls/hr 10/27/24 15:32 Dextrose 5% 1,000 Ml IVPB PRN PRN Hypoglycemia Protocol Ceftriaxone Sodium 2 gm/ 100 mls @ 200 mls/hr 10/30/24 14:00 10/30/24 15:04 Sodium Chloride IVPB Infused Q24H [facility] Infusion Insulin Aspart 2 - 4 units 10/28/24 21:00 10/30/24 20:35 Insulin Aspart (*Bkc) 100 Units/Ml SUB-Q 2 units HS RASHARD Administration Protocol Insulin Aspart 4 - 8 units 10/28/24 09:50 10/30/24 18:01 Insulin Aspart (*Bkc) 100 Units/Ml SUB-Q 6 units TIDWM RASHARD Administration Protocol Insulin Aspart 10 units 10/31/24 08:00 Insulin Aspart (*Bkc) 100 Units/Ml SUB-Q TIDWM [facility] Insulin Glargine 28 units 10/31/24 09:00 Insulin Glargine (*Bkc) 100 Units/Ml SUB-Q QAM RASHARD Labetalol HCl 20 mg 10/28/24 07:58 Labetalol Hcl Inj 100 Mg/20 Ml Vial IV PUSH Q4H PRN SBP > 160 and HR> 60 -1st choice Lisinopril 20 mg 10/29/24 09:00 10/30/24 09:27 Lisinopril 20 Mg Tablet PO 20 mg QAM RASHARD Administration Ondansetron HCl 4 mg 10/27/24 15:29 Ondansetron Inj 4 Mg/2 Ml Vial IV PUSH Q4H PRN Nausea Sodium Chloride 1 gm 10/29/24 09:00 10/30/24 16:24 Sodium Chloride 1 Gm Tablet PO 1 gm BID RASHARD Administration Radiology Results: ITS Impressions Chest X-Ray 10/27/24 12:54 IMPRESSION: 1. No acute cardiopulmonary findings. Chest/Abdomen/Pelvis CT 10/27/24 14:37 IMPRESSION: 1. Wall thickening of the esophagus, which may be edema or esophagitis. 2. Ventral hernia containing nonobstructed small and large bowel. Cervical Spine CT 10/28/24 20:19 IMPRESSION: 1. Severe cervical spondylosis. Thoracic/Lumbar Spine CT 10/28/24 20:23 IMPRESSION: 1. Mild thoracic and lumbar spondylosis. Venous Doppler Study 10/30/24 10:43 IMPRESSION: 1. No DVT either leg. 2. Bilateral Klein's cysts. Hip CT 10/30/24 12:05 IMPRESSION: 1. Mild degenerative skeletal changes the right hip, bilateral sacralized joints and visualized lower lumbar spine. No acute osseous abnormality. Labs Labs: Laboratory Results - last 24 hr 10/29/24 10/30/24 10/30/24 03:50 07:22 09:53 WBC RBC Hgb Hct MCV MCH MCHC RDW Plt Count MPV Sodium 125 L Potassium Chloride Carbon Dioxide Anion Gap BUN Creatinine Estim Creat Clear Calc Estimated GFR Glucose POC Capillary Glucose 266 H Calcium Phosphorus Magnesium Total Bilirubin AST ALT Alkaline Phosphatase Total Protein Total Protein (PEP) 5.5 L Albumin Albumin (PEP) 1.5 L Globulin (PEP) 4.0 H Albumin/Globulin Ratio 0.4 L Pbmcl-2-Qcqckzdrx 0.5 H Ggajs-3-Yrnimccsw 1.4 H Beta Globulins 0.8 Gamma Globulins 1.3 PEP Comment Comment Pr Electrophoresis MSpike Not observed 10/30/24 10/30/24 10/30/24 10:23 11:31 16:34 WBC RBC Hgb Hct MCV MCH MCHC RDW Plt Count MPV Sodium Potassium Chloride Carbon Dioxide Anion Gap BUN Creatinine Estim Creat Clear Calc Estimated GFR Glucose POC Capillary Glucose 299 H 308 H 313 H Calcium Phosphorus Magnesium Total Bilirubin AST ALT Alkaline Phosphatase Total Protein Total Protein (PEP) Albumin Albumin (PEP) Globulin (PEP) Albumin/Globulin Ratio Fctbm-7-Jxdktvccq Qdrcq-9-Gygnhatyz Beta Globulins Gamma Globulins PEP Comment Pr Electrophoresis MSpike 10/30/24 10/30/24 10/31/24 19:57 19:58 04:18 WBC 11.9 H RBC 3.62 L Hgb 10.3 L Hct 32.7 L MCV 90.3 MCH 28.5 MCHC 31.5 L RDW 14.1 Plt Count 402 H MPV 10.0 Sodium 127 L 127 L Potassium 3.7 4.0 Chloride 96 L 95 L Carbon Dioxide 27 27 Anion Gap 4 5 BUN 13 11 Creatinine 0.55 L 0.54 L Estim Creat Clear Calc 228 231 Estimated GFR > 60 > 60 Glucose 274 H 262 H POC Capillary Glucose 267 H Calcium 8.4 8.4 Phosphorus 3.1 Magnesium 1.9 Total Bilirubin 0.7 AST 41 ALT 32 Alkaline Phosphatase 151 H Total Protein 6.8 Total Protein (PEP) Albumin 2.5 L Albumin (PEP) Globulin (PEP) Albumin/Globulin Ratio Lbnoo-8-Svmhobvhb Qyfbm-7-Pznxhzeez Beta Globulins Gamma Globulins PEP Comment Pr Electrophoresis MSpike
[2024-10-31] MEDS: INSULIN GLARGINE (*BKC) 100 UNITS/ML 28 UNITS SUB-Q (08:09)
[2024-10-31] MEDS: INSULIN ASPART (*BKC) 100 UNITS/ML 10 UNITS SUB-Q ×3 (08:10→16:22)
[2024-10-31] MEDS: INSULIN ASPART (*BKC) 100 UNITS/ML SUB-Q ×4 (08:13→21:26)
[2024-10-31] MEDS: SODIUM CHLORIDE 1 GM TABLET PO (08:14)
[2024-10-31] MEDS: ENOXAPARIN 40 MG/0.4 ML SYRINGE SUB-Q (08:14)
--- NOTE | 2024-10-31 10:15 | P.PNNP_ITS ---
Progress Note: A&P Assessment and Plan (1) Hyponatremia: Code(s): E87.1 - Hypo-osmolality and hyponatremia Status: Acute Assessment and Plan: * fluctuating * acute versus acute on chronic versus chronic?? * last labs available are from July 2023 -- sodium 136mmol/L at that time * suspect hyperglycemia more to blame with regard to hyponatremia * corrected sodium on admission (with glucose of 348) is closer to 126mmol/L * most recent sodium of 128mmol/L corrects to 131mmol/L * hence. suspicion is he probably has chronic hyponatremia maybe related to hyperglycemia/poor controlled diabetes * however, likely had a contributing component of volume depletion/dehydration on admission (prerenal with urine sodium < 5) * narcotics contributing?? -- urine drug screen + for cocaine * pain also playing a role as well (?) * evaluation to date noted: * normal TSH * cortisol okay * SPEP without M-spike; UPEP pending * serum/urine osmo pending * optimize glycemic control * once blood sugars stable, will help better determine best strategy to maintain sodium... * due to edema, will dc salt tabs for now * follow the trend of sodiums (in relation to blood sugars) (2) Bacteremia: Code(s): R78.81 - Bacteremia Status: Acute Assessment and Plan: * presumed etiology of sepsis/SIRS symptoms/findings (tachycardia, tachypnea, leukocytosis, lactic acidosis and elevated procalcitonin) on admission * blood culture results noted: * 10/27 - Streptococcus agalactiae * 10/30 - pending * source of infection? * TTE negative for endocarditis * CT cervical/thoracic/lumbar spine without discitis/osteomyelitis * NEHEMIAS planned next week * follow repeat cultures * on antibiotics (3) DKA (diabetic ketoacidosis): Code(s): E11.10 - Type 2 diabetes mellitus with ketoacidosis without coma Status: Acute Assessment and Plan: * resolved * transitioned to Lantus and SSI * see #6 (4) Hypertension: Code(s): I10 - Essential (primary) hypertension Status: Acute Assessment and Plan: * BP rising * started on lisinopril * follow trend of hemodynamics (5) Weakness: Code(s): R53.1 - Weakness Status: Acute Assessment and Plan: * due to acute illness, deconditioning, and poor ambulation prior to admission * imaging noted to date (CT cervical/thoracic/lumbar spine): * severe cervical spondylosis * mild thoracic and lumbar spondylosis * no evidence of infection * ongoing PT/OT as tolerated (6) Diabetes: Code(s): E11.9 - Type 2 diabetes mellitus without complications Status: Acute Assessment and Plan: * poor control at baseline * HgbA1c 10.8 * glycemic control per hospitalist Will continue to follow. L Subjective Date/time seen: 10/31/24 10:15 Interval history: Follow-up for hyponatremia (acute versus acute on chronic?). Sodium relatively stable at this time (corrected sodium better given hyperglycemia); generalized pain still present but better overall; wokring with therapy as tolerated; nursing notes some issues with swelling and edema as well; no apparent distress noted when seen. Exam 2 Narrative: General: large WD/WN male in NAD Heart: normal S1 and S2; no rub Lungs: clear to auscultation Abdomen: soft, nontender, nondistended, positive bowel sounds Extremities: no cyanosis or clubbing; trace edema Skin: no rash Objective Data Vital Signs Vital Signs: Vital Signs Temp Pulse Resp BP Pulse Ox O2 Del Method 10/31/24 10:00 98.9 F 106 H 18 125/59 L 95 10/31/24 08:00 Room Air 10/31/24 08:00 108 H 10/31/24 08:00 98.7 F 105 H 14 130/69 98 10/31/24 05:53 108 H 10/31/24 04:00 98 F 108 H 18 143/71 H 94 10/31/24 04:00 108 H 10/31/24 04:00 Room Air 10/31/24 02:00 108 H 10/31/24 00:00 107 H 10/31/24 00:00 Room Air 10/30/24 23:32 98.6 F 105 H 18 146/72 H 96 10/30/24 21:40 103 H 10/30/24 20:00 108 H 10/30/24 20:00 Room Air 10/30/24 20:00 99 F 116 H 20 146/78 H 96 10/30/24 18:00 108 H Intake/Output Intake/Output: Intake & Output 10/28/24 10/29/24 10/30/24 10/31/24 23:59 23:59 23:59 23:59 Intake Total 5372.4 4690 950 1080 Output Total 0873 5263 2803 1350 Balance 2097.4 0506 -8488 -600 Meds/Results Medications: Active Medications Generic Name Dose Route Start Last Admin Trade Name Freq PRN Reason Stop Dose Admin Acetaminophen 650 mg 10/27/24 15:29 10/31/24 15:09 Acetaminophen 325 Mg Tablet PO 650 mg Q4H PRN Administration Mild Pain (1-3) or Fever Acetaminophen 650 mg 10/27/24 16:03 Acetaminophen 650 Mg Suppository RECTAL Q6H PRN Mild Pain (1-3) or Fever Dextrose 12.5 gm 10/27/24 15:32 Dextrose 50% 25 Gm/50 Ml Syringe IV PUSH PRN PRN Hypoglycemia Protocol Enoxaparin Sodium 40 mg 10/29/24 09:00 10/31/24 08:14 Enoxaparin 40 Mg/0.4 Ml Syringe SUB-Q 40 mg DAILY RASHARD Administration Glucagon 1 mg 10/27/24 15:32 Glucagon For Inj 1 Mg Vial IM PRN PRN Hypoglycemia Protocol Glucose 15 gm 10/27/24 15:32 Glucose Oral Gel 15 Gm Of Glucse In 37.5 Gm Tube PO PRN PRN Hypoglycemia Protocol Dextrose 1,000 mls @ 100 mls/hr 10/27/24 15:32 Dextrose 5% 1,000 Ml IVPB PRN PRN Hypoglycemia Protocol Ceftriaxone Sodium 2 gm/ 100 mls @ 200 mls/hr 10/30/24 14:00 10/31/24 15:37 Sodium Chloride IVPB Infused Q24H RASHARD Infusion Insulin Aspart 2 - 4 units 10/28/24 21:00 10/30/24 20:35 Insulin Aspart (*Bkc) 100 Units/Ml SUB-Q 2 units HS RASHARD Administration Protocol Insulin Aspart 4 - 8 units 10/28/24 09:50 10/31/24 16:23 Insulin Aspart (*Bkc) 100 Units/Ml SUB-Q 4 units TIDWM RASHARD Administration Protocol Insulin Aspart 10 units 10/31/24 08:00 10/31/24 16:22 Insulin Aspart (*Bkc) 100 Units/Ml SUB-Q 10 units TIDWM RASHARD Administration Insulin Glargine 28 units 10/31/24 09:00 10/31/24 08:09 Insulin Glargine (*Bkc) 100 Units/Ml SUB-Q 28 units QAM RASHARD Administration Labetalol HCl 20 mg 10/28/24 07:58 Labetalol Hcl Inj 100 Mg/20 Ml Vial IV PUSH Q4H PRN SBP > 160 and HR> 60 -1st choice Lisinopril 20 mg 10/29/24 09:00 10/31/24 08:13 Lisinopril 20 Mg Tablet PO 20 mg QAM RASHARD Administration Ondansetron HCl 4 mg 10/27/24 15:29 Ondansetron Inj 4 Mg/2 Ml Vial IV PUSH Q4H PRN Nausea Radiology Results: ITS Impressions Chest X-Ray 10/27/24 12:54 IMPRESSION: 1. No acute cardiopulmonary findings. Chest/Abdomen/Pelvis CT 10/27/24 14:37 IMPRESSION: 1. Wall thickening of the esophagus, which may be edema or esophagitis. 2. Ventral hernia containing nonobstructed small and large bowel. Cervical Spine CT 10/28/24 20:19 IMPRESSION: 1. Severe cervical spondylosis. Thoracic/Lumbar Spine CT 10/28/24 20:23 IMPRESSION: 1. Mild thoracic and lumbar spondylosis. Venous Doppler Study 10/30/24 10:43 IMPRESSION: 1. No DVT either leg. 2. Bilateral Klein's cysts. Hip CT 10/30/24 12:05 IMPRESSION: 1. Mild degenerative skeletal changes the right hip, bilateral sacralized joints and visualized lower lumbar spine. No acute osseous abnormality. Labs Labs: Laboratory Tests 10/31/24 04:18 10/31/24 04:18 Calcium 8.4 Phosphorus 3.1 Magnesium 1.9 Total Bilirubin 0.7 AST 41 ALT 32 Alkaline Phosphatase 151 H Total Protein 6.8 Albumin 2.5 L Microbiology 10/27/24 12:19 Blood Blood Culture - Final Streptococcus agalactiae 10/27/24 12:06 Blood Blood Culture - Final Streptococcus agalactiae
[2024-10-31] MEDS: cefTRIAXone 2 GM in SODIUM CHLORIDE 0.9% IV 100 ML 200 ML IVPB (15:07)
[2024-11-01] VITALS (10 sets, daily range): BP systolic 125–147; BP diastolic 66–99; PULSE 103–116; RESP 16–20; TEMP 36.7–38.4; O2SAT 95–99
[2024-11-01 04:36] LABS: Hematocrit 29.8 % (42.0-52.0); Hemoglobin 9.7 g/dL (14.0-18.0); Immature Reticulocyte Fraction 31.1 % (3.0-15.9); Mean Corpuscular HGB Conc 32.6 g/dl (32-36); Mean Corpuscular Hemoglobin 29.3 pg (26-34); Mean Corpuscular Volume 90.0 fl (80-100); Platelet Count Result 479 k/mm3 (150-375); Red Blood Count 3.31 M/mm3 (4.6-6.20); Reticulocyte Hemoglobin Conten 31.4 pg (28.2-36.6); Reticulocytes Absolute 0.05 10^6/uL (0.02-0.10); White Blood Count 13.0 K/mm3 (4.5-10.0)
[2024-11-01 05:01] LABS: Iron 26 ug/dL (49-181)
[2024-11-01 05:10] LABS: Percent Iron Saturation 16 % (20-50)
[2024-11-01] MEDS: ACETAMINOPHEN 325 MG TABLET 650 MG PO ×2 (06:35→20:36)
[2024-11-01 06:46] LABS: Ferritin > 2000.00 ng/mL (17.9-464)
[2024-11-01 07:16] LABS: Alanine Aminotransferase 26 U/L (6-50); Albumin Level 2.2 g/dL (3.5-5.1); Alkaline Phosphatase 133 U/L (38-126); Anion Gap 4 mmol/L (4-12); Aspartate Amino Transferase 37 U/L (17-59); Bilirubin,Total 0.7 mg/dL (0.2-1.3); Blood Urea Nitrogen 8 mg/dL (9-20); Calcium 8.2 mg/dL (8.4-10.2); Carbon Dioxide 27 mmol/L (22-30); Chloride 96 mmol/L (98-107); Estimated CRCL calculation 269 ml/min; Estimated Glomerular Filt Rate > 60; Glucose 202 mg/dL (65-110); Magnesium 1.7 mg/dL (1.6-2.3); Potassium 4.5 mmol/L (3.4-5.0); Sodium 127 mmol/L (137-145); Total Protein 6.1 g/dL (6.3-8.2); Vitamin B12 984.0 pg/mL (239-931)
[2024-11-01] MEDS: INSULIN ASPART (*BKC) 100 UNITS/ML SUB-Q ×2 (09:26→13:04)
[2024-11-01] MEDS: INSULIN GLARGINE (*BKC) 100 UNITS/ML 28 UNITS SUB-Q (09:26)
[2024-11-01] MEDS: ENOXAPARIN 40 MG/0.4 ML SYRINGE SUB-Q (09:26)
[2024-11-01] MEDS: INSULIN ASPART (*BKC) 100 UNITS/ML 10 UNITS SUB-Q ×3 (09:27→16:33)
[2024-11-01] MEDS: ALBUMIN HUMAN 25% 25 GM/100 ML 100 ML IVPB (11:22)
--- NOTE | 2024-11-01 11:51 | P.PNNP_ITS ---
Progress Note: A&P Assessment and Plan (1) Hyponatremia: Code(s): E87.1 - Hypo-osmolality and hyponatremia Status: Acute Assessment and Plan: * fluctuating * acute versus acute on chronic versus chronic?? * last labs available are from July 2023 -- sodium 136mmol/L at that time * suspect hyperglycemia playing a role with regard to hyponatremia * corrected sodium on admission (with glucose of 348) is closer to 126mmol/L * hence, suspicion is he probably has chronic hyponatremia maybe related to hyperglycemia/poor controlled diabetes * however, likely had a contributing component of volume depletion/dehydration on admission (prerenal with urine sodium < 5) * narcotics contributing?? -- urine drug screen + for cocaine * pain also playing a role as well (?) * evaluation to date noted: * normal TSH * cortisol okay * SPEP without M-spike; UPEP pending * serum/urine osmo pending * optimize glycemic control * once blood sugars stable, will help better determine best strategy to maintain sodium... * off salt tabs and fluid restriction for now * follow the trend of sodiums (in relation to blood sugars) (2) Bacteremia: Code(s): R78.81 - Bacteremia Status: Acute Assessment and Plan: * presumed etiology of sepsis/SIRS symptoms/findings (tachycardia, tachypnea, leukocytosis, lactic acidosis and elevated procalcitonin) on admission * blood culture results noted: * 10/27 - Streptococcus agalactiae * 10/30 - no growth to date * 11/01 - pending * source of infection? * TTE negative for endocarditis * CT cervical/thoracic/lumbar spine without discitis/osteomyelitis * NEHEMIAS planned tomorrow * follow repeat cultures * on antibiotics (3) DKA (diabetic ketoacidosis): Code(s): E11.10 - Type 2 diabetes mellitus with ketoacidosis without coma Status: Acute Assessment and Plan: * resolved * transitioned to Lantus and SSI * see #6 (4) Hypertension: Code(s): I10 - Essential (primary) hypertension Status: Acute Assessment and Plan: * BP rising * started on lisinopril * follow trend of hemodynamics (5) Weakness: Code(s): R53.1 - Weakness Status: Acute Assessment and Plan: * due to acute illness, deconditioning, and poor ambulation prior to admission * imaging noted to date (CT cervical/thoracic/lumbar spine): * severe cervical spondylosis * mild thoracic and lumbar spondylosis * no evidence of infection * ongoing PT/OT as tolerated (6) Diabetes: Code(s): E11.9 - Type 2 diabetes mellitus without complications Status: Acute Assessment and Plan: * poor control at baseline * HgbA1c 10.8 * glycemic control per hospitalist Will continue to follow. L Subjective Date/time seen: 11/01/24 11:51 Interval history: Follow-up for hyponatremia (acute versus acute on chronic?). Sodium relatively stable at this time (corrected sodium around 129 given hyperglycemia); fluid restriction and salt tabs discontinued at this time; blood culture results noted; remains hemodynamically stable and afebrile. Exam 2 Narrative: General: large WD/WN male in NAD Heart: tachycardic, normal S1 and S2; no rub Lungs: clear to auscultation Abdomen: soft, nontender, nondistended, positive bowel sounds Extremities: no cyanosis or clubbing; trace edema Skin: no nodules Objective Data Vital Signs Vital Signs: Vital Signs Temp Pulse Resp BP Pulse Ox O2 Del Method 11/01/24 11:26 98.7 F 103 H 18 125/76 99 11/01/24 08:00 Room Air 11/01/24 08:00 116 H 11/01/24 08:00 99.0 F 111 H 16 147/99 H 97 11/01/24 04:00 112 H 11/01/24 02:00 112 H 11/01/24 00:00 113 H 11/01/24 00:00 98.1 F 109 H 18 127/66 99 10/31/24 20:40 98 Room Air 10/31/24 20:00 109 H 10/31/24 20:00 Room Air 10/31/24 20:00 98.6 F 109 H 20 111/63 98 Intake/Output Intake/Output: Intake & Output 10/29/24 10/30/24 10/31/24 11/01/24 23:59 23:59 23:59 23:59 Intake Total 4690 950 1620 1030 Output Total 1300 2800 1950 1650 Balance 8791 -0293 -281 -158 Meds/Results Medications: Active Medications Generic Name Dose Route Start Last Admin Trade Name Freq PRN Reason Stop Dose Admin Acetaminophen 650 mg 10/27/24 15:29 11/01/24 06:35 Acetaminophen 325 Mg Tablet PO 650 mg Q4H PRN Administration Mild Pain (1-3) or Fever Acetaminophen 650 mg 10/27/24 16:03 Acetaminophen 650 Mg Suppository RECTAL Q6H PRN Mild Pain (1-3) or Fever Dextrose 12.5 gm 10/27/24 15:32 Dextrose 50% 25 Gm/50 Ml Syringe IV PUSH PRN PRN Hypoglycemia Protocol Enoxaparin Sodium 40 mg 10/29/24 09:00 11/01/24 09:26 Enoxaparin 40 Mg/0.4 Ml Syringe SUB-Q 40 mg DAILY RASHARD Administration Glucagon 1 mg 10/27/24 15:32 Glucagon For Inj 1 Mg Vial IM PRN PRN Hypoglycemia Protocol Glucose 15 gm 10/27/24 15:32 Glucose Oral Gel 15 Gm Of Glucse In 37.5 Gm Tube PO PRN PRN Hypoglycemia Protocol Dextrose 1,000 mls @ 100 mls/hr 10/27/24 15:32 Dextrose 5% 1,000 Ml IVPB PRN PRN Hypoglycemia Protocol Ceftriaxone Sodium 2 gm/ 100 mls @ 200 mls/hr 10/30/24 14:00 11/01/24 14:44 Sodium Chloride IVPB 200 mls/hr Q24H RASHARD Administration Insulin Aspart 2 - 4 units 10/28/24 21:00 10/31/24 21:26 Insulin Aspart (*Bkc) 100 Units/Ml SUB-Q 2 units HS RASHARD Administration Protocol Insulin Aspart 4 - 8 units 10/28/24 09:50 11/01/24 13:04 Insulin Aspart (*Bkc) 100 Units/Ml SUB-Q 5 units TIDWM RASHARD Administration Protocol Insulin Aspart 10 units 10/31/24 08:00 11/01/24 13:03 Insulin Aspart (*Bkc) 100 Units/Ml SUB-Q 10 units TIDWM RASHARD Administration Insulin Glargine 28 units 10/31/24 09:00 11/01/24 09:26 Insulin Glargine (*Bkc) 100 Units/Ml SUB-Q 28 units QAM RASHARD Administration Labetalol HCl 20 mg 10/28/24 07:58 Labetalol Hcl Inj 100 Mg/20 Ml Vial IV PUSH Q4H PRN SBP > 160 and HR> 60 -1st choice Lisinopril 20 mg 10/29/24 09:00 11/01/24 09:26 Lisinopril 20 Mg Tablet PO 20 mg QAM RASHARD Administration Ondansetron HCl 4 mg 10/27/24 15:29 Ondansetron Inj 4 Mg/2 Ml Vial IV PUSH Q4H PRN Nausea Radiology Results: ITS Impressions Chest X-Ray 10/27/24 12:54 IMPRESSION: 1. No acute cardiopulmonary findings. Chest/Abdomen/Pelvis CT 10/27/24 14:37 IMPRESSION: 1. Wall thickening of the esophagus, which may be edema or esophagitis. 2. Ventral hernia containing nonobstructed small and large bowel. Cervical Spine CT 10/28/24 20:19 IMPRESSION: 1. Severe cervical spondylosis. Thoracic/Lumbar Spine CT 10/28/24 20:23 IMPRESSION: 1. Mild thoracic and lumbar spondylosis. Venous Doppler Study 10/30/24 10:43 IMPRESSION: 1. No DVT either leg. 2. Bilateral Klein's cysts. Hip CT 10/30/24 12:05 IMPRESSION: 1. Mild degenerative skeletal changes the right hip, bilateral sacralized joints and visualized lower lumbar spine. No acute osseous abnormality. Labs Labs: Laboratory Tests 11/01/24 04:21 11/01/24 04:21 Calcium 8.2 L Phosphorus 3.5 Magnesium 1.7 Iron 26 L TIBC 161 L % Saturation 16 L Ferritin > 2000.00 H Total Bilirubin 0.7 AST 37 ALT 26 Alkaline Phosphatase 133 H Total Protein 6.1 L Albumin 2.2 L Vitamin B12 984.0 H Folate 6.0 Microbiology 10/30/24 15:27 Blood Blood Culture - Preliminary 10/30/24 15:34 Blood Blood Culture - Preliminary
[2024-11-01] MEDS: cefTRIAXone 2 GM in SODIUM CHLORIDE 0.9% IV 100 ML 200 ML IVPB (14:44)
--- NOTE | 2024-11-01 16:00 | PCOTNOTE ---
Attempted to see pt for OT treatment this afternoon. Pt was initially refusing to participate in session due to increase pain and fatigue as well as waiting for nursing to place a midline in him. Pt was educated on the importance of mobility for continue strengthening and independence with daily tasks. Pt completed 2 reps of shoulder flexion with AAROM influenced by pain and fatigue before nursing arrived for midline placement. Will continue per poc duration/frequency.
--- NOTE | 2024-11-01 17:03 | P.PNIM_ITS ---
Progress Note: A&P Assessment and Plan (1) Non-insulin dependent diabetes mellitus: Status: Acute (2) Acidosis: Code(s): E87.20 - Acidosis, unspecified Status: Acute (3) Hyponatremia: Code(s): E87.1 - Hypo-osmolality and hyponatremia Status: Acute (4) Weakness: Code(s): R53.1 - Weakness Status: Acute (5) Sepsis: Qualifiers: Sepsis acute organ dysfunction status: without acute organ dysfunction Sepsis type: sepsis due to unspecified organism Qualified Code(s): A41.9 - Sepsis, unspecified organism Code(s): A41.9 - Sepsis, unspecified organism Status: Acute (6) Bacteremia: Code(s): R78.81 - Bacteremia Status: Acute (7) Hypertension: Code(s): I10 - Essential (primary) hypertension Status: Acute (8) Morbid obesity with BMI of 45.0-49.9, adult: Code(s): E66.01 - Morbid (severe) obesity due to excess calories; Z68.42 - Body mass index [BMI] 45.0-49.9, adult Status: Acute Plan 44-year-old male with PMH diabetes without current long-term use of insulin with noncompliance, alcohol use, questionable cocaine use.José Miguel marshall lives with his younger brother. reports for 4 weeks now he has felt ill with weakness and pain all over his body. denies diarrhea, cough, rash. presents with fever and acidosis with increased beta hydroxybutrate. Has had a very poor appetite. He stopped taking his metformin months ago, states some insurance issues. 4 days prior to admission his pain was so bad he reports his younger brother crushed tylenol and oxycodone pills (4 of them) into water and added shosh[place]-bannock juice for flavor for him. when asked about cocaine reported in his urine he reports his brother must have done it? he reports 2 hard liquor shots per week? it is quite unclear and his answer isn't clear. Presents to [facility] on 10/27/2024 complaining of worsening weakness. ----- DKA resolved S?p IVF adn insulin infusion A1c 10.8 Continue Lantus 28 units, Lispro 10 untis tid with meals and SSI with accucheks monitor Strept agalactiae bacteremia No skin infections and no abd or respiratory symptoms For NEHEMIAS tomorrow F/u with repeat Cultures Continue Rocephin Hyponatremia present on admission initially thought to be due to hyperglycemia Continue salt tablets monitor Normocytic anemia: Check iron panel and ferritin, B12/folate wnl . Stable. Lisinopril started for elevated blood pressures. Continue to monitor. ----- PT/OT for possible placement as patient had progressive Generalized weakness . Patient lives at home with the younger brother prior to admission, previously independent. full code. last BM 10/30/24 Lovenox 40 mg subQ q.day. PT/OT for weakness, improving however still requiring multi disciplinary care. Protonix discontinued Subjective Date/time seen: 11/01/24 17:03 Interval history: COmfortable at bedside For NEHEMIAS tomorrow Review of Systems Review of Systems: All systems reviewed & are unremarkable except as noted in HPI and below (Subjective) ROS unobtainable: Yes unobtainable due to medical condition Exam Narrative: General: Pt is alert awake and in NAD Lungs/Chest: Trachea central Clear BS B/L, No crackles or wheezing. Cardiac: RRR. Normal S1 S2. No murmurs Circulation: Pedal pulses are intact and symmetrical. Abdomen: Normal bowel sounds. Obese. Soft. NT. ND. Extremities: No clubbing, cyanosis or edema. Warm : Nick in place Neurologic: Follows commands. Moves all 4 extremities, he appears generalized weak but his strength is symmetric in all 4 extremities he is unable to lift both of his legs on the bed and states that he hurts in his hips and knees when he tries to do it. No facial asymmetry. Cranial nerves2- 12 intact, extraocular muscles intact, PERRL AO x3, sensation to touch intact Skin: No Rash MSK: no knee or ankle swelling or redness, no swelling or redness on either of elbows or shoulders Const: General: comfortable and no acute distress Other: obese, appears generally weak. HENMT: Mouth: Yes moist mucous membranes Eyes: Sclera: sclerae normal Pupils: Equal, round and reactive pupils present Neck: Neck: supple Resp: Effort & Inspection: normal respiratory effort Auscultation: clear to auscultation bilaterally Cardio: Rate: regular rate and tachycardic Rhythm: regular rhythm Heart sounds: no murmurs GI: Inspection: non-distended Neuro: Cranial nerves: Yes Equal, round and reactive pupils present Other: Generalized weakness Extrem: General: no edema Other: 1+ pitting edema bilateral lower extremi ty below the knees Psych: Mental Status: mental status grossly normal Objective Data Vital Signs Vital Signs: Vital Signs - 24 hr 10/31/24 20:00 10/31/24 20:00 10/31/24 20:00 Temperature 98.6 F Pulse Rate 109 H 109 H Respiratory Rate 20 Blood Pressure 111/63 Pulse Oximetry 98 Oxygen Delivery Room Air 10/31/24 20:40 11/01/24 00:00 11/01/24 00:00 Temperature 98.1 F Pulse Rate 109 H 113 H Respiratory Rate 18 Blood Pressure 127/66 Pulse Oximetry 98 99 Oxygen Delivery Room Air 11/01/24 02:00 11/01/24 04:00 11/01/24 08:00 Temperature 99.0 F Pulse Rate 112 H 112 H 111 H Respiratory Rate 16 Blood Pressure 147/99 H Pulse Oximetry 97 Oxygen Delivery 11/01/24 08:00 11/01/24 08:00 11/01/24 12:00 Temperature Pulse Rate 116 H 103 H Respiratory Rate Blood Pressure Pulse Oximetry Oxygen Delivery Room Air 11/01/24 12:26 11/01/24 16:00 Temperature 98.7 F 98.3 F Pulse Rate 103 H 105 H Respiratory Rate 18 20 Blood Pressure 125/76 144/71 H Pulse Oximetry 99 98 Oxygen Delivery Intake/Output Intake/Output: Intake & Output 10/29/24 10/30/24 10/31/24 11/01/24 23:59 23:59 23:59 23:59 Intake Total 4690 950 1620 1270 Output Total 1300 2800 1950 1650 Balance 1123 -8835 -565 -917 Meds/Results Medications: Active Medications Generic Name Dose Route Start Last Admin Trade Name Freq PRN Reason Stop Dose Admin Acetaminophen 650 mg 10/27/24 15:29 11/01/24 06:35 Acetaminophen 325 Mg Tablet PO 650 mg Q4H PRN Administration Mild Pain (1-3) or Fever Acetaminophen 650 mg 10/27/24 16:03 Acetaminophen 650 Mg Suppository RECTAL Q6H PRN Mild Pain (1-3) or Fever Dextrose 12.5 gm 10/27/24 15:32 Dextrose 50% 25 Gm/50 Ml Syringe IV PUSH PRN PRN Hypoglycemia Protocol Enoxaparin Sodium 40 mg 10/29/24 09:00 11/01/24 09:26 Enoxaparin 40 Mg/0.4 Ml Syringe SUB-Q 40 mg DAILY RASHARD Administration Glucagon 1 mg 10/27/24 15:32 Glucagon For Inj 1 Mg Vial IM PRN PRN Hypoglycemia Protocol Glucose 15 gm 10/27/24 15:32 Glucose Oral Gel 15 Gm Of Glucse In 37.5 Gm Tube PO PRN PRN Hypoglycemia Protocol Dextrose 1,000 mls @ 100 mls/hr 10/27/24 15:32 Dextrose 5% 1,000 Ml IVPB PRN PRN Hypoglycemia Protocol Ceftriaxone Sodium 2 gm/ 100 mls @ 200 mls/hr 10/30/24 14:00 11/01/24 14:44 Sodium Chloride IVPB 200 mls/hr Q24H RASHARD Administration Insulin Aspart 2 - 4 units 10/28/24 21:00 10/31/24 21:26 Insulin Aspart (*Bkc) 100 Units/Ml SUB-Q 2 units HS RASHARD Administration Protocol Insulin Aspart 4 - 8 units 10/28/24 09:50 11/01/24 16:32 Insulin Aspart (*Bkc) 100 Units/Ml SUB-Q Not Given TIDWM RASHARD Protocol Insulin Aspart 10 units 10/31/24 08:00 11/01/24 16:33 Insulin Aspart (*Bkc) 100 Units/Ml SUB-Q 10 units TIDWM RASHARD Administration Insulin Glargine 28 units 10/31/24 09:00 11/01/24 09:26 Insulin Glargine (*Bkc) 100 Units/Ml SUB-Q 28 units QAM RASHRAD Administration Labetalol HCl 20 mg 10/28/24 07:58 Labetalol Hcl Inj 100 Mg/20 Ml Vial IV PUSH Q4H PRN SBP > 160 and HR> 60 -1st choice Lisinopril 20 mg 10/29/24 09:00 11/01/24 09:26 Lisinopril 20 Mg Tablet PO 20 mg QAM RASHARD Administration Ondansetron HCl 4 mg 10/27/24 15:29 Ondansetron Inj 4 Mg/2 Ml Vial IV PUSH Q4H PRN Nausea Radiology Results: ITS Impressions Chest X-Ray 10/27/24 12:54 IMPRESSION: 1. No acute cardiopulmonary findings. Chest/Abdomen/Pelvis CT 10/27/24 14:37 IMPRESSION: 1. Wall thickening of the esophagus, which may be edema or esophagitis. 2. Ventral hernia containing nonobstructed small and large bowel. Cervical Spine CT 10/28/24 20:19 IMPRESSION: 1. Severe cervical spondylosis. Thoracic/Lumbar Spine CT 10/28/24 20:23 IMPRESSION: 1. Mild thoracic and lumbar spondylosis. Venous Doppler Study 10/30/24 10:43 IMPRESSION: 1. No DVT either leg. 2. Bilateral Klein's cysts. Hip CT 10/30/24 12:05 IMPRESSION: 1. Mild degenerative skeletal changes the right hip, bilateral sacralized joints and visualized lower lumbar spine. No acute osseous abnormality. Labs Labs: Laboratory Results - last 24 hr 10/31/24 11/01/24 11/01/24 19:46 04:21 07:21 WBC 13.0 H RBC 3.31 L Hgb 9.7 L Hct 29.8 L MCV 90.0 MCH 29.3 MCHC 32.6 RDW 14.1 Plt Count 479 H MPV 9.7 Absolute Retic 0.05 Percent Retic 1.53 Immature Retic Fraction 31.1 H Retic Hgb Content 31.4 Sodium 127 L Potassium 4.5 Chloride 96 L Carbon Dioxide 27 Anion Gap 4 BUN 8 L Creatinine 0.46 L Estim Creat Clear Calc 269 Estimated GFR > 60 Glucose 202 H POC Capillary Glucose 225 H 263 H Calcium 8.2 L Phosphorus 3.5 Magnesium 1.7 Iron 26 L TIBC 161 L % Saturation 16 L Ferritin > 2000.00 H Total Bilirubin 0.7 AST 37 ALT 26 Alkaline Phosphatase 133 H Total Protein 6.1 L Albumin 2.2 L Vitamin B12 984.0 H Folate 6.0 11/01/24 11/01/24 11:47 16:31 WBC RBC Hgb Hct MCV MCH MCHC RDW Plt Count MPV Absolute Retic Percent Retic Immature Retic Fraction Retic Hgb Content Sodium Potassium Chloride Carbon Dioxide Anion Gap BUN Creatinine Estim Creat Clear Calc Estimated GFR Glucose POC Capillary Glucose 241 H 164 H Calcium Phosphorus Magnesium Iron TIBC % Saturation Ferritin Total Bilirubin AST ALT Alkaline Phosphatase Total Protein Albumin Vitamin B12 Folate Quality VTE Prophylaxis VTE prophylaxis: pharmacologic ordered
[2024-11-01] MEDS: SODIUM CHLORIDE 1 GM TABLET PO (17:35)
--- NOTE | 2024-11-01 23:21 | PC.NURSE ---
Transfer patient received from IMU per bed.
[2024-11-02] VITALS (14 sets, daily range): BP systolic 135–163; BP diastolic 69–99; PULSE 100–124; RESP 10–22; TEMP 36.3–36.9; O2SAT 93–100
--- NOTE | 2024-11-02 02:04 | PC.NURSE ---
This patient, Pillo Bullard, was transferred to [[id number] ] on 11/01/24 at 2318. Personal belongings sent with patient. Report given to [Cecilia PATTERSON ]. Appropriate documentation sent with patient.
[2024-11-02 04:30] LABS: Hematocrit 29.6 % (42.0-52.0); Hemoglobin 9.6 g/dL (14.0-18.0); Mean Corpuscular HGB Conc 32.4 g/dl (32-36); Mean Corpuscular Hemoglobin 29.4 pg (26-34); Mean Corpuscular Volume 90.8 fl (80-100); Platelet Count Result 599 k/mm3 (150-375); Red Blood Count 3.26 M/mm3 (4.6-6.20); White Blood Count 14.9 K/mm3 (4.5-10.0)
[2024-11-02 04:54] LABS: Band Neutrophils Percent 6 % (0-6); Eosinophils Absolute Manual 0.14 K/mm3 (0.02-0.50); Eosinophils Percent Manual 1 % (0-4); Lymphocytes Absolute Manual 2.23 K/mm3 (1.1-4.5); Lymphocytes Percent Manual 15.0 % (18-44); Monocytes Absolute Manual 1.34 K/mm3 (0.1-0.90); Monocytes Percent Manual 9 % (3-9); Neutrophils Absolute Manual 11.17 K/mm3 (1.3-6.7); Neutrophils Percent Manual 69 % (46-73); Total Cells Counted 100
[2024-11-02 04:55] LABS: Schistocytes None Seen; Stomatocytes Occasional
[2024-11-02 04:57] LABS: Alanine Aminotransferase 25 U/L (6-50); Albumin Level 2.6 g/dL (3.5-5.1); Alkaline Phosphatase 142 U/L (38-126); Anion Gap 4 mmol/L (4-12); Aspartate Amino Transferase 60 U/L (17-59); Bilirubin,Total 0.8 mg/dL (0.2-1.3); Blood Urea Nitrogen 9 mg/dL (9-20); Calcium 8.6 mg/dL (8.4-10.2); Carbon Dioxide 31 mmol/L (22-30); Chloride 93 mmol/L (98-107); Estimated CRCL calculation 241 ml/min; Estimated Glomerular Filt Rate > 60; Glucose 210 mg/dL (65-110); Magnesium 1.8 mg/dL (1.6-2.3); Potassium 4.4 mmol/L (3.4-5.0); Sodium 128 mmol/L (137-145); Total Protein 7.1 g/dL (6.3-8.2)
--- NOTE | 2024-11-02 08:00 | ECHO_ITS ---
Patient Info Name: Pillo Bullard Age: 44 years : 1980 Gender: Male Ht: 72 in Wt: 349 lbs BSA: 2.91 m2 Technical Quality: Good Exam Date: 11/02/2024 7:49 AM Patient Status: I Admit Date: 10/27/2024 Exam Type: CA echo transesophageal Complete two-dimensional, color flow and Doppler transesophageal study is performed. Staff Referring Physician: Jennyfer Yoon GILL BOX FIXER Outer Diameter Grinder: Della Hyatt Attending Provider: Radha Rucker Summary 1. Left ventricular chamber dimension is normal. 2. Left ventricular systolic function is normal with an ejection fraction of 65-70% by visual estimation. 3. There is moderate concentric increased left ventricular wall thickness. 4. The left ventricular diastolic function is indeterminate as it was not assesssed. 5. There is trace mitral valve regurgitation. Procedure Details Risks/benefits/alternative to NEHEMIAS discuss with patient and he gave informed consent. He was monitored electrocardiographically, vitals and pulse ox. He is in sinus rhythm at 120 bpm, BP 140/70 mmHg, pulse ox 100%. Cetacaine spray x1 go posterior oropharynx. Versed 2 mg and Fentanyl 50 mcg IV for conscious sedation. NEHEMIAS probe advanced into esophagus without incident. Multiple images obtained. Agitated saline injection x1. NEHEMIAS probe withdrawn and no blood noted on NEHEMIAS probe tip. Patient tolerated procedure well with no complications. Left Ventricle Left ventricular chamber dimension is normal. Left ventricular systolic function is normal with an ejection fraction of 65-70% by visual estimation. There is moderate concentric increased left ventricular wall thickness. The left ventricular diastolic function is indeterminate as it was not assesssed. Right Ventricle Right ventricular chamber dimension is normal. Right ventricular systolic function is normal. Left Atria Left atrial chamber dimension is normal. Right Atria Right atrial chamber dimension is normal. Atrial Septum Intact interatrial septum visualized by 2D, color flow and agitated saline imaging. Agitated saline injection with and without valsalva maneuver opacified right side cardiac chambers without shunt to left side cardiac chambers. Atrial Appendage There is no mass visualized in the left atrial appendage. Aortic Valve The aortic valve is trileaflet. There is no aortic valve stenosis. There is no aortic valve regurgitation. No aortic valve vegetation visualized. Pulmonic Valve There is no pulmonic regurgitation. No pulmonic valve vegetation visualized. Mitral Valve There is no mitral valve stenosis. There is trace mitral valve regurgitation. No mitral valve vegetation visualized. Tricuspid Valve There is no tricuspid valve regurgitation. No tricuspid valve vegetation visualized. Pericardium/Pleural There is no pericardial effusion. Inferior Vena Cava Inferior vena cava is not well visualized. Aorta The aortic root size at the sinus of Valsalva is normal. Report Signatures
[2024-11-02] MEDS: fentaNYL CITRATE INJ (*CRX) 100 MCG/2 ML VIAL 50 MCG IV PUSH (08:10)
[2024-11-02] MEDS: MIDAZOLAM HCL (*CRX) 2 MG/2 ML VIAL IV PUSH (08:10)
[2024-11-02] MEDS: INSULIN GLARGINE (*BKC) 100 UNITS/ML 28 UNITS SUB-Q (09:13)
[2024-11-02] MEDS: SODIUM CHLORIDE 1 GM TABLET PO ×2 (09:14→16:49)
[2024-11-02] MEDS: ENOXAPARIN 40 MG/0.4 ML SYRINGE SUB-Q (09:14)
--- NOTE | 2024-11-02 10:28 | P.PNIM_ITS ---
Progress Note: A&P Assessment and Plan (1) Non-insulin dependent diabetes mellitus: Status: Acute (2) Acidosis: Code(s): E87.20 - Acidosis, unspecified Status: Acute (3) Hyponatremia: Code(s): E87.1 - Hypo-osmolality and hyponatremia Status: Acute (4) Weakness: Code(s): R53.1 - Weakness Status: Acute (5) Sepsis: Qualifiers: Sepsis acute organ dysfunction status: without acute organ dysfunction Sepsis type: sepsis due to unspecified organism Qualified Code(s): A41.9 - Sepsis, unspecified organism Code(s): A41.9 - Sepsis, unspecified organism Status: Acute (6) Bacteremia: Code(s): R78.81 - Bacteremia Status: Acute (7) Hypertension: Code(s): I10 - Essential (primary) hypertension Status: Acute (8) Morbid obesity with BMI of 45.0-49.9, adult: Code(s): E66.01 - Morbid (severe) obesity due to excess calories; Z68.42 - Body mass index [BMI] 45.0-49.9, adult Status: Acute Plan 44-year-old male with PMH diabetes without current long-term use of insulin with noncompliance, alcohol use, questionable cocaine use.José Miguel marshall lives with his younger brother. reports for 4 weeks now he has felt ill with weakness and pain all over his body. denies diarrhea, cough, rash. presents with fever and acidosis with increased beta hydroxybutrate. Has had a very poor appetite. He stopped taking his metformin months ago, states some insurance issues. 4 days prior to admission his pain was so bad he reports his younger brother crushed tylenol and oxycodone pills (4 of them) into water and added eyak juice for flavor for him. when asked about cocaine reported in his urine he reports his brother must have done it? he reports 2 hard liquor shots per week? it is quite unclear and his answer isn't clear. Presents to [facility] on 10/27/2024 complaining of worsening weakness. ----- DKA resolved S/p IVF and insulin infusion A1c 10.8 Continue Lantus 28 units, Lispro 10 untis tid with meals and SSI with accucheks monitor Strept agalactiae bacteremia No skin infections and no abd or respiratory symptoms NEHEMIAS no valvular lesions At this time there is no source of infection F/u repeat blood culture Patient will need 14 days of Rocephin WBC elevated today 14.9,monitor Continue Rocephin Hyponatremia present on admission initially thought to be due to hyperglycemia Continue salt tablets Na 128 today monitor Anemia B12/folate wnl Hb 9.6, Isat 16 with ferritin 2000, likely from inflammation Hypertension 148/94 today Continue Lisinopril and started on Amlodipine monitor full code. Lovenox 40 mg subQ q.day. PT/OT for weakness, improving however still requiring multi disciplinary care. Subjective Date/time seen: 11/02/24 10:28 Interval history: Comfortable at bedside NEHEMIAS no valvular vegetations Review of Systems Review of Systems: All systems reviewed & are unremarkable except as noted in HPI and below (Subjective) ROS unobtainable: Yes unobtainable due to medical condition Exam Narrative: General: Pt is alert awake and in NAD Lungs/Chest: Trachea central Clear BS B/L, No crackles or wheezing. Cardiac: RRR. Normal S1 S2. No murmurs Circulation: Pedal pulses are intact and symmetrical. Abdomen: Normal bowel sounds. Obese. Soft. NT. ND. Extremities: No clubbing, cyanosis or edema. Warm : Nick in place Neurologic: Follows commands. Moves all 4 extremities, he appears generalized weak but his strength is symmetric in all 4 extremities he is unable to lift both of his legs on the bed and states that he hurts in his hips and knees when he tries to do it. No facial asymmetry. Cranial nerves2- 12 intact, extraocular muscles intact, PERRL AO x3, sensation to touch intact Skin: No Rash MSK: no knee or ankle swelling or redness, no swelling or redness on either of elbows or shoulders Const: General: comfortable and no acute distress Other: obese, appears generally weak. HENMT: Mouth: Yes moist mucous membranes Eyes: Sclera: sclerae normal Pupils: Equal, round and reactive pupils present Neck: Neck: supple Resp: Effort & Inspection: normal respiratory effort Auscultation: clear to auscultation bilaterally Cardio: Rate: regular rate and tachycardic Rhythm: regular rhythm Heart sounds: no murmurs GI: Inspection: non-distended Neuro: Cranial nerves: Yes Equal, round and reactive pupils present Other: Generalized weakness Extrem: General: no edema Other: 1+ pitting edema bilateral lower extremi ty below the knees Psych: Mental Status: mental status grossly normal Objective Data Vital Signs Vital Signs: Vital Signs - 24 hr 11/01/24 12:00 11/01/24 12:26 11/01/24 16:00 Temperature 98.7 F 98.3 F Pulse Rate 103 H 103 H 105 H Respiratory Rate 18 20 Blood Pressure 125/76 144/71 H Pulse Oximetry 99 98 Oxygen Delivery Oxygen Flow Rate Fraction of Inspired Oxygen 11/01/24 16:00 11/01/24 20:00 11/01/24 20:00 Temperature 100.3 F H Pulse Rate 103 H 111 H 111 H Respiratory Rate 16 Blood Pressure 140/73 Pulse Oximetry 97 Oxygen Delivery Oxygen Flow Rate Fraction of Inspired Oxygen 11/01/24 20:00 11/01/24 20:36 11/01/24 21:56 Temperature 101.2 F H Pulse Rate 115 H Respiratory Rate 20 Blood Pressure Pulse Oximetry 95 Oxygen Delivery Room Air Room Air Oxygen Flow Rate Fraction of Inspired Oxygen 11/02/24 00:00 11/02/24 00:00 11/02/24 04:00 Temperature 98.5 F Pulse Rate 100 103 H 111 H Respiratory Rate 18 Blood Pressure 157/95 H Pulse Oximetry 95 Oxygen Delivery Oxygen Flow Rate Fraction of Inspired Oxygen 11/02/24 08:00 11/02/24 08:05 11/02/24 08:10 Temperature Pulse Rate 118 H 119 H 120 H Respiratory Rate 12 10 L Blood Pressure 163/91 H 160/99 H Pulse Oximetry 100 99 Oxygen Delivery Nasal Cannula Nasal Cannula Oxygen Flow Rate 2 4 Fraction of Inspired Oxygen 11/02/24 08:15 11/02/24 08:30 11/02/24 08:45 Temperature Pulse Rate 120 H 119 H 124 H Respiratory Rate 19 22 H 14 Blood Pressure 160/86 H 158/81 H 149/94 H Pulse Oximetry 98 100 98 Oxygen Delivery Nasal Cannula Room Air Room Air Oxygen Flow Rate 4 Fraction of Inspired Oxygen 11/02/24 09:15 Temperature Pulse Rate Respiratory Rate Blood Pressure Pulse Oximetry Oxygen Delivery Room Air Oxygen Flow Rate Fraction of Inspired Oxygen Intake/Output Intake/Output: Intake & Output 10/30/24 10/31/24 11/01/24 11/02/24 23:59 23:59 23:59 23:59 Intake Total 950 1620 3710 120 Output Total 2800 1950 1950 950 Balance -1850 -330 9447 -505 Meds/Results Medications: Active Medications Generic Name Dose Route Start Last Admin Trade Name Freq PRN Reason Stop Dose Admin Acetaminophen 650 mg 10/27/24 15:29 11/01/24 20:36 Acetaminophen 325 Mg Tablet PO 650 mg Q4H PRN Administration Mild Pain (1-3) or Fever Acetaminophen 650 mg 10/27/24 16:03 Acetaminophen 650 Mg Suppository RECTAL Q6H PRN Mild Pain (1-3) or Fever Dextrose 12.5 gm 10/27/24 15:32 Dextrose 50% 25 Gm/50 Ml Syringe IV PUSH PRN PRN Hypoglycemia Protocol Enoxaparin Sodium 40 mg 10/29/24 09:00 11/02/24 09:14 Enoxaparin 40 Mg/0.4 Ml Syringe SUB-Q 40 mg DAILY RASHARD Administration Glucagon 1 mg 10/27/24 15:32 Glucagon For Inj 1 Mg Vial IM PRN PRN Hypoglycemia Protocol Glucose 15 gm 10/27/24 15:32 Glucose Oral Gel 15 Gm Of Glucse In 37.5 Gm Tube PO PRN PRN Hypoglycemia Protocol Dextrose 1,000 mls @ 100 mls/hr 10/27/24 15:32 Dextrose 5% 1,000 Ml IVPB PRN PRN Hypoglycemia Protocol Ceftriaxone Sodium 2 gm/ 100 mls @ 200 mls/hr 10/30/24 14:00 11/01/24 14:44 Sodium Chloride IVPB 200 mls/hr Q24H RASHARD Administration Insulin Aspart 2 - 4 units 10/28/24 21:00 11/01/24 20:38 Insulin Aspart (*Bkc) 100 Units/Ml SUB-Q Not Given HS [facility] Protocol Insulin Aspart 4 - 8 units 10/28/24 09:50 11/02/24 07:55 Insulin Aspart (*Bkc) 100 Units/Ml SUB-Q Not Given TIDWM [facility] Protocol Insulin Aspart 10 units 10/31/24 08:00 11/02/24 07:55 Insulin Aspart (*Bkc) 100 Units/Ml SUB-Q Not Given TIDWM [facility] Insulin Glargine 28 units 10/31/24 09:00 11/02/24 09:13 Insulin Glargine (*Bkc) 100 Units/Ml SUB-Q 28 units QAM [facility] Administration Labetalol HCl 20 mg 10/28/24 07:58 Labetalol Hcl Inj 100 Mg/20 Ml Vial IV PUSH Q4H PRN SBP > 160 and HR> 60 -1st choice Lisinopril 20 mg 10/29/24 09:00 11/02/24 09:14 Lisinopril 20 Mg Tablet PO 20 mg QAM RASHARD Administration Ondansetron HCl 4 mg 10/27/24 15:29 Ondansetron Inj 4 Mg/2 Ml Vial IV PUSH Q4H PRN Nausea Sodium Chloride 1 gm 11/01/24 17:00 11/02/24 09:14 Sodium Chloride 1 Gm Tablet PO 1 gm BID RASHARD Administration Radiology Results: ITS Impressions Chest X-Ray 10/27/24 12:54 IMPRESSION: 1. No acute cardiopulmonary findings. Chest/Abdomen/Pelvis CT 10/27/24 14:37 IMPRESSION: 1. Wall thickening of the esophagus, which may be edema or esophagitis. 2. Ventral hernia containing nonobstructed small and large bowel. Cervical Spine CT 10/28/24 20:19 IMPRESSION: 1. Severe cervical spondylosis. Thoracic/Lumbar Spine CT 10/28/24 20:23 IMPRESSION: 1. Mild thoracic and lumbar spondylosis. Venous Doppler Study 10/30/24 10:43 IMPRESSION: 1. No DVT either leg. 2. Bilateral Klein's cysts. Hip CT 10/30/24 12:05 IMPRESSION: 1. Mild degenerative skeletal changes the right hip, bilateral sacralized joints and visualized lower lumbar spine. No acute osseous abnormality. Labs Labs: Laboratory Results - last 24 hr 11/01/24 11/01/24 11/01/24 11:47 16:31 20:20 WBC RBC Hgb Hct MCV MCH MCHC RDW Plt Count MPV Immature Gran % (Auto) Neut % (Auto) Lymph % (Auto) Rogers % (Auto) Eos % (Auto) Baso % (Auto) Lymph # (Auto) Rogers # (Auto) Eos # (Auto) Baso # (Auto) Abs Immat Gran (auto) Absolute Neuts (auto) Absolute Nucleated RBC Total Counted Neutrophils % (Manual) Band Neutrophils % Lymphocytes % (Manual) Monocytes % (Manual) Eosinophils % (Manual) Nucleated RBC % Abs Neuts (Manual) Abs Lymphs (Manual) Abs Monocytes (Manual) Absolute Eos (Manual) Platelet Estimate Stomatocytes Schistocytes Sodium Potassium Chloride Carbon Dioxide Anion Gap BUN Creatinine Estim Creat Clear Calc Estimated GFR Glucose POC Capillary Glucose 241 H 164 H 162 H Lactic Acid Calcium Phosphorus Magnesium Total Bilirubin AST ALT Alkaline Phosphatase Total Protein Albumin 11/02/24 04:25 WBC 14.9 H RBC 3.26 L Hgb 9.6 L Hct 29.6 L MCV 90.8 MCH 29.4 MCHC 32.4 RDW 13.9 Plt Count 599 H MPV 9.3 Immature Gran % (Auto) Not Reportable Neut % (Auto) Not Reportable Lymph % (Auto) Not Reportable Rogers % (Auto) Not Reportable Eos % (Auto) Not Reportable Baso % (Auto) Not Reportable Lymph # (Auto) Not Reportable Rogers # (Auto) Not Reportable Eos # (Auto) Not Reportable Baso # (Auto) Not Reportable Abs Immat Gran (auto) Not Reportable Absolute Neuts (auto) Not Reportable Absolute Nucleated RBC Not Reportable Total Counted 100 Neutrophils % (Manual) 69 Band Neutrophils % 6 Lymphocytes % (Manual) 15.0 L Monocytes % (Manual) 9 Eosinophils % (Manual) 1 Nucleated RBC % Not Reportable Abs Neuts (Manual) 11.17 H Abs Lymphs (Manual) 2.23 Abs Monocytes (Manual) 1.34 H Absolute Eos (Manual) 0.14 Platelet Estimate Increased Stomatocytes Occasional Schistocytes None seen Sodium 128 L Potassium 4.4 Chloride 93 L Carbon Dioxide 31 H Anion Gap 4 BUN 9 Creatinine 0.52 L Estim Creat Clear Calc 241 Estimated GFR > 60 Glucose 210 H POC Capillary Glucose Lactic Acid 1.0 Calcium 8.6 Phosphorus 4.0 Magnesium 1.8 Total Bilirubin 0.8 AST 60 H ALT 25 Alkaline Phosphatase 142 H Total Protein 7.1 Albumin 2.6 L Quality VTE Prophylaxis VTE prophylaxis: pharmacologic ordered
--- NOTE | 2024-11-02 11:04 | P.PNNP_ITS ---
Progress Note: A&P Assessment and Plan (1) Hyponatremia: Code(s): E87.1 - Hypo-osmolality and hyponatremia Status: Acute Assessment and Plan: * stable if not better * acute versus acute on chronic versus chronic?? * last labs available are from July 2023 -- sodium 136mmol/L at that time * suspect hyperglycemia playing a role with regard to hyponatremia * corrected sodium on admission (with glucose of 348) is closer to 126mmol/L * hence, suspicion is he probably has chronic hyponatremia maybe related to hyperglycemia/poor controlled diabetes * however, likely had a contributing component of volume depletion/dehydration on admission (prerenal with urine sodium < 5) * narcotics contributing?? -- urine drug screen + for cocaine * pain also playing a role as well (?) * evaluation to date noted: * normal TSH * cortisol okay * SPEP without M-spike; UPEP not done [Unable to obtain result due to presence of unknown interfering substance(s)] * serum/urine osmo pending * optimize glycemic control * once blood sugars stable, will help better determine best strategy to maintain sodium... * resumed on salt tabs by hospitalist on 11/01 * follow the trend of sodiums (in relation to blood sugars) (2) Bacteremia: Code(s): R78.81 - Bacteremia Status: Acute Assessment and Plan: * presumed etiology of sepsis/SIRS symptoms/findings (tachycardia, tachypnea, leukocytosis, lactic acidosis and elevated procalcitonin) on admission * blood culture results noted: * 10/27 - Streptococcus agalactiae * 10/30 - no growth to date * 11/01 - pending * source of infection? * TTE negative for endocarditis * CT cervical/thoracic/lumbar spine without discitis/osteomyelitis * NEHEMIAS (done on 11/02) with no evidence of vegetations * follow repeat cultures * on antibiotics (3) DKA (diabetic ketoacidosis): Code(s): E11.10 - Type 2 diabetes mellitus with ketoacidosis without coma Status: Acute Assessment and Plan: * resolved * transitioned to Lantus and SSI * see #6 (4) Hypertension: Code(s): I10 - Essential (primary) hypertension Status: Acute Assessment and Plan: * BP rising * started on lisinopril * follow trend of hemodynamics (5) Weakness: Code(s): R53.1 - Weakness Status: Acute Assessment and Plan: * due to acute illness, deconditioning, and poor ambulation prior to admission * imaging noted to date (CT cervical/thoracic/lumbar spine): * severe cervical spondylosis * mild thoracic and lumbar spondylosis * no evidence of infection * ongoing PT/OT as tolerated (6) Diabetes: Code(s): E11.9 - Type 2 diabetes mellitus without complications Status: Acute Assessment and Plan: * poor control at baseline * HgbA1c 10.8 * glycemic control per hospitalist Will continue to follow intermittently... L Subjective Date/time seen: 11/02/24 11:04 Interval history: Follow-up for hyponatremia (acute versus acute on chronic?). Salt tablets restarted by hospitalist yesterday; sodium remains stable if not better; NEHEMIAS done earlier today with noted results; otherwise, no apparent distress voiced; no issues/events overnight or earlier this morning. Exam 2 Narrative: General: large WD/WN male in NAD Heart: tachycardic, normal S1 and S2; no rub Lungs: clear to auscultation Abdomen: soft, nontender, nondistended, positive bowel sounds Extremities: no cyanosis or clubbing; trace edema Skin: warm and dry Objective Data Vital Signs Vital Signs: Vital Signs Temp Pulse Resp BP Pulse Ox O2 Del Method O2 Flow Rate 11/02/24 09:15 Room Air 11/02/24 08:45 124 H 14 149/94 H 98 Room Air 11/02/24 08:30 119 H 22 H 158/81 H 100 Room Air 11/02/24 08:15 120 H 19 160/86 H 98 Nasal Cannula 4 11/02/24 08:10 120 H 10 L 160/99 H 99 Nasal Cannula 4 11/02/24 08:05 119 H 12 163/91 H 100 Nasal Cannula 2 11/02/24 08:00 118 H 11/02/24 04:00 111 H 11/02/24 00:00 98.5 F 103 H 18 157/95 H 95 11/02/24 00:00 100 11/01/24 21:56 115 H 20 95 Room Air 11/01/24 20:36 101.2 F H 11/01/24 20:00 Room Air 11/01/24 20:00 111 H 11/01/24 20:00 100.3 F H 111 H 16 140/73 97 Intake/Output Intake/Output: Intake & Output 10/30/24 10/31/24 11/01/24 11/02/24 23:59 23:59 23:59 23:59 Intake Total 950 1620 3810 700 Output Total 2800 1950 1950 1400 Balance -1850 -330 1860 -700 Meds/Results Medications: Active Medications Generic Name Dose Route Start Last Admin Trade Name Freq PRN Reason Stop Dose Admin Acetaminophen 650 mg 10/27/24 15:29 11/02/24 12:07 Acetaminophen 325 Mg Tablet PO 650 mg Q4H PRN Administration Mild Pain (1-3) or Fever Acetaminophen 650 mg 10/27/24 16:03 Acetaminophen 650 Mg Suppository RECTAL Q6H PRN Mild Pain (1-3) or Fever Amlodipine Besylate 5 mg 11/02/24 10:35 11/02/24 12:07 Amlodipine Besylate 5 Mg Tablet PO 5 mg DAILY RASHARD Administration Dextrose 12.5 gm 10/27/24 15:32 Dextrose 50% 25 Gm/50 Ml Syringe IV PUSH PRN PRN Hypoglycemia Protocol Enoxaparin Sodium 40 mg 10/29/24 09:00 11/02/24 09:14 Enoxaparin 40 Mg/0.4 Ml Syringe SUB-Q 40 mg DAILY RASHARD Administration Glucagon 1 mg 10/27/24 15:32 Glucagon For Inj 1 Mg Vial IM PRN PRN Hypoglycemia Protocol Glucose 15 gm 10/27/24 15:32 Glucose Oral Gel 15 Gm Of Glucse In 37.5 Gm Tube PO PRN PRN Hypoglycemia Protocol Dextrose 1,000 mls @ 100 mls/hr 10/27/24 15:32 Dextrose 5% 1,000 Ml IVPB PRN PRN Hypoglycemia Protocol Ceftriaxone Sodium 2 gm/ 100 mls @ 200 mls/hr 10/30/24 14:00 11/02/24 14:57 Sodium Chloride IVPB Infused Q24H RASHARD Infusion Insulin Aspart 2 - 4 units 10/28/24 21:00 11/01/24 20:38 Insulin Aspart (*Bkc) 100 Units/Ml SUB-Q Not Given HS RASHARD Protocol Insulin Aspart 4 - 8 units 10/28/24 09:50 11/02/24 16:49 Insulin Aspart (*Bkc) 100 Units/Ml SUB-Q 4 units TIDWM RASHARD Administration Protocol Insulin Aspart 10 units 10/31/24 08:00 11/02/24 16:49 Insulin Aspart (*Bkc) 100 Units/Ml SUB-Q 10 units TIDWM RASHARD Administration Insulin Glargine 28 units 10/31/24 09:00 11/02/24 09:13 Insulin Glargine (*Bkc) 100 Units/Ml SUB-Q 28 units QAM RASHARD Administration Labetalol HCl 20 mg 10/28/24 07:58 Labetalol Hcl Inj 100 Mg/20 Ml Vial IV PUSH Q4H PRN SBP > 160 and HR> 60 -1st choice Lisinopril 20 mg 10/29/24 09:00 11/02/24 09:14 Lisinopril 20 Mg Tablet PO 20 mg QAM RASHARD Administration Ondansetron HCl 4 mg 10/27/24 15:29 Ondansetron Inj 4 Mg/2 Ml Vial IV PUSH Q4H PRN Nausea Sodium Chloride 1 gm 11/01/24 17:00 11/02/24 16:49 Sodium Chloride 1 Gm Tablet PO 1 gm BID RASHARD Administration Radiology Results: ITS Impressions Chest X-Ray 10/27/24 12:54 IMPRESSION: 1. No acute cardiopulmonary findings. Chest/Abdomen/Pelvis CT 10/27/24 14:37 IMPRESSION: 1. Wall thickening of the esophagus, which may be edema or esophagitis. 2. Ventral hernia containing nonobstructed small and large bowel. Cervical Spine CT 10/28/24 20:19 IMPRESSION: 1. Severe cervical spondylosis. Thoracic/Lumbar Spine CT 10/28/24 20:23 IMPRESSION: 1. Mild thoracic and lumbar spondylosis. Venous Doppler Study 10/30/24 10:43 IMPRESSION: 1. No DVT either leg. 2. Bilateral Klein's cysts. Hip CT 10/30/24 12:05 IMPRESSION: 1. Mild degenerative skeletal changes the right hip, bilateral sacralized joints and visualized lower lumbar spine. No acute osseous abnormality. Labs Labs: Laboratory Tests 11/02/24 04:25 11/02/24 04:25 Lactic Acid 1.0 Calcium 8.6 Phosphorus 4.0 Magnesium 1.8 Total Bilirubin 0.8 AST 60 H ALT 25 Alkaline Phosphatase 142 H Total Protein 7.1 Albumin 2.6 L Microbiology 10/30/24 15:27 Blood Blood Culture - Preliminary 10/30/24 15:34 Blood Blood Culture - Preliminary
[2024-11-02] MEDS: ACETAMINOPHEN 325 MG TABLET 650 MG PO ×2 (12:07→22:28)
[2024-11-02] MEDS: INSULIN ASPART (*BKC) 100 UNITS/ML 10 UNITS SUB-Q ×2 (12:08→16:49)
[2024-11-02] MEDS: INSULIN ASPART (*BKC) 100 UNITS/ML SUB-Q ×2 (12:08→16:49)
[2024-11-02] MEDS: cefTRIAXone 2 GM in SODIUM CHLORIDE 0.9% IV 100 ML 200 ML IVPB (14:19)
[2024-11-03] VITALS (10 sets, daily range): BP systolic 106–147; BP diastolic 60–81; PULSE 100–111; RESP 16–20; TEMP 36–36.6; O2SAT 95–100
[2024-11-03] MEDS: ACETAMINOPHEN 325 MG TABLET 650 MG PO ×4 (02:33→20:48)
[2024-11-03 05:22] LABS: Hematocrit 32.5 % (42.0-52.0); Hemoglobin 10.3 g/dL (14.0-18.0); Mean Corpuscular HGB Conc 31.7 g/dl (32-36); Mean Corpuscular Hemoglobin 29.0 pg (26-34); Mean Corpuscular Volume 91.5 fl (80-100); Platelet Count Result 664 k/mm3 (150-375); Red Blood Count 3.55 M/mm3 (4.6-6.20); White Blood Count 15.5 K/mm3 (4.5-10.0)
[2024-11-03 05:49] LABS: Alanine Aminotransferase 23 U/L (6-50); Albumin Level 2.7 g/dL (3.5-5.1); Alkaline Phosphatase 179 U/L (38-126); Anion Gap 4 mmol/L (4-12); Aspartate Amino Transferase 42 U/L (17-59); Band Neutrophils Percent 5 % (0-6); Bilirubin,Total 0.7 mg/dL (0.2-1.3); Blood Urea Nitrogen 9 mg/dL (9-20); Calcium 8.8 mg/dL (8.4-10.2); Carbon Dioxide 31 mmol/L (22-30); Chloride 94 mmol/L (98-107); Eosinophils Absolute Manual 0.15 K/mm3 (0.02-0.50); Eosinophils Percent Manual 1 % (0-4); Estimated CRCL calculation 248 ml/min; Estimated Glomerular Filt Rate > 60; Glucose 211 mg/dL (65-110); Lymphocytes Absolute Manual 1.70 K/mm3 (1.1-4.5); Lymphocytes Percent Manual 11.0 % (18-44); Magnesium 1.9 mg/dL (1.6-2.3); Monocytes Absolute Manual 0.31 K/mm3 (0.1-0.90); Monocytes Percent Manual 2 % (3-9); Neutrophils Absolute Manual 13.33 K/mm3 (1.3-6.7); Neutrophils Percent Manual 81 % (46-73); Potassium 4.2 mmol/L (3.4-5.0); Sodium 129 mmol/L (137-145); Total Cells Counted 100; Total Protein 7.2 g/dL (6.3-8.2)
[2024-11-03 05:50] LABS: Hypochromasia 1+; Schistocytes None Seen
--- NOTE | 2024-11-03 07:50 | PM.IMPN ---
Progress Note: A&P Assessment and Plan (1) Non-insulin dependent diabetes mellitus: Status: Acute (2) Acidosis: Code(s): E87.20 - Acidosis, unspecified Status: Acute (3) Hyponatremia: Code(s): E87.1 - Hypo-osmolality and hyponatremia Status: Acute (4) Weakness: Code(s): R53.1 - Weakness Status: Acute (5) Sepsis: Qualifiers: Sepsis acute organ dysfunction status: without acute organ dysfunction Sepsis type: sepsis due to unspecified organism Qualified Code(s): A41.9 - Sepsis, unspecified organism Code(s): A41.9 - Sepsis, unspecified organism Status: Acute (6) Bacteremia: Code(s): R78.81 - Bacteremia Status: Acute (7) Hypertension: Code(s): I10 - Essential (primary) hypertension Status: Acute (8) Morbid obesity with BMI of 45.0-49.9, adult: Code(s): E66.01 - Morbid (severe) obesity due to excess calories; Z68.42 - Body mass index [BMI] 45.0-49.9, adult Status: Acute Plan 44-year-old male with PMH diabetes without current long-term use of insulin with noncompliance, alcohol use, questionable cocaine use.José Miguel marshall lives with his younger brother. reports for 4 weeks now he has felt ill with weakness and pain all over his body. denies diarrhea, cough, rash. presents with fever and acidosis with increased beta hydroxybutrate. Has had a very poor appetite. He stopped taking his metformin months ago, states some insurance issues. 4 days prior to admission his pain was so bad he reports his younger brother crushed tylenol and oxycodone pills (4 of them) into water and added [place] juice for flavor for him. when asked about cocaine reported in his urine he reports his brother must have done it? he reports 2 hard liquor shots per week? it is quite unclear and his answer isn't clear. Presents to [facility] on 10/27/2024 complaining of worsening weakness. ----- DKA resolved S/p IVF and insulin infusion A1c 10.8 Continue Lantus 28 units, Lispro 10 untis tid with meals and SSI with accucheks monitor Strept agalactiae bacteremia No skin infections and no abd or respiratory symptoms NEHEMIAS no valvular lesions At this time there is no source of infection F/u repeat blood culture Patient will need 14 days of Rocephin WBC elevated today 14.9,monitor S/p Rocephin Started on Zosyn due to leukocytosis Hyponatremia present on admission initially thought to be due to hyperglycemia Continue salt tablets Na 128 today monitor Anemia B12/folate wnl Hb 9.6, Isat 16 with ferritin 2000, likely from inflammation Hypertension Continue Lisinopril and started on Amlodipine monitor Chest pain Troponin negative Reviewed EKG Full code. Lovenox 40 mg subQ q.day. PT/OT for weakness, improving however still requiring multi disciplinary care. Subjective Date/time seen: 11/03/24 07:50 Interval history: No acute events overnight. Report chest pain. Ordered EKG and troponin. Patient has a history of hernia repair. Blood culture growing group B Streptococcus repeat blood culture x2 negative. Due to leukocytosis patient antibiotic has been deescalated to Zosyn to cover Pseudomonas. Ordered urine culture Review of Systems Review of Systems: All systems reviewed & are unremarkable except as noted in HPI and below (Subjective) ROS unobtainable: Yes unobtainable due to medical condition Exam Narrative: General: Pt is alert awake and in NAD Lungs/Chest: Trachea central Clear BS B/L, No crackles or wheezing. Cardiac: RRR. Normal S1 S2. No murmurs Circulation: Pedal pulses are intact and symmetrical. Abdomen: Normal bowel sounds. Obese. Soft. NT. ND. Extremities: No clubbing, cyanosis or edema. Warm : Nick in place Neurologic: Follows commands. Moves all 4 extremities, he appears generalized weak but his strength is symmetric in all 4 extremities he is unable to lift both of his legs on the bed and states that he hurts in his hips and knees when he tries to do it. No facial asymmetry. Cranial nerves2- 12 intact, extraocular muscles intact, PERRL AO x3, sensation to touch intact Skin: No Rash MSK: no knee or ankle swelling or redness, no swelling or redness on either of elbows or shoulders Const: General: comfortable and no acute distress Other: obese, appears generally weak. HENMT: Mouth: Yes moist mucous membranes Eyes: Sclera: sclerae normal Pupils: Equal, round and reactive pupils present Neck: Neck: supple Resp: Effort & Inspection: normal respiratory effort Auscultation: clear to auscultation bilaterally Cardio: Rate: regular rate and tachycardic Rhythm: regular rhythm Heart sounds: no murmurs GI: Inspection: non-distended Neuro: Cranial nerves: Yes Equal, round and reactive pupils present Other: Generalized weakness Extrem: General: no edema Other: 1+ pitting edema bilateral lower extremity below the knees Psych: Mental Status: mental status grossly normal Objective Data Vital Signs Vital Signs: Vital Signs - 24 hr 11/02/24 08:00 11/02/24 08:05 11/02/24 08:10 Temperature Pulse Rate 118 H 119 H 120 H Respiratory Rate 12 10 L Blood Pressure 163/91 H 160/99 H Pulse Oximetry 100 99 Oxygen Delivery Nasal Cannula Nasal Cannula Oxygen Flow Rate 2 4 Fraction of Inspired Oxygen 11/02/24 08:15 11/02/24 08:30 11/02/24 08:45 Temperature Pulse Rate 120 H 119 H 124 H Respiratory Rate 19 22 H 14 Blood Pressure 160/86 H 158/81 H 149/94 H Pulse Oximetry 98 100 98 Oxygen Delivery Nasal Cannula Room Air Room Air Oxygen Flow Rate 4 Fraction of Inspired Oxygen 11/02/24 09:15 11/02/24 12:00 11/02/24 15:03 Temperature 97.4 F L Pulse Rate 121 H 116 H Respiratory Rate 18 Blood Pressure 135/78 Pulse Oximetry 93 Oxygen Delivery Room Air Oxygen Flow Rate Fraction of Inspired Oxygen 11/02/24 16:00 11/02/24 19:27 11/02/24 20:00 Temperature 97.6 F Pulse Rate 111 H 112 H 114 H Respiratory Rate 20 Blood Pressure 139/69 Pulse Oximetry 93 Oxygen Delivery Oxygen Flow Rate Fraction of Inspired Oxygen 11/02/24 20:16 11/03/24 00:00 11/03/24 04:00 Temperature Pulse Rate 100 101 H Respiratory Rate Blood Pressure Pulse Oximetry 96 Oxygen Delivery Room Air Oxygen Flow Rate Fraction of Inspired Oxygen 11/03/24 04:37 Temperature 96.8 F L Pulse Rate 102 H Respiratory Rate 20 Blood Pressure 147/81 H Pulse Oximetry 95 Oxygen Delivery Oxygen Flow Rate Fraction of Inspired Oxygen Intake/Output Intake/Output: Intake & Output 10/31/24 11/01/24 11/02/24 11/03/24 23:59 23:59 23:59 23:59 Intake Total 1620 3810 700 490 Output Total 1950 2549 1400 400 Balance -330 1860 -700 90 Meds/Results Medications: Active Medications Generic Name Dose Route Start Last Admin Trade Name Freq PRN Reason Stop Dose Admin Acetaminophen 650 mg 10/27/24 15:29 11/03/24 02:33 Acetaminophen 325 Mg Tablet PO 650 mg Q4H PRN Administration Mild Pain (1-3) or Fever Acetaminophen 650 mg 10/27/24 16:03 Acetaminophen 650 Mg Suppository RECTAL Q6H PRN Mild Pain (1-3) or Fever Amlodipine Besylate 5 mg 11/02/24 10:35 11/02/24 12:07 Amlodipine Besylate 5 Mg Tablet PO 5 mg DAILY RASHARD Administration Dextrose 12.5 gm 10/27/24 15:32 Dextrose 50% 25 Gm/50 Ml Syringe IV PUSH PRN PRN Hypoglycemia Protocol Enoxaparin Sodium 40 mg 10/29/24 09:00 11/02/24 09:14 Enoxaparin 40 Mg/0.4 Ml Syringe SUB-Q 40 mg DAILY RASHARD Administration Glucagon 1 mg 10/27/24 15:32 Glucagon For Inj 1 Mg Vial IM PRN PRN Hypoglycemia Protocol Glucose 15 gm 10/27/24 15:32 Glucose Oral Gel 15 Gm Of Glucse In 37.5 Gm Tube PO PRN PRN Hypoglycemia Protocol Dextrose 1,000 mls @ 100 mls/hr 10/27/24 15:32 Dextrose 5% 1,000 Ml IVPB PRN PRN Hypoglycemia Protocol Ceftriaxone Sodium 2 gm/ 100 mls @ 200 mls/hr 10/30/24 14:00 11/02/24 14:57 Sodium Chloride IVPB Infused Q24H RASHARD Infusion Insulin Aspart 2 - 4 units 10/28/24 21:00 11/02/24 21:42 Insulin Aspart (*Bkc) 100 Units/Ml SUB-Q Not Given HS [facility] Protocol Insulin Aspart 4 - 8 units 10/28/24 09:50 11/03/24 07:40 Insulin Aspart (*Bkc) 100 Units/Ml SUB-Q Not Given TIDWM [facility] Protocol Insulin Aspart 10 units 10/31/24 08:00 11/02/24 16:49 Insulin Aspart (*Bkc) 100 Units/Ml SUB-Q 10 units TIDWM [facility] Administration Insulin Glargine 28 units 10/31/24 09:00 11/02/24 09:13 Insulin Glargine (*Bkc) 100 Units/Ml SUB-Q 28 units QAM RASHARD Administration Labetalol HCl 20 mg 10/28/24 07:58 Labetalol Hcl Inj 100 Mg/20 Ml Vial IV PUSH Q4H PRN SBP > 160 and HR> 60 -1st choice Lisinopril 20 mg 10/29/24 09:00 11/02/24 09:14 Lisinopril 20 Mg Tablet PO 20 mg QAM RASHARD Administration Ondansetron HCl 4 mg 10/27/24 15:29 Ondansetron Inj 4 Mg/2 Ml Vial IV PUSH Q4H PRN Nausea Sodium Chloride 1 gm 11/01/24 17:00 11/02/24 16:49 Sodium Chloride 1 Gm Tablet PO 1 gm BID RASHARD Administration Radiology Results: ITS Impressions Chest X-Ray 10/27/24 12:54 IMPRESSION: 1. No acute cardiopulmonary findings. Chest/Abdomen/Pelvis CT 10/27/24 14:37 IMPRESSION: 1. Wall thickening of the esophagus, which may be edema or esophagitis. 2. Ventral hernia containing nonobstructed small and large bowel. Cervical Spine CT 10/28/24 20:19 IMPRESSION: 1. Severe cervical spondylosis. Thoracic/Lumbar Spine CT 10/28/24 20:23 IMPRESSION: 1. Mild thoracic and lumbar spondylosis. Venous Doppler Study 10/30/24 10:43 IMPRESSION: 1. No DVT either leg. 2. Bilateral Klein's cysts. Hip CT 10/30/24 12:05 IMPRESSION: 1. Mild degenerative skeletal changes the right hip, bilateral sacralized joints and visualized lower lumbar spine. No acute osseous abnormality. Labs Labs: Laboratory Results - last 24 hr 10/29/24 11/02/24 11/02/24 03:05 12:06 16:38 WBC RBC Hgb Hct MCV MCH MCHC RDW Plt Count MPV Immature Gran % (Auto) Neut % (Auto) Lymph % (Auto) [place] % (Auto) Eos % (Auto) Baso % (Auto) Lymph # (Auto) [place] # (Auto) Eos # (Auto) Baso # (Auto) Abs Immat Gran (auto) Absolute Neuts (auto) Absolute Nucleated RBC Total Counted Neutrophils % (Manual) Band Neutrophils % Lymphocytes % (Manual) Monocytes % (Manual) Eosinophils % (Manual) Nucleated RBC % Abs Neuts (Manual) Abs Lymphs (Manual) Abs Monocytes (Manual) Absolute Eos (Manual) Platelet Estimate Hypochromasia Schistocytes Sodium Potassium Chloride Carbon Dioxide Anion Gap BUN Creatinine Estim Creat Clear Calc Estimated GFR Glucose POC Capillary Glucose 236 H 209 H Lactic Acid Calcium Magnesium Total Bilirubin AST ALT Alkaline Phosphatase Total Protein Albumin Urine Total Protein 64.1 Urine Albumin (PEP) U [id number] U Aqrol-[id number] U Beta Globulin U Gamma Globulin U Random M-Pardeep (%) Urine PEP Note Comment 11/02/24 11/03/24 11/03/24 19:27 04:23 07:29 WBC 15.5 H RBC 3.55 L Hgb 10.3 L Hct 32.5 L MCV 91.5 MCH 29.0 MCHC 31.7 L RDW 13.6 Plt Count 664 H MPV 9.3 Immature Gran % (Auto) Not Reportable Neut % (Auto) Not Reportable Lymph % (Auto) Not Reportable [place] % (Auto) Not Reportable Eos % (Auto) Not Reportable Baso % (Auto) Not Reportable Lymph # (Auto) Not Reportable [place] # (Auto) Not Reportable Eos # (Auto) Not Reportable Baso # (Auto) Not Reportable Abs Immat Gran (auto) Not Reportable Absolute Neuts (auto) Not Reportable Absolute Nucleated RBC Not Reportable Total Counted 100 Neutrophils % (Manual) 81 H Band Neutrophils % 5 Lymphocytes % (Manual) 11.0 L Monocytes % (Manual) 2 L Eosinophils % (Manual) 1 Nucleated RBC % Not Reportable Abs Neuts (Manual) 13.33 H Abs Lymphs (Manual) 1.70 Abs Monocytes (Manual) 0.31 Absolute Eos (Manual) 0.15 Platelet Estimate Increased Hypochromasia 1+ Schistocytes None seen Sodium 129 L Potassium 4.2 Chloride 94 L Carbon Dioxide 31 H Anion Gap 4 BUN 9 Creatinine 0.50 L Estim Creat Clear Calc 248 Estimated GFR > 60 Glucose 211 H POC Capillary Glucose 195 H 187 H Lactic Acid 1.0 Calcium 8.8 Magnesium 1.9 Total Bilirubin 0.7 AST 42 ALT 23 Alkaline Phosphatase 179 H Total Protein 7.2 Albumin 2.7 L Urine Total Protein Urine Albumin (PEP) U [id number] U Datfl-8-Nwwmffbr U Beta Globulin U Gamma Globulin U Random M-Pardeep (%) Urine PEP Note Quality VTE Prophylaxis VTE prophylaxis: pharmacologic ordered Hospitalist [facility] Advance Care Plan I have confirmed that the patient's Advanced Care Plan is present, code status is documented, or surrogate decision maker is listed in patient medical record.: Yes Medication Reconciliation I have utilized all available resources to obtain, update and review the patients current medications (includes all prescriptions, OTC, herbals, cannabis, and nutritional supplements).: Yes
[2024-11-03] MEDS: SODIUM CHLORIDE 1 GM TABLET PO ×2 (08:58→17:13)
[2024-11-03] MEDS: INSULIN ASPART (*BKC) 100 UNITS/ML 10 UNITS SUB-Q ×3 (08:59→17:13)
[2024-11-03] MEDS: INSULIN GLARGINE (*BKC) 100 UNITS/ML 28 UNITS SUB-Q (08:59)
[2024-11-03] MEDS: ENOXAPARIN 40 MG/0.4 ML SYRINGE SUB-Q (09:00)
[2024-11-03] MEDS: INSULIN ASPART (*BKC) 100 UNITS/ML SUB-Q ×2 (11:41→17:14)
[2024-11-03] MEDS: cefTRIAXone 2 GM in SODIUM CHLORIDE 0.9% IV 100 ML 200 ML IVPB (14:13)
--- NOTE | 2024-11-03 15:04 | ECG_ITS ---
Test Date: 2024-11-03 15:21:05 Measurements Intervals [place] Rate: 106 P: 60 SC: 161 QRS: 1 QRSD: 89 T: 38 QT: 309 QTc: 411 Interpretive Statements SINUS TACHYCARDIA ABNORMAL RHYTHM ECG Compared to ECG 10/27/2024 11:46:24 Poor R-wave progression no longer present Electronically Signed On 11-03-2024 15:57:16 CDT by Veronika Thomason M.D.
[2024-11-03] MEDS: BELLADONNA ALK/PHENOB ELIX 10 ML, MAG HYDROX/ALUMINUM HYD/SIMETH 30 ML, LIDOCAINE 2% VI... PO (15:20)
[2024-11-03 15:50] LABS: Troponin I < 0.012 ng/mL (0.000-0.034)
[2024-11-03] MEDS: PIPERACILLIN/TAZOBACTAM SOD 4.5 GM in SODIUM CHLORIDE 0.9% IV 100 ML 200 ML IVPB (17:13)
[2024-11-03] MEDS: SALINE LOCK FLUSH 10 ML IV PUSH (20:50)
[2024-11-04] VITALS (12 sets, daily range): BP systolic 124–128; BP diastolic 56–79; PULSE 63–105; RESP 18–20; TEMP 36.3–37.2; O2SAT 93–100
[2024-11-04] MEDS: PIPERACILLIN/TAZOBACTAM SOD 4.5 GM in SODIUM CHLORIDE 0.9% IV 100 ML 200 ML IVPB ×4 (00:58→17:15)
[2024-11-04] MEDS: ACETAMINOPHEN 325 MG TABLET 650 MG PO ×5 (01:32→20:30)
[2024-11-04 04:26] LABS: Hematocrit 29.8 % (42.0-52.0); Hemoglobin 9.2 g/dL (14.0-18.0); Mean Corpuscular HGB Conc 30.9 g/dl (32-36); Mean Corpuscular Hemoglobin 28.7 pg (26-34); Mean Corpuscular Volume 92.8 fl (80-100); Platelet Count Result 673 k/mm3 (150-375); Red Blood Count 3.21 M/mm3 (4.6-6.20); White Blood Count 13.5 K/mm3 (4.5-10.0)
[2024-11-04 05:05] LABS: Alanine Aminotransferase 21 U/L (6-50); Albumin Level 2.5 g/dL (3.5-5.1); Alkaline Phosphatase 131 U/L (38-126); Anion Gap 6 mmol/L (4-12); Aspartate Amino Transferase 38 U/L (17-59); Bilirubin,Total 0.5 mg/dL (0.2-1.3); Blood Urea Nitrogen 11 mg/dL (9-20); Calcium 8.9 mg/dL (8.4-10.2); Carbon Dioxide 30 mmol/L (22-30); Chloride 96 mmol/L (98-107); Estimated CRCL calculation 218 ml/min; Estimated Glomerular Filt Rate > 60; Glucose 173 mg/dL (65-110); Potassium 4.1 mmol/L (3.4-5.0); Sodium 132 mmol/L (137-145); Total Protein 7.0 g/dL (6.3-8.2)
[2024-11-04] MEDS: SALINE LOCK FLUSH 10 ML IV PUSH ×3 (05:34→20:35)
--- NOTE | 2024-11-04 08:36 | PM.IMPN ---
Progress Note: A&P Assessment and Plan (1) Non-insulin dependent diabetes mellitus: Status: Acute (2) Acidosis: Code(s): E87.20 - Acidosis, unspecified Status: Acute (3) Hyponatremia: Code(s): E87.1 - Hypo-osmolality and hyponatremia Status: Acute (4) Weakness: Code(s): R53.1 - Weakness Status: Acute (5) Sepsis: Qualifiers: Sepsis acute organ dysfunction status: without acute organ dysfunction Sepsis type: sepsis due to unspecified organism Qualified Code(s): A41.9 - Sepsis, unspecified organism Code(s): A41.9 - Sepsis, unspecified organism Status: Acute (6) Bacteremia: Code(s): R78.81 - Bacteremia Status: Acute (7) Hypertension: Code(s): I10 - Essential (primary) hypertension Status: Acute (8) Morbid obesity with BMI of 45.0-49.9, adult: Code(s): E66.01 - Morbid (severe) obesity due to excess calories; Z68.42 - Body mass index [BMI] 45.0-49.9, adult Status: Acute Plan 44-year-old male with PMH diabetes without current long-term use of insulin with noncompliance, alcohol use, questionable cocaine use.José Miguel marshall lives with his younger brother. reports for 4 weeks now he has felt ill with weakness and pain all over his body. denies diarrhea, cough, rash. presents with fever and acidosis with increased beta hydroxybutrate. Has had a very poor appetite. He stopped taking his metformin months ago, states some insurance issues. 4 days prior to admission his pain was so bad he reports his younger brother crushed tylenol and oxycodone pills (4 of them) into water and added [place] juice for flavor for him. when asked about cocaine reported in his urine he reports his brother must have done it? he reports 2 hard liquor shots per week? it is quite unclear and his answer isn't clear. Presents to [facility] on 10/27/2024 complaining of worsening weakness. ----- DKA resolved S/p IVF and insulin infusion A1c 10.8 Continue Lantus 28 units, Lispro 10 untis tid with meals and SSI with accucheks monitor Strept agalactiae bacteremia No skin infections and no abd or respiratory symptoms NEHEMIAS no valvular lesions At this time there is no source of infection F/u repeat blood culture Patient will need 14 days of Rocephin WBC elevated today 14.9,monitor S/p Rocephin Started on Zosyn due to leukocytosis Hyponatremia present on admission initially thought to be due to hyperglycemia Continue salt tablets Na 128 today monitor Anemia B12/folate wnl Hb 9.6, Isat 16 with ferritin 2000, likely from inflammation Hypertension Continue Lisinopril and started on Amlodipine monitor Chest pain Troponin negative Reviewed EKG Full code. Lovenox 40 mg subQ q.day. PT/OT for weakness, improving however still requiring multi disciplinary care. Subjective Date/time seen: 11/04/24 08:36 Interval history: Patient denies any complaints. Patient currently on Zosyn. WBC trending down. Will discuss with ID pharmacist to deescalate antibiotic. Repeat blood culture negative Review of Systems Review of Systems: All systems reviewed & are unremarkable except as noted in HPI and below (Subjective) ROS unobtainable: Yes unobtainable due to medical condition Exam Narrative: General: Pt is alert awake and in NAD Lungs/Chest: Trachea central Clear BS B/L, No crackles or wheezing. Cardiac: RRR. Normal S1 S2. No murmurs Circulation: Pedal pulses are intact and symmetrical. Abdomen: Normal bowel sounds. Obese. Soft. NT. ND. Extremities: No clubbing, cyanosis or edema. Warm : Nick in place Neurologic: Follows commands. Moves all 4 extremities, he appears generalized weak but his strength is symmetric in all 4 extremities he is unable to lift both of his legs on the bed and states that he hurts in his hips and knees when he tries to do it. No facial asymmetry. Cranial nerves2- 12 intact, extraocular muscles intact, PERRL AO x3, sensation to touch intact Skin: No Rash MSK: no knee or ankle swelling or redness, no swelling or redness on either of elbows or shoulders Const: General: comfortable and no acute distress Other: obese, appears generally weak. HENMT: Mouth: Yes moist mucous membranes Eyes: Sclera: sclerae normal Pupils: Equal, round and reactive pupils present Neck: Neck: supple Resp: Effort & Inspection: normal respiratory effort Auscultation: clear to auscultation bilaterally Cardio: Rate: regular rate and tachycardic Rhythm: regular rhythm Heart sounds: no murmurs GI: Inspection: non-distended Neuro: Cranial nerves: Yes Equal, round and reactive pupils present Other: Generalized weakness Extrem: General: no edema Other: 1+ pitting edema bilateral lower extremity below the knees Psych: Mental Status: mental status grossly normal Objective Data Vital Signs Vital Signs: Vital Signs - 24 hr 11/03/24 09:05 11/03/24 12:00 11/03/24 14:00 Temperature 97.9 F Pulse Rate 103 H 107 H Respiratory Rate 18 Blood Pressure 117/60 Pulse Oximetry 100 Oxygen Delivery Room Air 11/03/24 15:11 11/03/24 16:00 11/03/24 20:00 Temperature Pulse Rate 109 H 111 H Respiratory Rate 16 Blood Pressure 121/69 Pulse Oximetry 99 Oxygen Delivery Room Air 11/03/24 20:00 11/03/24 20:39 11/04/24 00:00 Temperature 97.6 F Pulse Rate 109 H 103 H 102 H Respiratory Rate 20 Blood Pressure 106/67 Pulse Oximetry 95 Oxygen Delivery 11/04/24 04:00 11/04/24 04:40 Temperature 97.6 F Pulse Rate 100 98 Respiratory Rate 20 Blood Pressure 124/71 Pulse Oximetry 95 Oxygen Delivery Intake/Output Intake/Output: Intake & Output 11/01/24 11/02/24 11/03/24 11/04/24 23:59 23:59 23:59 23:59 Intake Total 3810 1240 1730 500 Output Total 1950 1400 1000 Balance 1860 -160 730 500 Meds/Results Medications: Active Medications Generic Name Dose Route Start Last Admin Trade Name Freq PRN Reason Stop Dose Admin Acetaminophen 650 mg 10/27/24 15:29 11/04/24 01:32 Acetaminophen 325 Mg Tablet PO 650 mg Q4H PRN Administration Mild Pain (1-3) or Fever Acetaminophen 650 mg 10/27/24 16:03 Acetaminophen 650 Mg Suppository RECTAL Q6H PRN Mild Pain (1-3) or Fever Amlodipine Besylate 5 mg 11/02/24 10:35 11/03/24 08:58 Amlodipine Besylate 5 Mg Tablet PO 5 mg DAILY RASHARD Administration Dextrose 12.5 gm 10/27/24 15:32 Dextrose 50% 25 Gm/50 Ml Syringe IV PUSH PRN PRN Hypoglycemia Protocol Enoxaparin Sodium 40 mg 10/29/24 09:00 11/03/24 09:00 Enoxaparin 40 Mg/0.4 Ml Syringe SUB-Q 40 mg DAILY RASHARD Administration Glucagon 1 mg 10/27/24 15:32 Glucagon For Inj 1 Mg Vial IM PRN PRN Hypoglycemia Protocol Glucose 15 gm 10/27/24 15:32 Glucose Oral Gel 15 Gm Of Glucse In 37.5 Gm Tube PO PRN PRN Hypoglycemia Protocol Dextrose 1,000 mls @ 100 mls/hr 10/27/24 15:32 Dextrose 5% 1,000 Ml IVPB PRN PRN Hypoglycemia Protocol Piperacillin Sod/Tazobactam 100 mls @ 200 mls/hr 11/03/24 18:00 11/04/24 05:33 Sod 4.5 gm/ Sodium Chloride IVPB 200 mls/hr Q6H RASHARD Administration Insulin Aspart 2 - 4 units 10/28/24 21:00 11/03/24 20:47 Insulin Aspart (*Bkc) 100 Units/Ml SUB-Q Not Given HS RASHARD Protocol Insulin Aspart 4 - 8 units 10/28/24 09:50 11/03/24 17:14 Insulin Aspart (*Bkc) 100 Units/Ml SUB-Q 4 units TIDWM RASHARD Administration Protocol Insulin Aspart 10 units 10/31/24 08:00 11/03/24 17:13 Insulin Aspart (*Bkc) 100 Units/Ml SUB-Q 10 units TIDWM RASHARD Administration Insulin Glargine 28 units 10/31/24 09:00 11/03/24 08:59 Insulin Glargine (*Bkc) 100 Units/Ml SUB-Q 28 units QAM RASHARD Administration Labetalol HCl 20 mg 10/28/24 07:58 Labetalol Hcl Inj 100 Mg/20 Ml Vial IV PUSH Q4H PRN SBP > 160 and HR> 60 -1st choice Lisinopril 20 mg 10/29/24 09:00 11/03/24 08:58 Lisinopril 20 Mg Tablet PO 20 mg QAM RASHARD Administration Ondansetron HCl 4 mg 10/27/24 15:29 Ondansetron Inj 4 Mg/2 Ml Vial IV PUSH Q4H PRN Nausea Sodium Chloride 1 gm 11/01/24 17:00 11/03/24 17:13 Sodium Chloride 1 Gm Tablet PO 1 gm BID RASHARD Administration Sodium Chloride 10 ml 11/03/24 22:00 11/04/24 05:34 Saline Lock Flush IV PUSH 10 ml Q8HR RASHARD Administration Sodium Chloride 10 ml 11/03/24 15:56 Saline Lock Flush IV PUSH PRN PRN Flush Sodium Chloride 20 ml 11/03/24 15:56 Saline Lock Flush IV PUSH PRN PRN after blood draws Radiology Results: ITS Impressions Chest X-Ray 10/27/24 12:54 IMPRESSION: 1. No acute cardiopulmonary findings. Chest/Abdomen/Pelvis CT 10/27/24 14:37 IMPRESSION: 1. Wall thickening of the esophagus, which may be edema or esophagitis. 2. Ventral hernia containing nonobstructed small and large bowel. Cervical Spine CT 10/28/24 20:19 IMPRESSION: 1. Severe cervical spondylosis. Thoracic/Lumbar Spine CT 10/28/24 20:23 IMPRESSION: 1. Mild thoracic and lumbar spondylosis. Venous Doppler Study 10/30/24 10:43 IMPRESSION: 1. No DVT either leg. 2. Bilateral Klein's cysts. Hip CT 10/30/24 12:05 IMPRESSION: 1. Mild degenerative skeletal changes the right hip, bilateral sacralized joints and visualized lower lumbar spine. No acute osseous abnormality. Labs Labs: Laboratory Results - last 24 hr 11/03/24 11/03/24 11/03/24 11:35 15:14 16:57 WBC RBC Hgb Hct MCV MCH MCHC RDW Plt Count MPV Sodium Potassium Chloride Carbon Dioxide Anion Gap BUN Creatinine Estim Creat Clear Calc Estimated GFR Glucose POC Capillary Glucose 232 H 215 H Calcium Total Bilirubin AST ALT Alkaline Phosphatase Troponin I < 0.012 Total Protein Albumin 11/03/24 11/04/24 20:46 03:39 WBC 13.5 H RBC 3.21 L Hgb 9.2 L Hct 29.8 L MCV 92.8 MCH 28.7 MCHC 30.9 L RDW 13.7 Plt Count 673 H MPV 9.2 Sodium 132 L Potassium 4.1 Chloride 96 L Carbon Dioxide 30 Anion Gap 6 BUN 11 Creatinine 0.58 L Estim Creat Clear Calc 218 Estimated GFR > 60 Glucose 173 H POC Capillary Glucose 138 H Calcium 8.9 Total Bilirubin 0.5 AST 38 ALT 21 Alkaline Phosphatase 131 H Troponin I Total Protein 7.0 Albumin 2.5 L Quality VTE Prophylaxis VTE prophylaxis: pharmacologic ordered Hospitalist [facility] Advance Care Plan I have confirmed that the patient's Advanced Care Plan is present, code status is documented, or surrogate decision maker is listed in patient medical record.: Yes Medication Reconciliation I have utilized all available resources to obtain, update and review the patients current medications (includes all prescriptions, OTC, herbals, cannabis, and nutritional supplements).: Yes
[2024-11-04] MEDS: SODIUM CHLORIDE 1 GM TABLET PO ×2 (08:49→17:15)
[2024-11-04] MEDS: ENOXAPARIN 40 MG/0.4 ML SYRINGE SUB-Q (08:49)
[2024-11-04] MEDS: INSULIN GLARGINE (*BKC) 100 UNITS/ML 28 UNITS SUB-Q (08:49)
[2024-11-04] MEDS: INSULIN ASPART (*BKC) 100 UNITS/ML 10 UNITS SUB-Q ×3 (08:50→17:16)
[2024-11-04] MEDS: INSULIN ASPART (*BKC) 100 UNITS/ML SUB-Q (12:12)
[2024-11-05] VITALS (9 sets, daily range): BP systolic 114–139; BP diastolic 68–96; PULSE 93–109; RESP 16–20; TEMP 36.2–37.1; O2SAT 95–100
[2024-11-05] MEDS: ACETAMINOPHEN 325 MG TABLET 650 MG PO ×5 (00:34→21:01)
[2024-11-05] MEDS: PIPERACILLIN/TAZOBACTAM SOD 4.5 GM in SODIUM CHLORIDE 0.9% IV 100 ML 200 ML IVPB ×2 (00:38→05:39)
[2024-11-05] MEDS: SALINE LOCK FLUSH 10 ML IV PUSH ×3 (05:42→20:29)
[2024-11-05 05:45] LABS: Hematocrit 30.3 % (42.0-52.0); Hemoglobin 9.4 g/dL (14.0-18.0); Mean Corpuscular HGB Conc 31.0 g/dl (32-36); Mean Corpuscular Hemoglobin 28.9 pg (26-34); Mean Corpuscular Volume 93.2 fl (80-100); Platelet Count Result 676 k/mm3 (150-375); Red Blood Count 3.25 M/mm3 (4.6-6.20); White Blood Count 12.4 K/mm3 (4.5-10.0)
[2024-11-05 05:58] LABS: Alanine Aminotransferase 20 U/L (6-50); Albumin Level 2.7 g/dL (3.5-5.1); Alkaline Phosphatase 134 U/L (38-126); Anion Gap 5 mmol/L (4-12); Aspartate Amino Transferase 30 U/L (17-59); Bilirubin,Total 0.5 mg/dL (0.2-1.3); Blood Urea Nitrogen 10 mg/dL (9-20); Calcium 8.9 mg/dL (8.4-10.2); Carbon Dioxide 30 mmol/L (22-30); Chloride 97 mmol/L (98-107); Estimated CRCL calculation 226 ml/min; Estimated Glomerular Filt Rate > 60; Glucose 148 mg/dL (65-110); Potassium 4.2 mmol/L (3.4-5.0); Sodium 132 mmol/L (137-145); Total Protein 7.2 g/dL (6.3-8.2)
--- NOTE | 2024-11-05 07:22 | PM.IMPN ---
Progress Note: A&P Assessment and Plan (1) Non-insulin dependent diabetes mellitus: Status: Acute (2) Acidosis: Code(s): E87.20 - Acidosis, unspecified Status: Acute (3) Hyponatremia: Code(s): E87.1 - Hypo-osmolality and hyponatremia Status: Acute (4) Weakness: Code(s): R53.1 - Weakness Status: Acute (5) Sepsis: Qualifiers: Sepsis acute organ dysfunction status: without acute organ dysfunction Sepsis type: sepsis due to unspecified organism Qualified Code(s): A41.9 - Sepsis, unspecified organism Code(s): A41.9 - Sepsis, unspecified organism Status: Acute (6) Bacteremia: Code(s): R78.81 - Bacteremia Status: Acute (7) Hypertension: Code(s): I10 - Essential (primary) hypertension Status: Acute (8) Morbid obesity with BMI of 45.0-49.9, adult: Code(s): E66.01 - Morbid (severe) obesity due to excess calories; Z68.42 - Body mass index [BMI] 45.0-49.9, adult Status: Acute Plan 44-year-old male with PMH diabetes without current long-term use of insulin with noncompliance, alcohol use, questionable cocaine use.José Miguel marshall lives with his younger brother. reports for 4 weeks now he has felt ill with weakness and pain all over his body. denies diarrhea, cough, rash. presents with fever and acidosis with increased beta hydroxybutrate. Has had a very poor appetite. He stopped taking his metformin months ago, states some insurance issues. 4 days prior to admission his pain was so bad he reports his younger brother crushed tylenol and oxycodone pills (4 of them) into water and added [place] juice for flavor for him. when asked about cocaine reported in his urine he reports his brother must have done it? he reports 2 hard liquor shots per week? it is quite unclear and his answer isn't clear. Presents to [facility] 10/27/[facility]24 complaining of worsening weakness. ----- DKA resolved S/p IVF and insulin infusion A1c 10.8 Continue Lantus 28 units, Lispro 10 untis tid with meals and SSI with accucheks monitor Strept agalactiae bacteremia No skin infections and no abd or respiratory symptoms NEHEMIAS no valvular lesions At this time there is no source of infection F/u repeat blood culture Patient will need 14 days of Rocephin WBC elevated today 14.9,monitor S/p Rocephin S/p Zosyn due to leukocytosis Started on levofloxacin Hyponatremia present on admission initially thought to be due to hyperglycemia Continue salt tablets Na 128 today monitor Anemia B12/folate wnl Hb 9.6, Isat 16 with ferritin 2000, likely from inflammation Hypertension Continue Lisinopril and started on Amlodipine monitor Chest pain Troponin negative Reviewed EKG Full code. Lovenox 40 mg subQ q.day. PT/OT for weakness, improving however still requiring multi disciplinary care. Subjective Date/time seen: 11/05/24 07:22 Interval history: No acute events reported overnight. Patient antibiotic has been deescalated to levofloxacin Review of Systems Review of Systems: All systems reviewed & are unremarkable except as noted in HPI and below (Subjective) ROS unobtainable: Yes unobtainable due to medical condition Exam Narrative: General: Pt is alert awake and in NAD Lungs/Chest: Trachea central Clear BS B/L, No crackles or wheezing. Cardiac: RRR. Normal S1 S2. No murmurs Circulation: Pedal pulses are intact and symmetrical. Abdomen: Normal bowel sounds. Obese. Soft. NT. ND. Extremities: No clubbing, cyanosis or edema. Warm : Nick in place Neurologic: Follows commands. Moves all 4 extremities, he appears generalized weak but his strength is symmetric in all 4 extremities he is unable to lift both of his legs on the bed and states that he hurts in his hips and knees when he tries to do it. No facial asymmetry. Cranial nerves2- 12 intact, extraocular muscles intact, PERRL AO x3, sensation to touch intact Skin: No Rash MSK: no knee or ankle swelling or redness, no swelling or redness on either of elbows or shoulders Const: General: comfortable and no acute distress Other: obese, appears generally weak. HENMT: Mouth: Yes moist mucous membranes Eyes: Sclera: sclerae normal Pupils: Equal, round and reactive pupils present Neck: Neck: supple Resp: Effort & Inspection: normal respiratory effort Auscultation: clear to auscultation bilaterally Cardio: Rate: regular rate and tachycardic Rhythm: regular rhythm Heart sounds: no murmurs GI: Inspection: non-distended Neuro: Cranial nerves: Yes Equal, round and reactive pupils present Other: Generalized weakness Extrem: General: no edema Other: 1+ pitting edema bilateral lower extremity below the knees Psych: Mental Status: mental status grossly normal Objective Data Vital Signs Vital Signs: Vital Signs - 24 hr 11/04/24 08:00 11/04/24 08:00 11/04/24 08:47 Temperature Pulse Rate 87 105 H Respiratory Rate Blood Pressure 127/56 L Pulse Oximetry Oxygen Delivery Room Air Fraction of Inspired Oxygen 11/04/24 12:00 11/04/24 14:20 11/04/24 16:00 Temperature 97.3 F L Pulse Rate 105 H 102 H 101 H Respiratory Rate 18 Blood Pressure 127/76 Pulse Oximetry 100 Oxygen Delivery Fraction of Inspired Oxygen 11/04/24 19:49 11/04/24 20:00 11/04/24 20:35 Temperature Pulse Rate 101 H 102 H 63 Respiratory Rate 18 Blood Pressure Pulse Oximetry 100 93 Oxygen Delivery Room Air Room Air Fraction of Inspired Oxygen 21 21 11/04/24 22:00 11/05/24 00:00 11/05/24 04:00 Temperature 99.0 F Pulse Rate 101 H 98 98 Respiratory Rate 18 Blood Pressure 128/79 Pulse Oximetry 97 Oxygen Delivery Fraction of Inspired Oxygen 11/05/24 06:00 Temperature 98.7 F Pulse Rate 93 Respiratory Rate 18 Blood Pressure 139/76 Pulse Oximetry 100 Oxygen Delivery Fraction of Inspired Oxygen Intake/Output Intake/Output: Intake & Output 11/02/24 11/03/24 11/04/24 11/05/24 23:59 23:59 23:59 23:59 Intake Total 1240 1730 1480 100 Output Total 1400 1000 625 900 Balance -160 730 855 -800 Meds/Results Medications: Active Medications Generic Name Dose Route Start Last Admin Trade Name Freq PRN Reason Stop Dose Admin Acetaminophen 650 mg 10/27/24 15:29 11/05/24 00:34 Acetaminophen 325 Mg Tablet PO 650 mg Q4H PRN Administration Mild Pain (1-3) or Fever Acetaminophen 650 mg 10/27/24 16:03 Acetaminophen 650 Mg Suppository RECTAL Q6H PRN Mild Pain (1-3) or Fever Amlodipine Besylate 5 mg 11/02/24 10:35 11/04/24 08:49 Amlodipine Besylate 5 Mg Tablet PO 5 mg DAILY RASHARD Administration Dextrose 12.5 gm 10/27/24 15:32 Dextrose 50% 25 Gm/50 Ml Syringe IV PUSH PRN PRN Hypoglycemia Protocol Enoxaparin Sodium 40 mg 10/29/24 09:00 11/04/24 08:49 Enoxaparin 40 Mg/0.4 Ml Syringe SUB-Q 40 mg DAILY RASHARD Administration Glucagon 1 mg 10/27/24 15:32 Glucagon For Inj 1 Mg Vial IM PRN PRN Hypoglycemia Protocol Glucose 15 gm 10/27/24 15:32 Glucose Oral Gel 15 Gm Of Glucse In 37.5 Gm Tube PO PRN PRN Hypoglycemia Protocol Dextrose 1,000 mls @ 100 mls/hr 10/27/24 15:32 Dextrose 5% 1,000 Ml IVPB PRN PRN Hypoglycemia Protocol Piperacillin Sod/Tazobactam 100 mls @ 200 mls/hr 11/03/24 18:00 11/05/24 05:39 Sod 4.5 gm/ Sodium Chloride IVPB 200 mls/hr Q6H RASHARD Administration Insulin Aspart 2 - 4 units 10/28/24 21:00 11/04/24 21:26 Insulin Aspart (*Bkc) 100 Units/Ml SUB-Q Not Given HS RASHARD Protocol Insulin Aspart 4 - 8 units 10/28/24 09:50 11/04/24 17:16 Insulin Aspart (*Bkc) 100 Units/Ml SUB-Q Not Given TIDWM [facility] Protocol Insulin Aspart 10 units 10/31/24 08:00 11/04/24 17:16 Insulin Aspart (*Bkc) 100 Units/Ml SUB-Q 10 units TIDWM RASHARD Administration Insulin Glargine 28 units 10/31/24 09:00 11/04/24 08:49 Insulin Glargine (*Bkc) 100 Units/Ml SUB-Q 28 units QAM RASHARD Administration Labetalol HCl 20 mg 10/28/24 07:58 Labetalol Hcl Inj 100 Mg/20 Ml Vial IV PUSH Q4H PRN SBP > 160 and HR> 60 -1st choice Lisinopril 20 mg 10/29/24 09:00 11/04/24 08:49 Lisinopril 20 Mg Tablet PO 20 mg QAM RASHARD Administration Ondansetron HCl 4 mg 10/27/24 15:29 Ondansetron Inj 4 Mg/2 Ml Vial IV PUSH Q4H PRN Nausea Sodium Chloride 1 gm 11/01/24 17:00 11/04/24 17:15 Sodium Chloride 1 Gm Tablet PO 1 gm BID RASHARD Administration Sodium Chloride 10 ml 11/03/24 22:00 11/05/24 05:42 Saline Lock Flush IV PUSH 10 ml Q8HR RASHARD Administration Sodium Chloride 10 ml 11/03/24 15:56 Saline Lock Flush IV PUSH PRN PRN Flush Sodium Chloride 20 ml 11/03/24 15:56 Saline Lock Flush IV PUSH PRN PRN after blood draws Radiology Results: ITS Impressions Chest X-Ray 10/27/24 12:54 IMPRESSION: 1. No acute cardiopulmonary findings. Chest/Abdomen/Pelvis CT 10/27/24 14:37 IMPRESSION: 1. Wall thickening of the esophagus, which may be edema or esophagitis. 2. Ventral hernia containing nonobstructed small and large bowel. Cervical Spine CT 10/28/24 20:19 IMPRESSION: 1. Severe cervical spondylosis. Thoracic/Lumbar Spine CT 10/28/24 20:23 IMPRESSION: 1. Mild thoracic and lumbar spondylosis. Venous Doppler Study 10/30/24 10:43 IMPRESSION: 1. No DVT either leg. 2. Bilateral Klein's cysts. Hip CT 10/30/24 12:05 IMPRESSION: 1. Mild degenerative skeletal changes the right hip, bilateral sacralized joints and visualized lower lumbar spine. No acute osseous abnormality. Labs Labs: Laboratory Results - last 24 hr 11/04/24 11/04/24 11/04/24 08:24 12:01 17:12 WBC RBC Hgb Hct MCV MCH MCHC RDW Plt Count MPV Sodium Potassium Chloride Carbon Dioxide Anion Gap BUN Creatinine Estim Creat Clear Calc Estimated GFR Glucose POC Capillary Glucose 193 H 219 H 115 H Calcium Total Bilirubin AST ALT Alkaline Phosphatase Total Protein Albumin 11/04/24 11/05/24 21:03 04:19 WBC 12.4 H RBC 3.25 L Hgb 9.4 L Hct 30.3 L MCV 93.2 MCH 28.9 MCHC 31.0 L RDW 13.7 Plt Count 676 H MPV 9.0 Sodium 132 L Potassium 4.2 Chloride 97 L Carbon Dioxide 30 Anion Gap 5 BUN 10 Creatinine 0.55 L Estim Creat Clear Calc 226 Estimated GFR > 60 Glucose 148 H POC Capillary Glucose 131 H Calcium 8.9 Total Bilirubin 0.5 AST 30 ALT 20 Alkaline Phosphatase 134 H Total Protein 7.2 Albumin 2.7 L Quality VTE Prophylaxis VTE prophylaxis: pharmacologic ordered Hospitalist MIPS Advance Care Plan I have confirmed that the patient's Advanced Care Plan is present, code status is documented, or surrogate decision maker is listed in patient medical record.: Yes Medication Reconciliation I have utilized all available resources to obtain, update and review the patients current medications (includes all prescriptions, OTC, herbals, cannabis, and nutritional supplements).: Yes
[2024-11-05] MEDS: ENOXAPARIN 40 MG/0.4 ML SYRINGE SUB-Q (08:45)
[2024-11-05] MEDS: INSULIN GLARGINE (*BKC) 100 UNITS/ML 28 UNITS SUB-Q (08:46)
[2024-11-05] MEDS: SODIUM CHLORIDE 1 GM TABLET PO ×2 (08:46→17:31)
[2024-11-05] MEDS: INSULIN ASPART (*BKC) 100 UNITS/ML 10 UNITS SUB-Q ×3 (08:48→17:30)
[2024-11-05] MEDS: INSULIN ASPART (*BKC) 100 UNITS/ML SUB-Q (12:34)
[2024-11-05 13:09] LABS: Osmolality, Serum 272 mOsmol/kg (275-295)
--- NOTE | 2024-11-05 18:00 | PC.NURSE ---
On 11/05/24, the RN, Erika Tomlin, provided care and completed [facility] documentation on this patient. I have reviewed the RN's documentation and agree with the findings.
[2024-11-06] VITALS: PULSE 100
[2024-11-06] MEDS: ACETAMINOPHEN 325 MG TABLET 650 MG PO ×2 (01:17→08:05)
[2024-11-06 04:00] VITALS: PULSE 101
[2024-11-06 04:15] VITALS: BP 158/81; PULSE 98; RESP 20; TEMP 36.9; O2SAT 99
[2024-11-06 05:06] LABS: Hematocrit 31.1 % (42.0-52.0); Hemoglobin 9.6 g/dL (14.0-18.0); Mean Corpuscular HGB Conc 30.9 g/dl (32-36); Mean Corpuscular Hemoglobin 28.6 pg (26-34); Mean Corpuscular Volume 92.6 fl (80-100); Platelet Count Result 628 k/mm3 (150-375); Red Blood Count 3.36 M/mm3 (4.6-6.20); White Blood Count 11.7 K/mm3 (4.5-10.0)
[2024-11-06] MEDS: SALINE LOCK FLUSH 10 ML IV PUSH (05:13)
[2024-11-06 05:30] LABS: Alanine Aminotransferase 17 U/L (6-50); Albumin Level 2.7 g/dL (3.5-5.1); Alkaline Phosphatase 134 U/L (38-126); Anion Gap 5 mmol/L (4-12); Aspartate Amino Transferase 33 U/L (17-59); Bilirubin,Total 0.7 mg/dL (0.2-1.3); Blood Urea Nitrogen 7 mg/dL (9-20); Calcium 9.2 mg/dL (8.4-10.2); Carbon Dioxide 29 mmol/L (22-30); Chloride 97 mmol/L (98-107); Estimated CRCL calculation 233 ml/min; Estimated Glomerular Filt Rate > 60; Glucose 144 mg/dL (65-110); Potassium 4.2 mmol/L (3.4-5.0); Sodium 131 mmol/L (137-145); Total Protein 7.4 g/dL (6.3-8.2)
[2024-11-06] MEDS: SODIUM CHLORIDE 1 GM TABLET PO (07:58)
[2024-11-06 08:00] VITALS: PULSE 112
[2024-11-06] MEDS: ENOXAPARIN 40 MG/0.4 ML SYRINGE SUB-Q (08:08)
[2024-11-06] MEDS: INSULIN GLARGINE (*BKC) 100 UNITS/ML 28 UNITS SUB-Q (08:09)
[2024-11-06] MEDS: INSULIN ASPART (*BKC) 100 UNITS/ML 10 UNITS SUB-Q ×2 (08:13→12:51)
--- NOTE | 2024-11-06 10:22 | PM.DS ---
DS: Admitting Diagnosis Discharge Date 11/06/24 Admitting Diagnosis Diabetic ketoacidosis Strep agalactiae bacteremia DS: Discharge Diagnosis Discharge Diagnosis (1) Hypertension: Code(s): I10 - Essential (primary) hypertension Status: Acute (2) Poorly controlled diabetes mellitus: Code(s): E11.65 - Type 2 diabetes mellitus with hyperglycemia Status: Acute (3) DKA (diabetic ketoacidosis): Code(s): E11.10 - Type 2 diabetes mellitus with ketoacidosis without coma Status: Acute (4) Morbid obesity with BMI of 45.0-49.9, adult: Code(s): E66.01 - Morbid (severe) obesity due to excess calories; Z68.42 - Body mass index [BMI] 45.0-49.9, adult Status: Acute (5) Hyponatremia: Code(s): E87.1 - Hypo-osmolality and hyponatremia Status: Acute (6) Metabolic acidosis: Code(s): E87.20 - Acidosis, unspecified Status: Acute (7) Sepsis: Qualifiers: Sepsis acute organ dysfunction status: without acute organ dysfunction Sepsis type: sepsis due to unspecified organism Qualified Code(s): A41.9 - Sepsis, unspecified organism Code(s): A41.9 - Sepsis, unspecified organism Status: Acute DS: Summary Hospital Course Reason for hospitalization: Diabetic ketoacidosis Hospital Course: 44-year-old male with PMH diabetes without current long-term use of insulin with noncompliance, alcohol use, questionable cocaine use. Presented with weakness and pain all over his body. Had fever and acidosis with increased beta hydroxybutrate. Was found to be in diabetic ketoacidosis. Was admitted to ICU on insulin drip. Transition to subcutaneous insulin once anion gap closed. Patient is being discharged on Lantus along with mealtime insulin Was also found to have sepsis in setting of Streptococcus agalactiae bacteremia. Transthoracic echocardiogram with no valvular lesions. Patient was treated with Zosyn, Rocephin. Was eventually transitioned to levofloxacin. Patient will continue with 14 days of antibiotic with last negative blood culture. Leukocytosis is improving. Started on lisinopril and Norvasc for high blood pressure. Also had hyponatremia which is improving. Patient is being discharged to custodial in stable condition. Status at Discharge Functional status at discharge: independent ambulation Overall status at discharge: patient is back to baseline Time Spent with Patient Time attestation: Total time spent providing and/or coordinating discharge services: Exam Narrative: General: Pt is alert awake and in NAD Lungs/Chest: Trachea central Clear BS B/L, No crackles or wheezing. Cardiac: RRR. Normal S1 S2. No murmurs Circulation: Pedal pulses are intact and symmetrical. Abdomen: Normal bowel sounds. Obese. Soft. NT. ND. Extremities: No clubbing, cyanosis or edema. Warm : Nick in place Neurologic: Follows commands. Moves all 4 extremities, he appears generalized weak but his strength is symmetric in all 4 extremities he is unable to lift both of his legs on the bed and states that he hurts in his hips and knees when he tries to do it. No facial asymmetry. Cranial nerves2- 12 intact, extraocular muscles intact, PERRL AO x3, sensation to touch intact Skin: No Rash MSK: no knee or ankle swelling or redness, no swelling or redness on either of elbows or shoulders DS: Data Data Completed and Pending Labs on day of discharge: Labs from last 24 hours 11/06/24 11/05/24 11/05/24 04:02 19:45 17:24 WBC 11.7 H RBC 3.36 L Hgb 9.6 L Hct 31.1 L MCV 92.6 MCH 28.6 MCHC 30.9 L RDW 13.4 Plt Count 628 H MPV 8.9 Sodium 131 L Potassium 4.2 Chloride 97 L Carbon Dioxide 29 Anion Gap 5 BUN 7 L Creatinine 0.53 L Estim Creat Clear Calc 233 Estimated GFR > 60 Glucose 144 H POC Capillary Glucose 113 H 146 H Serum Osmolality Calcium 9.2 Total Bilirubin 0.7 AST 33 ALT 17 Alkaline Phosphatase 134 H Total Protein 7.4 Albumin 2.7 L 11/05/24 10/29/24 11:37 03:50 WBC RBC Hgb Hct MCV MCH MCHC RDW Plt Count MPV Sodium Potassium Chloride Carbon Dioxide Anion Gap BUN Creatinine Estim Creat Clear Calc Estimated GFR Glucose POC Capillary Glucose 210 H Serum Osmolality 272 L Calcium Total Bilirubin AST ALT Alkaline Phosphatase Total Protein Albumin Preliminary micro results at discharge 11/01/24 11:09 Blood Culture - Preliminary Blood 11/01/24 11:20 Blood Culture - Preliminary Blood Discharge Plan Discharge Attending physician on discharge: Roselia Thompson Consulting providers: Guzman Barney; Tyson Dent; Mattie Villeda Discharging Clinician: Roselia Thompson Anticipated Discharge Date/Time: 11/06/24 10:12 Patient Disposition: SNF Activity: as tolerated Diet: diabetic Patient Instructions: Hypoglycemia in a Person with Diabetes (DC), Basic Carbohydrate Counting (DC), Suicide Prevention (DC) Patient Language: Ghanaian Stand Alone Forms: General Discharge Information Follow-up/Referrals: Fiona,Harry Sweet MD [Primary Care Provider, Unknown] - 2 Weeks Discharge Medications: New (DME) blood-glucose meter [OneTouch Verio Flex meter] Misc Qty: 1 0RF Rx Instructions: May substitute to in-stock meter and/or covered by insurance. Use As Directed (DME) OneTouch Verio test strips Strip Qty: 1 0RF Rx Instructions: May substitute to in-stock and/or covered by insurance strips. Use As Directed (DME) pen needle, diabetic 32 gauge x 5/32 Needle Qty: 1 0RF Rx Instructions: As Directed (DME) lancets [OneTouch Delica Plus Lancet] 30 gauge misc Qty: 1 0RF Rx Instructions: May substitute to in-stock and/or covered by insurance lancets. Use As Directed sodium chloride 1,000 mg Tablet,Soluble 1,000 mg PO BID Qty: 60 0RF amlodipine 10 mg Tablet 10 mg PO DAILY Qty: 90 0RF levofloxacin 750 mg tablet 750 mg PO DAILY Qty: 7 0RF lisinopril 20 mg Tablet 20 mg PO QAM Qty: 90 0RF insulin aspart U-100 100 unit/mL (3 mL) insulin pen 10 unit subcut TID Qty: 15 0RF insulin glargine [Lantus Solostar U-100 Insulin] 100 unit/mL (3 mL) insulin pen 28 unit subcut QPM Qty: 15 0RF Discontinued metformin 500 mg tablet 500 mg PO DAILY ibuprofen 200 mg tablet 200 mg PO Q6H PRN (Reason: fever or pain) Date of admission: 10/27/24 15:29 Primary Care Provider: AbbyHarry Admitting Provider: Radha Rucker Attending physician on admission: Radha Rucekr Condition: Improved
[2024-11-06 12:00] VITALS: PULSE 113
[2024-11-06] MEDS: NEOMYCIN/POLYMYXIN/BACITRACIN OINTMENT PACKET 1 PACKET (12:39)
[2024-11-06 12:55] LABS: Osmolality, Urine 762
== END 2024-11-06 16:36 | DRG 720 ==
LOC: ANHED 15:29 → ANHICU 15:43 → ANHIMU 10-30 06:41 → ANH2MED 11-01 23:23
PROVIDERS: Emergency Medicine; General Practice; Internal Medicine; Internal Medicine Cardiovascular Disease; Internal Medicine Nephrology; Nurse Practitioner; Nurse Practitioner Gerontology; Admitting Provider General Practice; Emergency Provider Family Medicine; PCP Family Medicine; Visit Provider Internal Medicine
PROC: B24BZZ4 Ultrasonography of Heart with Aorta, Transesophageal (ICD-10-PCS; CPT 93312; principal; 2024-11-02 08:00)
DX: A40.1 Sepsis due to streptococcus, group B (principal); E66.01 Morbid (severe) obesity due to excess calories; E87.1 Hypo-osmolality and hyponatremia; J96.00 Acute respiratory failure, unspecified whether with hypoxia or hypercapnia; E11.10 Type 2 diabetes mellitus with ketoacidosis without coma; E87.5 Hyperkalemia; N39.0 Urinary tract infection, site not specified; Z91.148 Patient's other noncompliance with medication regimen for other reason; M47.812 Spondylosis without myelopathy or radiculopathy, cervical region; M47.816 Spondylosis without myelopathy or radiculopathy, lumbar region; M47.814 Spondylosis without myelopathy or radiculopathy, thoracic region; I10 Essential (primary) hypertension; F14.90 Cocaine use, unspecified, uncomplicated; R60.0 Localized edema; F10.90 Alcohol use, unspecified, uncomplicated; D64.9 Anemia, unspecified; R53.1 Weakness; Z68.42 Body mass index [BMI] 45.0-49.9, adult; Z79.84 Long term (current) use of oral hypoglycemic drugs; Z20.822 Contact with and (suspected) exposure to COVID-19
CPT/HCPCS: 36415; 36569; 36600; 71046; 71260; 72126; 72129; 72132; 73700; 74177; 80048; 80053; 80202; 80307; 81001; 82010; 82375; 82533; 82550; 82607; 82728; 82746; 82805; 82948; 83036; 83050; 83540; 83550; 83605; 83735; 83930; 83935; 84100; 84145; 84155; 84156; 84165; 84166; 84295; 84300; 84443; 84484; 85018; 85025; 85027; 85046; 85610; 85730; 86140; 87040; 87086; 87186; 87637; 87641; 93005; 93312; 93320; 93325; 93970; 96360; 97110; 97162; 97165; 97530; 97535; 99285; A9270; C1751; C8929; J0692; J0696; J1163; J1650; J1741; J1815; J2250; J2405; J2470; J2543; J3010; J3373; J3480; J7030; J7040; J7120; P9047; Q9957; Q9967